=== PATIENT | female | born 1930 | race Caucasian/White ===

== ENCOUNTER 2018-07-10 14:53 | Inpatient (IN) | payer OTHER, MEDICARE ==
[2018-07-10] MEDS ORDERED: ONDANSETRON 4 MG/2 ML VIAL ONE ×2 (15:21→22:52)
[2018-07-10] MEDS ORDERED: FENTANYL CITR 100 MCG/2 ML ONE (15:21)
[2018-07-10] MEDS ORDERED: HYDROMORPHONE HCL 0.5 MG/0.5 ML INJ ONE ×2 (15:58→19:33)
[2018-07-10 16:15] LABS: Urine Blood TRACE (NEG); Urine Glucose NEGATIVE (NEG); Urine Protein NEGATIVE (NEG); Urine Specific Gravity 1.015 (1.005-1.030)
--- NOTE | 2018-07-10 16:36 | RAD REPORT ---
EXAM DESCRIPTION: CT - Head C Spine Mpr Wo Con - 07/10/2018 4:21 pm CLINICAL HISTORY: Head and neck injury status post fall. Head and neck pain COMPARISON: None. TECHNIQUE: Computed axial tomography of the head and cervical spine was obtained. Sagittal and coronal reconstruction was performed. All CT scans are performed using dose optimization technique as appropriate and may include automated exposure control or mA/KV adjustment according to patient size. FINDINGS: An intracranial bleed is not seen. The ventricles are normal in caliber. An extra-axial fl uid collection is not noted. A 9 millimeter soft tissue nodule abuts the left lateral ventricle. An equivocal 5 millimeter nodule abuts the right lateral ventricle. Fluid is present within the maxillary and sphenoid sinuses. A cervical fracture is not visualized. No dislocation is noted. Mild anterior subluxation of C4 on C5 is present. Soft tissue swelling is not seen. Spondylosis invol ves mid and distal cervical spine A 29 millimeter left thyroid nodule is present. A smaller right thyroid nodule is seen IMPRESSION: Small soft tissue nodules which abuts the lateral ventricles. These may represent masses or volume averaging of normal brain parenchyma. I suspect these are benign. However, it is recommend ed that the patient have a nonemergent MRI brain with contrast for further evaluation. No acute intracranial abnormality is seen A cervical fracture is not visualized. Mild anterior subluxation of C4 on C5 probably is chronic. If the patient has clinical symptoms to suggest spinal cord/ligamentous pathology then MRI would be nolan mmended Thyroid nodules. Nonemergent thyroid ultrasound is recommended
--- NOTE | 2018-07-10 16:44 | RAD REPORT ---
EXAM DESCRIPTION: RAD - Pelvis - 07/10/2018 4:38 pm CLINICAL HISTORY: Pelvic pain status post fall FINDINGS: The bones are osteoporotic No fracture or dislocation is seen. A left hip arthroplasty has been performed If the patient continues have symptoms to suggest an occult fracture MRI would be recommended
[2018-07-10] MEDS ORDERED: PROPOFOL 200 MG/20 ML VIAL IV ONE (17:29)
[2018-07-10] MEDS ORDERED: NA CHLORIDE 0.9% 1,000 ML ONE (17:31)
--- NOTE | 2018-07-10 17:40 | RAD REPORT ---
EXAM DESCRIPTION: RAD - Shoulder Right 2 View - 07/10/2018 4:38 pm CLINICAL HISTORY: Right shoulder pain status post fall FINDINGS: The bones are osteoporotic Anterior dislocation involves the humeral head. 27 millimeter density lies lateral to glenoid likely indicating an acute avulsion fracture perhaps f rom the humeral head. Less likely this represents artifact. Further evaluation with CT may be helpful
--- NOTE | 2018-07-10 17:40 | RAD REPORT ---
EXAM DESCRIPTION: RAD - Knee Right 2 View - 07/10/2018 4:38 pm CLINICAL HISTORY: Right knee pain status post fall FINDINGS: The bones are osteoporotic. Right knee arthroplasty has been performed. The patella appears dislocated laterally. A hemarthrosis is suspected. This could be secondary to the patellar dislocation or an occult fractur e. If clinically indicated further evaluation with MRI or CT could be obtained
--- NOTE | 2018-07-10 18:45 | RAD REPORT ---
EXAM DESCRIPTION: CT - Pelvis Wo Cont - 07/10/2018 6:24 pm CLINICAL HISTORY: Fall, pelvic pain, right-sided hip pain COMPARISON: None. TECHNIQUE: Axial 2 millimeter thick images of the pelvis obtained with sagittal and coronal reformat annalisa images generated and reviewed. FINDINGS: Lower lumbar degenerative changes are present. Lumbar spine is only partially imaged. No fracture of the bony pelvis. No sacral ala acute finding seen. SI joint degenerative changes are p resent. 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 No mass or hematoma seen in the soft tissues. No foreign gin dy or air in the soft tissues. IMPRESSION: No fracture or acute finding identified.
--- NOTE | 2018-07-10 18:54 | RAD REPORT ---
EXAM DESCRIPTION: CT - Knee Right Wo Cont - 07/10/2018 6:29 pm CLINICAL HISTORY: Fall, knee pain, history of arthroplasty, suspected dislocation COMPARISON: Right knee same date TECHNIQUE: Axial 2 millimeter thick images of the leg were obtained from distal femoral shaft to pro ximal tibia shaft. Sagittal and coronal reformatted images were generated and reviewed. FINDINGS: Osteopenic changes are present in the distal femur. No distal femur fracture identifiable. No fracture of the proximal fibula or proximal tibia seen. [place] bone immediately adjacent to the i mplant is limited in ability to assess the bone. No gross deformity seen. Patient overall is osteopen ic. A large joint effusion is present. There is a fat fluid level. This would support a lipoma hemarthros is. Patient could have chronic joint effusion as well. On CT imaging the patella is not dislocated. T his may be self reduced in the positioning for the examination. Multiple small fracture planes of the patella are seen rather than a single patella fracture plane. There is no distraction or separation of large patella fracture fragments. Bones are osteopenic in the patella. No air or foreign body. IMPRESSION: Multiple small fracture planes are seen traversing the patella. No distraction or separa tion of the patella into large fracture fragments. Large lipoma hemarthrosis. The patella is normally positioned. Any dislocation may have been reduced in the process of positioni ng the patient for this examination. Knee prosthesis in place. This limits assessment of the bone medially adjacent to the implant. Femur and tibia fractures are not seen.
--- NOTE | 2018-07-10 19:51 | RAD REPORT ---
EXAM DESCRIPTION: Shoulder Right 2 View - 07/10/2018 6:41 pm CLINICAL HISTORY: Shoulder dislocation, reduction attempts COMPARISON: July 10 TECHNIQUE: Internal rotation and scapular Y-views obtained. FINDINGS: Anterior dislocation of the humeral head remains. A faint crescent-shaped bony density is present along the inferior margin of the glenoid. There is a large bone defect seen along the humeral head where it impacts the anterior margin of the glenoid. Positioning of the humeral head has not ch anged. IMPRESSION: Humeral head remains dislocated anterior to the glenoid. Large fracture fragment from the humeral head is suspected. The donor site of the humeral head is imp acted on the glenoid.
--- NOTE | 2018-07-10 20:27 | RAD REPORT ---
EXAM DESCRIPTION: MRI - C Spine Wo Cont - 07/10/2018 7:56 pm CLINICAL HISTORY: Neck pain, fall COMPARISON: CT cervical spine same date TECHNIQUE: Sagittal T1-weighted, T2-weighted and T2-STIR sequences were obtained as well as T2 medic sequence. FINDINGS: Cervical bodies are normal in height. No fracture or acute cervical body finding. There is a mild anterior subluxation of C4 relative to C5. Minimal C5 retrolisthesis relative to C6. C3-4 dis c space is narrowed. 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 C5-6 and C6-7 disc space na rrowing seen. No paraspinal mass. Cerebellar tonsils and mid-line skull base show no suspicious finding. No significant finding at the C1 and C2 levels. C2-3 level: No significant findings. C3-4 level: No significant findings. C4-5 level: Disc bulge and posterior ligamentous thickening seen. Spinal stenosis is present down to 9 mm. Facet degenerative change present with mild bilateral bony foraminal encroachment. C5-6 level: Prominent endplate spurring and disc bulge changes contacted do not flatten the anterior cord. Midline canal diameter is 9 mm. Bilateral foraminal encroachment present right greater than lef t from uncovertebral joint hypertrophy. C6-7 level: Disc bulge and endplate spurring changes are present. Canal in the midline is 10 mm. C7-T1 level: No significant findings. Cervical cord shows no focal narrowing, expansion or signal abnormality. IMPRESSION: Multilevel cervical spondylosis changes are present as detailed. Mild spinal stenosis pr esent at C4-5 and C5-6. Multilevel foraminal stenosis detailed in the body of the report. No cord flattening or signal abnormality.
[2018-07-10 20:31] LABS: Absolute Lymphocytes (CBC) 0.7 K/uL (0.7-4.9); Absolute Monocytes 0.4 K/uL (0.1-1.3); Absolute Neutrophil 8.5 K/uL (1.8-8.0); Basophils % 0.5 % (0-1.3); Eosinophils % 0.1 % (0-4.4); Hematocrit 33.7 % (36.0-45.0); Lymphocytes % 7.6 % (15.3-44.8); MCH 29.1 pg (27.0-35.0); MCV 87.8 fL (80-100); MPV 9.4 fL (7.6-11.3); Monocytes % 4.3 % (3.3-12.3); RBC Red Blood Cell Count 3.83 M/uL (3.86-4.86)
[2018-07-10 20:42] LABS: Protime INR 1.03
[2018-07-10] MEDS ORDERED: MIDAZOLAM HCL 2 MG/2 ML INJ ONE ×2 (20:45→20:48)
[2018-07-10] MEDS ORDERED: ETOMIDATE 20 MG/10 ML VIAL IV ONE (20:46)
[2018-07-10 20:51] LABS: ALT/SGPT 20 U/L (12-78); AST/SGOT 17 U/L (15-37); Albumin 3.4 g/dL (3.4-5.0); Alkaline Phosphatase 108 U/L (45-117); BUN Blood Urea Nitrogen 27 mg/dL (7-18); Bicarbonate 29 mmol/L (21-32); Bilirubin Direct 0.2 mg/dL (0-0.2); Bilirubin Total 0.6 mg/dL (0.2-1.0); CKMB Creatine Kinase MB < 1.0 ng/mL (0.3-3.6); Creatine Phosphokinase 86 U/L (26-192); Glucose Level 152 mg/dL (74-106); Magnesium 1.5 mg/dL (1.8-2.4); NT PRO-BNP 541 pg/mL (<450); Potassium 3.8 mmol/L (3.5-5.1); Protein, Total 6.5 g/dL (6.4-8.2); Sodium Level 142 mmol/L (136-145)
--- NOTE | 2018-07-10 21:12 | RAD REPORT ---
EXAM DESCRIPTION: RAD - Chest Single View - 07/10/2018 8:39 pm CLINICAL HISTORY: Fall, chest pain, shoulder pain COMPARISON: July 2008 TECHNIQUE: AP portable chest image was obtained 2026 hours . FINDINGS: No pulmonary contusion, pneumothorax or acute lung parenchymal process. No failure or volu me overload. Heart size is prominent. Failure or volume overload are not suspected. No measurable ple ural effusion and no pneumothorax. Anterior dislocation of the right humerus present. Right shoulder findings are detailed on separate reports. No acute aortic findings suspected. IMPRESSION: No acute cardiopulmonary process. Right shoulder findings detailed on separate reports.
--- NOTE | 2018-07-10 21:16 | RAD REPORT ---
EXAM DESCRIPTION: Shoulder Right 2 View - 07/10/2018 9:07 pm CLINICAL HISTORY: Post reduction examination COMPARISON: July 10 TECHNIQUE: Internal and scapular Y-views obtained. FINDINGS: Right humeral head has been reduced back to the glenoid. Large fracture fragment is presen t as previously noted.
[2018-07-10 21:24] LABS: Blood Morphology Comment NOT SEEN (NOT SEEN); Platelet Estimate ADEQ; Urine White Blood Cell Casts OK
[2018-07-10] MEDS ORDERED: CEFTRIAXONE/SWI 1gm 1 GM/10 ML SYR ONE (22:20)
[2018-07-10] MEDS ORDERED: MAGNESIUM SULFATE 1 gm IVPB 1 GM/100 ML BAG IV ONE (22:20)
--- NOTE | 2018-07-10 22:24 | EDPHYS ---
Physician Documentation [facility] Name: Loretta Davidson Age: 88 yrs Sex: Female : 1930 Arrival Date: 07/10/2018 Time: 14:58 Bed 30 Private MD: ED Physician Gee Witt HPI: 07/10 22:11 This 88 yrs old Female presents to ER via EMS with complaints of Fall Injury. domingo 22:11 Details of fall: The patient fell from an upright position, while walking. Onset: The domingo symptoms/episode began/occurred just prior to arrival. Associated injuries: The patient sustained anterior aspect of right shoulder and posterior aspect of right shoulder, decreased range of motion, deformity, painful injury, right knee, decreased range of motion. Historical: - Allergies: 15:01 Codeine; rv 15:01 Ibuprofen; rv 15:01 PENICILLINS; rv - Home Meds: 15:01 None [Active]; rv - PMHx: 15:01 HIP FRACTURE; Hypertension; COPD; rv - PSHx: 15:01 None; rv - Immunization history:: Adult Immunizations up to date. - Social history:: Smoking status: Patient/guardian denies using tobacco, never smoked. - Immunization history: Last tetanus immunization: - up to date. - Ebola Screening: : Patient negative for fever greater than or equal to 101.5 degrees Fahrenheit, and additional compatible Ebola Virus Disease symptoms Patient denies exposure to infectious person Patient denies travel to an Ebola-affected area in the 21 days before illness onset. - Family history:: not pertinent. ROS: 22:11 Constitutional: Negative for fever, chills, and weight loss, Eyes: Negative for injury, domingo pain, redness, and discharge, ENT: Negative for injury, pain, and discharge, Neck: Negative for injury, pain, and swelling, Cardiovascular: Negative for chest pain, palpitations, and edema, Respiratory: Negative for shortness of breath, cough, wheezing, and pleuritic chest pain, Abdomen/GI: Negative for abdominal pain, nausea, vomiting, diarrhea, and constipation, Back: Negative for injury and pain, : Negative for injury, bleeding, discharge, and swelling, Skin: Negative for injury, rash, and discoloration, Neuro: Negative for headache, weakness, numbness, tingling, and seizure, Psych: Negative for depression, anxiety, suicide ideation, homicidal ideation, and hallucinations, Allergy/Immunology: Negative for hives, rash, and allergies, Endocrine: Negative for neck swelling, polydipsia, polyuria, polyphagia, and marked weight changes, Hematologic/Lymphatic: Negative for swollen nodes, abnormal bleeding, and unusual bruising. 22:11 MS/extremity: Positive for injury or acute deformity, decreased range of motion, pain, of the right arm and right leg. Exam: 22:11 Constitutional: This is a well developed, well nourished patient who is awake, alert, domingo and in no acute distress. Head/Face: Normocephalic, atraumatic. Eyes: Pupils equal round and reactive to light, extra-ocular motions intact. Lids and lashes normal. Conjunctiva and sclera are non-icteric and not injected. Cornea within normal limits. Periorbital areas with no swelling, redness, or edema. ENT: Nares patent. No nasal discharge, no septal abnormalities noted. Tympanic membranes are normal and external auditory canals are clear. Oropharynx with no redness, swelling, or masses, exudates, or evidence of obstruction, uvula midline. Mucous membranes moist. Neck: Trachea midline, no thyromegaly or masses palpated, and no cervical lymphadenopathy. Supple, full range of motion without nuchal rigidity, or vertebral point tenderness. No Meningismus. Chest/axilla: Normal chest wall appearance and motion. Nontender with no deformity. No lesions are appreciated. Cardiovascular: Regular rate and rhythm with a normal S1 and S2. No gallops, murmurs, or rubs. Normal PMI, no JVD. No pulse deficits. Respiratory: Lungs have equal breath sounds bilaterally, clear to auscultation and percussion. No rales, rhonchi or wheezes noted. No increased work of breathing, no retractions or nasal flaring. Abdomen/GI: Soft, non-tender, with normal bowel sounds. No distension or tympany. No guarding or rebound. No evidence of tenderness throughout. Back: No spinal tenderness. No costovertebral tenderness. Full range of motion. Female : Normal external genitalia. Skin: Warm, dry with normal turgor. Normal color with no rashes, no lesions, and no evidence of cellulitis. Neuro: Awake and alert, GCS 15, oriented to person, place, time, and situation. Cranial nerves II-XII grossly intact. Motor strength 5/5 in all extremities. Sensory grossly intact. Cerebellar exam normal. Normal gait. Psych: Awake, alert, with orientation to person, place and time. Behavior, mood, and affect are within normal limits. 22:11 Musculoskeletal/extremity: Extremities: noted in the anterior aspect of right shoulder and posterior aspect of right shoulder: decreased ROM, pain, swelling, tenderness, ROM: limited active range of motion due to pain, limited passive range of motion due to pain, Circulation is intact in all extremities. Sensation intact. Compartment Syndrome exam of affected extremity: is normal. DVT Exam: negative Homans' sign noted on exam, no appreciated bluish discoloration, no erythema, no increased warmth, pain, swelling, tenderness. Vital Signs: 15:02 BP 136 / 61; Pulse 64; Temp 98.9(O); Pulse Ox 96% ; rv 16:06 BP 103 / 62; Pulse 64; Pulse Ox 99% on 2 lpm NC; rv 16:46 BP 139 / 75; Pulse 60; Resp 18; Pulse Ox 99% on NC; tm3 17:22 Weight 86.18 kg (R); Height 5 ft. 6 in. (167.64 cm) (R); rv 17:46 BP 123 / 57; Pulse 63; Resp 27; Pulse Ox 98% on 2 lpm NC; rv 18:47 BP 98 / 68; Pulse 60; Resp 22; Pulse Ox 100% on 2 lpm NC; rv 19:11 BP 132 / 72; Pulse 63; Pulse Ox 98% on 2 lpm NC; rv 21:29 BP 158 / 74; Pulse 57; Resp 18; Pulse Ox 100% on 2 lpm NC; rv 17:22 Body Mass Index 30.67 (86.18 kg, 167.64 cm) rv Floyd Coma Score: 23:31 Eye Response: spontaneous(4). Verbal Response: oriented(5). Motor Response: obeys rv commands(6). Total: 15. Trauma Score (Adult): 23:31 Eye Response: spontaneous(1); Verbal Response: oriented(1); Motor Response: obeys rv commands(2); Systolic BP: > 89 mm Hg(4); Respiratory Rate: 10 to 29 per min(4); [place] Score: 15; Trauma Score: 12 Procedures: 07/11 07:55 Reduction: of the right shoulder, using traction, Immobilized with sling, Patient gs tolerated well. Post reduction film - still dislocated have called dr rodriguez to help reduce. Moderate sedation: Pre-procedure assessment: the patient has been NPO 4 hour(s) prior to arrival, ASA physical classification: III - organic disease with definite functional impairment, Airway assessment: able to hyperextend neck, able to maintain airway, can open mouth without difficulty, Mallampati classification of tongue size: II - faucial pillars and soft palate can be visualized, but uvula is masked by the base of the tongue, Monitoring during procedure: cardiac technician, continuous pulse oximetry, nurse at bedside at all times, Medications employed: propofol, Post-procedure assessment: the patient is mildly sedated, Mitchell sedation score: 2 - patient cooperative, oriented, and tranquil, Respiratory status: even and unlabored. MDM: 07/10 15:23 Patient medically screened. gs 07/11 07:55 Differential diagnosis: closed head injury, fracture, laceration, dislocation. Data gs reviewed: vital signs, nurses notes. Physician consultation: Jose Rodriguez MD and will see patient in ED. 07/10 15:57 Order name: Urine Dipstick--Ancillary (enter results); Complete Time: 16:59 ag 07/10 20:02 Order name: Basic Metabolic Panel; Complete Time: 22:10 [facility] 07/10 20:02 Order name: CBC with Diff; Complete Time: 22:10 [facility] 07/10 20:02 Order name: Creatinine for Radiology; Complete Time: 22:10 [facility] 07/10 20:02 Order name: Type And Screen; Complete Time: 22:10 [facility] 07/10 20:02 Order name: Ckmb; Complete Time: 22:10 [facility] 07/10 20:02 Order name: CPK; Complete Time: 22:10 [facility] 07/10 20:02 Order name: LFT's; Complete Time: 22:10 [facility] 07/10 20:02 Order name: Magnesium; Complete Time: 22:10 [facility] 07/10 20:02 Order name: NT PRO-BNP; Complete Time: 22:10 [facility] 07/10 20:02 Order name: PT-INR; Complete Time: 22:10 [facility] 07/10 20:02 Order name: Ptt, Activated; Complete Time: 22:10 [facility] 07/10 20:02 Order name: Troponin (emerg Dept Use Only); Complete Time: 22:10 [facility] 07/10 21:23 Order name: CBC Smear Scan; Complete Time: 22:10 [facility] 07/10 15:28 Order name: CT Head C Spine; Complete Time: 16:59 07/10 15:28 Order name: Shoulder Right (2 View) XRAY; Complete Time: 17:47 07/10 15:28 Order name: Pelvis XRAY; Complete Time: 16:59 07/10 16:37 Order name: Knee Right 2 View; Complete Time: 17:47 [facility] 07/10 18:07 Order name: Shoulder Right (2 View) XRAY; Complete Time: 19:59 07/10 18:07 Order name: CT Pelvis wo Cont; Complete Time: 18:52 07/10 18:19 Order name: Knee Right Wo Cont; Complete Time: 19:59 [facility] 07/10 22:11 Order name: Urine Culture [facility] 07/10 22:32 Order name: Basic Metabolic Panel [facility] 07/10 22:32 Order name: Basic Metabolic Panel [facility] 07/10 22:32 Order name: CBC with Automated Diff [facility] 07/10 22:32 Order name: CBC with Automated Diff [facility] 07/10 22:32 Order name: Troponin I [facility] 07/10 22:32 Order name: Troponin I [facility] 07/10 22:32 Order name: Troponin I [facility] 07/10 18:19 Order name: C Spine Wo Cont; Complete Time: 22:10 [facility] 07/10 20:02 Order name: Labs collected and sent [facility] 07/10 20:02 Order name: Urine Dipstick-Ancillary (obtain specimen) [facility] 07/10 20:02 Order name: XRAY Chest (1 view); Complete Time: 22:10 [facility] 07/10 20:02 Order name: EKG; Complete Time: 20:03 [facility] 07/10 20:02 Order name: Cardiac monitoring; Complete Time: 20:28 [facility] 07/10 20:02 Order name: EKG - Nurse/Tech; Complete Time: 21:35 [facility] 07/10 20:02 Order name: IV Saline Lock; Complete Time: 20:28 [facility] 07/10 20:02 Order name: O2 Per Protocol; Complete Time: 20:28 [facility] 07/10 20:02 Order name: O2 Sat Monitoring; Complete Time: 20:28 [facility] 07/10 20:53 Order name: Shoulder Right (2 View) XRAY; Complete Time: 22:10 rg2 07/10 21:07 Order name: Knee Immobilizer; Complete Time: 21:35 [facility] 07/10 22:32 Order name: CONS Physician Consult [facility] 07/10 22:32 Order name: Regular [facility] 07/10 22:32 Order name: EKG Electrocardiogram [facility] 07/10 22:32 Order name: EKG Electrocardiogram [facility] 07/10 22:32 Order name: EKG Electrocardiogram [facility] 07/10 22:32 Order name: EKG Electrocardiogram [facility] 07/10 22:32 Order name: Chest Single View [facility] 07/10 22:32 Order name: Chest Single View EDMS Administered Medications: 07/10 15:25 Drug: fentaNYL (PF) 100 mcg Route: IVP; Site: left antecubital; rv 16:02 Follow up: Response: No adverse reaction rv 15:25 Drug: Zofran 4 mg Route: IVP; Site: left antecubital; rv 15:39 Follow up: Response: No adverse reaction rv 20:27 Drug: NS 0.9% 1000 ml Route: IV; Rate: 125 ml/hr; Site: left antecubital; rv 22:15 Drug: Rocephin - (cefTRIAXone) 1 grams Route: IVPB; Infused Over: 30 mins; Site: left rv wrist; 22:36 Follow up: IV Status: Completed infusion rv 22:26 Drug: Magnesium Sulfate 1 grams Route: IVPB; Infused Over: 1 hrs; Site: left wrist; rv Disposition: 07/10/18 22:24 Hospitalization ordered by Sha Sanders for Inpatient Admission. Preliminary diagnosis are Fall due to bumping against object, Other dislocation of right shoulder joint - reduced, 2-part displaced fracture of surgical neck of right humerus, Fracture of patella, Cystitis, Hypomagnesemia. - Bed requested for Telemetry/MedSurg (Inpatient). - Status is Inpatient Admission. rv - Condition is Stable. - Problem is new. - Symptoms have improved. UTI on Admission? Yes Signatures: Dispatcher [employer] EDMS Tonia Pratt RN RN mw Anderson, Corey, MD MD cha Starr, Gregory, MD MD gs Vicente, Ronaldo, RN RN rv Corrections: (The following items were deleted from the chart) 16:37 15:29 Knee Right 3 View+RAD.RAD.BRZ ordered. EDMS EDMS 22:32 22:24 Hospitalization Ordered by Sha Sanders MD for Inpatient Admission. Preliminary mw diagnosis is Fall due to bumping against object; Other dislocation of right shoulder joint - reduced; 2-part displaced fracture of surgical neck of right humerus; Fracture of patella; Cystitis; Hypomagnesemia. Bed requested for Telemetry/MedSurg (Inpatient). Status is Inpatient Admission. Condition is Stable. Problem is new. Symptoms have improved. UTI on Admission? Yes. [facility] 23:34 22:32 07/10/2018 22:24 Hospitalization Ordered by Sha Sanders MD for Inpatient rv Admission. Preliminary diagnosis is Fall due to bumping against object; Other dislocation of right shoulder joint - reduced; 2-part displaced fracture of surgical neck of right humerus; Fracture of patella; Cystitis; Hypomagnesemia. Bed requested for Telemetry/MedSurg (Inpatient). Status is Inpatient Admission. Condition is Stable. Problem is new. Symptoms have improved. UTI on Admission? Yes. mw
--- NOTE | 2018-07-10 22:24 | ER ---
Nurse's Notes [facility] Name: Loretta Davidson Age: 88 yrs Sex: Female : 1930 Arrival Date: 07/10/2018 Time: 14:58 Bed 30 Private MD: Diagnosis: Fall due to bumping against object;Other dislocation of right shoulder joint-reduced;2-part displaced fracture of surgical neck of right humerus;Fracture of patella;Cystitis;Hypomagnesemia Presentation: 07/10 14:58 Presenting complaint: EMS states: "FELL WHILE WALKING HER DOG.". Transition of care: rv patient was not received from another setting of care. Onset of symptoms was July 10, 2018 at 14:00. Risk Assessment: Do you want to hurt yourself or someone else? Patient reports no desire to harm self or others. Initial Sepsis Screen: Does the patient meet any 2 criteria? No. Patient's initial sepsis screen is negative. Does the patient have a suspected source of infection? No. Patient's initial sepsis screen is negative. Care prior to arrival: None. 14:58 Method Of Arrival: EMS: [facility] 14:58 Acuity: [place] 3 rv 23:33 Mechanism of Injury: No Mechanism of Injury. Trauma event details: Injury occurred in [facility] [place] occurred: at home. Injury occurred: July 10, 2018 Injury occurred at: 17:00. Trauma Activation: Physician: ED Physician; Name: DR TURNER; Notified At: ; Arrived At: Physician: General Surgeon; Name: ; Notified At: ; Arrived At: Physician: Radiology; Name: ; Notified At: ; Arrived At: Physician: Respiratory; Name: ; Notified At: ; Arrived At: Physician: Lab; Name: ; Notified At: ; Arrived At: Historical: - Allergies: 15:01 Codeine; rv 15:01 Ibuprofen; rv 15:01 PENICILLINS; rv - Home Meds: 15:01 None [Active]; rv - PMHx: 15:01 HIP FRACTURE; Hypertension; COPD; rv - PSHx: 15:01 None; rv - Immunization history:: Adult Immunizations up to date. - Social history:: Smoking status: Patient/guardian denies using tobacco, never smoked. - Immunization history: Last tetanus immunization: - up to date. - Ebola Screening: : Patient negative for fever greater than or equal to 101.5 degrees Fahrenheit, and additional compatible Ebola Virus Disease symptoms Patient denies exposure to infectious person Patient denies travel to an Ebola-affected area in the 21 days before illness onset. - Family history:: not pertinent. Screenin:05 Abuse screen: Denies threats or abuse. Denies injuries from another. Nutritional rv screening: No deficits noted. Tuberculosis screening: No symptoms or risk factors identified. Fall Risk None identified. Primary Survey: 15:27 A: Airway: patent. Breathing/Chest: Respiratory pattern: regular. Circulation: Cardiac rv rhythm: sinus rhythm. Disability Alert. 23:32 Reassessment Breathing/Chest Respiratory pattern Regular. rv Assessment: 15:02 General: Appears in no apparent distress. uncomfortable, Behavior is calm, cooperative. rv Pain: Complains of pain in RIGHT SHOULDER, RIGHT HIP, RIGHT KNEE. Neuro: Level of Consciousness is awake, alert, obeys commands, Oriented to person, place, time, situation. Cardiovascular: Capillary refill < 3 seconds. Respiratory: Airway is patent. GI: No signs and/or symptoms were reported involving the gastrointestinal system. : No signs and/or symptoms were reported regarding the genitourinary system. EENT: No signs and/or symptoms were reported regarding the EENT system. Derm: Wound noted ABOVE THE OUTER CANTUS OF THE RIGHT EYE, RIGHT SHOULDER, RIGHT WRIST Wound is ABRASION. Musculoskeletal: Reports pain in RIGHT KNEE, RIGHT SHOULDER, AND RIGHT HIP. Vital Signs: 15:02 BP 136 / 61; Pulse 64; Temp 98.9(O); Pulse Ox 96% ; rv 16:06 BP 103 / 62; Pulse 64; Pulse Ox 99% on 2 lpm NC; rv 16:46 BP 139 / 75; Pulse 60; Resp 18; Pulse Ox 99% on NC; tm3 17:22 Weight 86.18 kg (R); Height 5 ft. 6 in. (167.64 cm) (R); rv 17:46 BP 123 / 57; Pulse 63; Resp 27; Pulse Ox 98% on 2 lpm NC; rv 18:47 BP 98 / 68; Pulse 60; Resp 22; Pulse Ox 100% on 2 lpm NC; rv 19:11 BP 132 / 72; Pulse 63; Pulse Ox 98% on 2 lpm NC; rv 21:29 BP 158 / 74; Pulse 57; Resp 18; Pulse Ox 100% on 2 lpm NC; rv 17:22 Body Mass Index 30.67 (86.18 kg, 167.64 cm) rv Floyd Coma Score: 23:31 Eye Response: spontaneous(4). Verbal Response: oriented(5). Motor Response: obeys rv commands(6). Total: 15. Trauma Score (Adult): 23:31 Eye Response: spontaneous(1); Verbal Response: oriented(1); Motor Response: obeys rv commands(2); Systolic BP: > 89 mm Hg(4); Respiratory Rate: 10 to 29 per min(4); Floyd Score: 15; Trauma Score: 12 ED Course: 14:58 Patient arrived in ED. rv 14:59 Triage completed. rv 15:05 Arm band placed on left wrist. rv 15:05 Patient has correct armband on for positive identification. Bed in low position. Call rv light in reach. Side rails up X2. Adult w/ patient. Pulse ox on. NIBP on. 15:11 Edvin Turner MD is Attending Physician. gs 15:29 Oxygen administration via nasal cannula \\T\\ 2L/min. rv 15:35 Calderon cath inserted, using sterile technique, 16 Fr., by mo, balloon inflated. tm3 16:21 CT Head C Spine In Process Unspecified. EDMS 16:38 Shoulder Right (2 View) XRAY In Process Unspecified. EDMS 16:38 Pelvis XRAY In Process Unspecified. EDMS 16:38 Knee Right 2 View In Process Unspecified. EDMS 18:00 Assist provider with reduction of right shoulder using manipulation, Set up for rv procedure. Performed by Edvin Turner MD Patient tolerated poorly. 18:[address] vr 18:24 CT Pelvis wo Cont In Process Unspecified. EDMS 18:29 Knee Right Wo Cont In Process Unspecified. EDMS 18:41 Shoulder Right (2 View) XRAY In Process Unspecified. EDMS 19:30 Patient moved to MRI via stretcher. ka 19:42 Attending Physician role handed off by Edvin Turner MD domingo 19:42 Gee Witt MD is Attending Physician. domingo 19:46 C Spine Wo Cont In Process Unspecified. EDMS 20:17 Radiology exam delayed due to IV insertion attempt and/or patient not having ml appropriate IV at this time. 20:18 Radiology exam delayed due to DOCTOR IN ROOM. ml 20:37 XRAY Chest (1 view) In Process Unspecified. EDMS 21:00 Assist provider with reduction of right shoulder using manipulation, Set up for rv procedure. Performed by Jose Mora MD Immobilized with shoulder immobilizer Patient tolerated well. 21:07 Shoulder Right (2 View) XRAY In Process Unspecified. EDMS 22:16 Sha Sanders MD is Hospitalizing Provider. domingo 23:34 Patient admitted, IV remains in place. intact. rv 23:34 Thermoregulation: warm blanket given to patient. rv Administered Medications: 15:25 Drug: fentaNYL (PF) 100 mcg Route: IVP; Site: left antecubital; rv 16:02 Follow up: Response: No adverse reaction rv 15:25 Drug: Zofran 4 mg Route: IVP; Site: left antecubital; rv 15:39 Follow up: Response: No adverse reaction rv 20:27 Drug: NS 0.9% 1000 ml Route: IV; Rate: 125 ml/hr; Site: left antecubital; rv 22:15 Drug: Rocephin - (cefTRIAXone) 1 grams Route: IVPB; Infused Over: 30 mins; Site: left rv wrist; 22:36 Follow up: IV Status: Completed infusion rv 22:26 Drug: Magnesium Sulfate 1 grams Route: IVPB; Infused Over: 1 hrs; Site: left wrist; rv Output: 15:59 Urine: 1555ml; Drainage: 250ml; Total: 1805ml. tm3 Outcome: 22:24 Decision to Hospitalize by Provider. domingo 23:32 Admitted to Med/surg accompanied by nurse, via stretcher, room 207, with chart, Report rv called to maday 23:32 Condition: good 23:32 Patient's length of stay was not longer than 2 hours. 23:34 Patient left the ED. rv Signatures: Dispatcher [employer] EDMS Pranay Campo tm3 Gee Witt MD MD cha Lopez, Yeni Powell Katelyn ka Starr, Gregory, MD MD gs Vicente, Ronaldo, ISRRAEL RN rv Corrections: (The following items were deleted from the chart) 15:59 15:57 Calderon cath inserted, using sterile technique, 16 Fr., by me, balloon inflated, [id number]
[2018-07-10] MEDS ORDERED: ACETAMINOPHEN 500 MG TAB PO PRN (22:28)
[2018-07-10] MEDS ORDERED: ONDANSETRON 4 MG/2 ML VIAL IV PRN (22:28)
[2018-07-10] MEDS ORDERED: MORPHINE 4 MG/ML SYR ONE (22:52)
[2018-07-10] MEDS: NA CHLORIDE 0.9% 1,000 ML IV SCH (23:51)
[2018-07-10] MEDS: MORPHINE 4 MG/ML SYR IV PRN (23:55)
[2018-07-11 00:39] VITALS: BMI 30.9
[2018-07-11] MEDS: LEVALBUTEROL 1.25 MG/3 ML NEB NEB SCH ×4 (01:47→19:59)
[2018-07-11] MEDS: IPRATROPIUM BROM 0.5MG/2.5ML NEB SCH ×4 (01:47→19:59)
--- NOTE | 2018-07-11 03:23 | CON ---
Date of Consultation: 07/10/2018 Reason For Consultation: Right shoulder, right knee pain. History Of Present Illness: Loretta is an 88-year-old female, who was brought to the ER today after s ustaining a fall onto her right side. The patient reports after the fall, she had pain in her right shoulder and right knee. X-rays in the emergency room demonstrated the right interior glenohumeral d islocation with fracture of the proximal humerus. Attempted closed reduction was performed in the ER by the ER physician and reduction was failed. I was consulted for further evaluation and treatment. The patient also reports pain with her right knee. She was ambulatory prior to the fall. After th e fall, she was not able to mobilize secondary to pain. She has history of a right total knee arthro plasty in [address] Chavez. Review of Systems: As above, otherwise negative. Past Medical History: Includes hypertension, COPD. Past Surgical History: Includes a right total knee arthroplasty and a left hip hemiarthroplasty. Home Medications: Per med rec. Allergies: CODEINE, IBUPROFEN, AND PENICILLIN. Social History: Denies tobacco or alcohol use. Physical Examination: General: No apparent distress. HEENT: Normocephalic, atraumatic. Neck: Supple. Cardiovascular: Brisk cap refill to all digits. Chest: Nonlabored breathing. Abdomen: Nondistended. Psychiatric: Responds to exam. Musculoskeletal: Right upper extremity, positive firing EPL, FPL, intrinsics. Sensation grossly int act in the radial, median, ulnar, and axillary nerve distributions. She does have some swelling over the right proximal humerus. 2+ radial pulse. Right upper extremity, pain with range of motion of t he right shoulder. No pain with range of motion of the elbow or wrist. Right lower extremity, there is a moderate hemarthrosis. Tenderness to palpation over the medial and lateral femoral condyles as well as anterior aspect of the knee. No significant instability with varus and valgus stress. Sens ation grossly intact to the dorsal and plantar surface of the right foot. Positive firing of EHL, FH L, gastrocsoleus complex, tibialis anterior. No pain with range of motion of the right hip. Left lo wer extremity, no pain with range of motion of the left hip, knee, or ankle. Neurovascularly intact distally. Left upper extremity, functional range of motion without pain. No gross deformities. No obvious dislocations. Diagnostic Studies: Studies x-rays of right shoulder demonstrates an anterior glenohumeral dislocati on with Hill-Sachs deformity and area of calcification consistent with likely avulsion fracture of th e proximal humerus. Postreduction x-rays demonstrate reduction of the glenohumeral joint with Hill-S achs deformity. X-rays of the right knee demonstrate a fracture along the lateral epicondyle of the distal femur. No signs of hardware loosening of her total knee arthroplasty. CAT scan does show angelic e fracture lines with the patella, but there is no significant displaced fracture of the patella. Assessment And Plan: Loretta is an 88-year-old female with a right glenohumeral fracture dislocation, status post closed reduction in the right knee at the lateral epicondyle, distal femoral fracture, a nd nondisplaced patella fracture. At this point, the patient underwent closed reduction without comp lication. We will begin with a trial of nonoperative treatment. She will remain in a shoulder immob ilizer at this time and be nonweightbearing of her right upper extremity. She was placed in a knee i mmobilizer in the ER. She will be admitted to the floor under the service of Dr. Sanders. Physical The rapy will be consulted. She may be weightbearing as tolerated on the right lower extremity with the use of a knee immobilizer. CV/MODL Voice ID: [id number] Report ID: [id number]
[2018-07-11] MEDS: NA CHLORIDE 0.9% 1,000 ML IV SCH ×3 (03:34→23:33)
[2018-07-11] MEDS: MORPHINE 4 MG/ML SYR IV PRN ×2 (03:36→08:10)
[2018-07-11 05:23] LABS: Urine Appearance CLOUDY; Urine Bilirubin NEGATIVE (NEG); Urine Blood 2+ (NEG); Urine Color YELLOW; Urine Glucose NEGATIVE (NEG); Urine Protein NEGATIVE (NEG); Urine Urobilinogen 0.2 mg/dL (0.2-1.0); Urine pH 5.5 (5.0-7.0)
[2018-07-11 05:24] LABS: Urine Microscopic Reflex ORDER UMIC
[2018-07-11 05:35] LABS: Urine Bacteria <20 /HPF (<20); Urine Culture Reflex Order REFLEXED; Urine Mucus LIGHT /HPF (NONE SEEN); Urine RBC <5 /HPF (NONE SEEN)
[2018-07-11 05:37] LABS: Absolute Lymphocytes (CBC) 0.9 K/uL (0.7-4.9); Absolute Monocytes 0.6 K/uL (0.1-1.3); Absolute Neutrophil 6.3 K/uL (1.8-8.0); Basophils % 0.4 % (0-1.3); Eosinophils % 0.1 % (0-4.4); Hematocrit 31.2 % (36.0-45.0); Lymphocytes % 11.9 % (15.3-44.8); MCH 29.4 pg (27.0-35.0); MCV 87.6 fL (80-100); MPV 9.1 fL (7.6-11.3); Monocytes % 7.8 % (3.3-12.3); RBC Red Blood Cell Count 3.56 M/uL (3.86-4.86)
[2018-07-11 05:56] LABS: Potassium 4.1 mmol/L (3.5-5.1)
[2018-07-11] MEDS: MAGNESIUM OXIDE 400 MG TAB PO SCH ×2 (08:11→20:41)
[2018-07-11] MEDS: ASPIRIN EC 81 MG TAB PO SCH (08:11)
--- NOTE | 2018-07-11 08:41 | RAD REPORT ---
EXAM DESCRIPTION: Mendoza Single View07/11/2018 6:25 am CLINICAL HISTORY: Chest pain COMPARISON: July 10, 2018 FINDINGS: The lungs appear clear of acute infiltrate. The heart is normal size Right proximal humeral fracture is again noted.
[2018-07-11] MEDS ORDERED: MORPHINE 4 MG/ML SYR IM PRN (08:58)
[2018-07-11] MEDS ORDERED: CEFTRIAXONE 1 GM/NS 50 ML 1 GM/50 ML BAG IV SCH (09:00)
[2018-07-11] MEDS ORDERED: HYDROCODONE/APAP 7.5/325 MG TAB PO PRN (09:00)
[2018-07-11] MEDS: CEFTRIAXONE/SWI 1gm 1 GM/10 ML SYR IVP SCH (09:20)
[2018-07-11] MEDS ORDERED: MEPERIDINE HCL 25 MG/0.5 ML IV PRN (09:24)
--- NOTE | 2018-07-11 09:26 | P.PN ---
Subjective Date of Service: 07/11/18 Chief Complaint: s/p right shoulder closed reduction and patella/lat femoral epicondyle fx increased pain this AM Physical Examination - Vital Signs Temperature: 97.5 F Blood Pressure: 130/59 Pulse: 69 Respirations: 18 Pulse Ox (%): 99 - Physical Exam General: Alert, In no apparent distress Musculoskeletal: Other (RUE: +EPL/FPL/intrinsics; sensation grossly intact distally; shoulder immobilizer in place; RLE: + swelling/hemarthrosis of knee; compartments soft; NVI distally) - Studies Laboratory Data (last 24 hrs) 07/10/18 20:15: PT 12.2, INR 1.03, APTT 21.4 L 07/10/18 20:15: Creatinine 1.30 07/10/18 20:15: WBC 9.8, Hgb 11.1 L, Hct 33.7 L, Plt Count 182 07/10/18 20:15: Sodium 142, Potassium 3.8, BUN 27 H, Creatinine 1.30, Glucose 152 H, Magnesium 1.5 L, Total Bilirubin 0.6, AST 17, ALT 20, Alkaline Phosphatase 108 Assessment And Plan - Plan Loretta is an 88 yo female s/p closed reduction of her right proximal humerus fracture/dislocation and right nondisplaced patella fracture with lateral femoral epicondyle fracture -no surgical intervention planned at this time -PT to mobilize; NWB RUE and remain in shoulder immobilizer; WBAT on RLE in knee immobilizer; may be out of immobilizer while in bed -depending on safety with mobilizing with PT, may need placement -pain control; added [place] and may take Zofran prior to dosage with h/o nausea; will add IV Demerol
[2018-07-11] MEDS ORDERED: ENOXAPARIN 40 MG/0.4 ML SQ ONE (12:20)
[2018-07-11] MEDS ORDERED: ONDANSETRON 4 MG/2 ML VIAL IV PRN (12:23)
[2018-07-11] MEDS ORDERED: [UNRECOGNIZED DRUG - REMARK] PO PRN (12:23)
[2018-07-11] MEDS: HYDROCODONE/APAP 7.5/325 MG TAB PO SCH ×2 (14:12→20:41)
[2018-07-11] MEDS: PANTOPRAZOLE 40MG TABLET PO SCH (15:50)
[2018-07-11] MEDS: MEPERIDINE HCL 50 MG/ML AMP IV PRN (16:44)
[2018-07-11] MEDS: DIPHENHYDRAMINE 25 MG TAB/CAP PO PRN (19:00)
[2018-07-11] MEDS: DOCUSATE NA/SENNA CONC 1 TAB PO SCH (20:41)
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
[2018-07-12] MEDS: LEVALBUTEROL 1.25 MG/3 ML NEB NEB SCH ×4 (02:11→19:44)
[2018-07-12] MEDS: IPRATROPIUM BROM 0.5MG/2.5ML NEB SCH ×4 (02:11→19:44)
[2018-07-12 08:14] LABS: Absolute Lymphocytes (CBC) 1.3 K/uL (0.7-4.9); Absolute Monocytes 0.4 K/uL (0.1-1.3); Absolute Neutrophil 4.5 K/uL (1.8-8.0); Basophils % 0.2 % (0-1.3); Eosinophils % 1.1 % (0-4.4); Hematocrit 27.1 % (36.0-45.0); Lymphocytes % 20.9 % (15.3-44.8); MCH 29.3 pg (27.0-35.0); MCV 88.3 fL (80-100); MPV 8.8 fL (7.6-11.3); RBC Red Blood Cell Count 3.07 M/uL (3.86-4.86)
[2018-07-12] MEDS: MAGNESIUM OXIDE 400 MG TAB PO SCH ×2 (08:20→20:22)
[2018-07-12] MEDS: FUROSEMIDE 20 MG TABLET PO SCH (08:20)
[2018-07-12] MEDS: METOPROLOL XL 50 MG TAB PO SCH (08:21)
[2018-07-12] MEDS: LOSARTAN POTASSIUM 50 MG TABLET PO SCH (08:22)
[2018-07-12] MEDS: HYDROCODONE/APAP 7.5/325 MG TAB PO SCH ×3 (08:22→20:16)
[2018-07-12] MEDS: CEFTRIAXONE/SWI 1gm 1 GM/10 ML SYR IVP SCH (08:23)
[2018-07-12] MEDS: ENOXAPARIN 40 MG/0.4 ML SQ SCH (08:23)
[2018-07-12] MEDS: ASPIRIN EC 81 MG TAB PO SCH (08:23)
[2018-07-12] MEDS: PANTOPRAZOLE 40MG TABLET PO SCH (08:23)
[2018-07-12 08:27] LABS: Potassium 3.6 mmol/L (3.5-5.1)
[2018-07-12 08:55] LABS: Thyroid Stimulating Hormone 1.2 uIU/mL (0.36-3.74)
[2018-07-12] MEDS ORDERED: HOME MED 1 EA UNK (Umeclidinium Brm/Vilanterol Tr [Anoro Ellipta 62.5-25 Mcg Inh] 1 PUFF) IH SCH (09:00)
[2018-07-12] MEDS ORDERED: HOME MED 1 EA UNK (Losartan Potassium [Losartan Potassium] 25 MG) PO SCH (09:00)
[2018-07-12] MEDS ORDERED: OMEPRAZOLE MAGNESIUM 20 MG PO SCH (09:00)
--- NOTE | 2018-07-12 11:08 | P.PN ---
Subjective Date of Service: 07/12/18 Chief Complaint: s/p right shoulder closed reduction and patella/lat femoral epicondyle fx Subjective: Improving, Working w/ PT pain controlled this AM Physical Examination - Vital Signs Temperature: 99.2 F Blood Pressure: 136/61 Pulse: 99 Respirations: 16 Pulse Ox (%): 97 - Physical Exam General: Alert, In no apparent distress Musculoskeletal: Other (RUE: in shoulder immobilizer; NVI distally RLE: in knee immobilizer; +EHL/FHL/GSC/TA; NVI distally) - Studies Microbiology Data (last 24 hrs): 07/10/18 22:20 Clean Catch Urine [place] Count - Final >100,000 CFU/ML. 07/10/18 22:20 Clean Catch Urine - Final Escherichia Coli Assessment And Plan - Plan Loretta is an 88 yo female s/p closed reduction of her right proximal humerus fracture/dislocation and right nondisplaced patella fracture with lateral femoral epicondyle fracture -no surgical intervention planned at this time -PT to mobilize; NWB RUE and remain in shoulder immobilizer; WBAT on RLE in knee immobilizer; may be out of immobilizer while in bed -depending on safety with mobilizing with PT, may need placement -lovenox for DVT prophylaxis -pain control; [place] and may take Zofran prior to dosage with h/o nausea; IV Demerol
--- NOTE | 2018-07-12 14:39 | PN ---
Date of Progress Note: 07/12/2018 Subjective: The patient was seen this morning for followup. No new complaints or problems reported by her, except some itching. She did receive Benadryl last night and we will consider using during d ay time on a p.r.n. basis for this itching, which is likely due to some pain medication. She reports that the current schedule of pain medication is helping to control her pain well. No abdominal pain , nausea, vomiting. No bowel movement yet. Objective: Vital Signs: Reviewed. HEENT: Examination unremarkable. Lungs: Clear to auscultation. Heart: Sounds normal. Abdomen: Soft. Bowel sounds normal. No guarding, rigidity, tenderness, distention. Extremities: Trace leg edema. Bruising from right upper extremity and right knee remains unchanged. Laboratory Data: CBC and chemistry results from this morning are pending. Impression: 1.Fracture, right patella. 2.Fracture, right shoulder. 3.Dislocation, right shoulder, status post reduction. 4.Anemia. 5.Hypertension. 6.Urinary tract infection. Plan: Urine culture result reviewed. The patient is on ceftriaxone. We will continue that. The keiry randall was advised to drink about 50 to 60 ounce of water a day and we will discontinue her IV fluid. Continue current pain medications, stool softener, and laxative as needed. Continue current home me dications. We will follow up on blood work results today and Physical Therapy to work with the patient. GIA/MODL Voice ID: [id number] Report ID: [id number]
[2018-07-12] MEDS: MEPERIDINE HCL 50 MG/ML AMP IV PRN ×2 (17:31→22:48)
[2018-07-12] MEDS: NA CHLORIDE 0.9% 1,000 ML IV SCH ×2 (17:31→20:16)
[2018-07-12] MEDS: MAGNESIUM HYDROXIDE 8% 30 ML PO PRN (20:16)
[2018-07-12] MEDS: DOCUSATE NA/SENNA CONC 1 TAB PO SCH (20:16)
[2018-07-12] MEDS: DIPHENHYDRAMINE 25 MG TAB/CAP PO PRN (21:56)
[2018-07-13] MEDS ORDERED: MEPERIDINE HCL 25 MG/0.5 ML IV ONE (00:14)
[2018-07-13] MEDS: IPRATROPIUM BROM 0.5MG/2.5ML NEB SCH ×4 (01:39→20:11)
[2018-07-13] MEDS: LEVALBUTEROL 1.25 MG/3 ML NEB NEB SCH ×4 (01:39→20:11)
[2018-07-13] MEDS ORDERED: DIPHENHYDRAMINE 25 MG TAB/CAP PO PRN (07:58)
[2018-07-13] MEDS: CEFTRIAXONE/SWI 1gm 1 GM/10 ML SYR IVP SCH (08:38)
[2018-07-13] MEDS: ENOXAPARIN 40 MG/0.4 ML SQ SCH (08:38)
[2018-07-13] MEDS: PANTOPRAZOLE 40MG TABLET PO SCH (08:39)
[2018-07-13] MEDS: LOSARTAN POTASSIUM 50 MG TABLET PO SCH (08:39)
[2018-07-13] MEDS: FE SULF/FA/VIT B COMP & C TAB PO SCH (08:39)
[2018-07-13] MEDS: METOPROLOL XL 50 MG TAB PO SCH (08:39)
[2018-07-13] MEDS: MAGNESIUM OXIDE 400 MG TAB PO SCH ×2 (08:40→21:00)
[2018-07-13] MEDS: FUROSEMIDE 20 MG TABLET PO SCH (08:40)
[2018-07-13] MEDS: ASPIRIN EC 81 MG TAB PO SCH (08:41)
[2018-07-13] MEDS: HYDROCODONE/APAP 7.5/325 MG TAB PO SCH ×5 (08:41→21:19)
[2018-07-13] MEDS: MAGNESIUM HYDROXIDE 8% 30 ML PO PRN (08:42)
--- NOTE | 2018-07-13 10:32 | RAD REPORT ---
EXAM DESCRIPTION: RAD - Foot Left 3 View - 07/13/2018 9:06 am CLINICAL HISTORY: Left Foot pain FINDINGS: The bones are osteoporotic. Cortical regularity involves the base of the first proximal phalanx which may indicate a fracture. No dislocation is noted An old fracture of second proximal phalanx is suspected.
[2018-07-13] MEDS: MEPERIDINE HCL 50 MG/ML AMP IV PRN (11:56)
--- NOTE | 2018-07-13 13:16 | P.PN ---
Subjective Date of Service: 07/13/18 Chief Complaint: s/p right shoulder closed reduction and patella/lat femoral epicondyle fx pain controlled this AM; also reports some left foot pain; xrays demonstrated left 1st proximal phalanx fracture Physical Examination - Vital Signs Temperature: 98.7 F Blood Pressure: 103/50 Pulse: 80 Respirations: 18 Pulse Ox (%): 94 - Physical Exam General: Alert, In no apparent distress Musculoskeletal: Other (LLE: ecchymoses; ttp over the proximal phalanx of great toe; NVI distally; RUE: in shoulder immobilizer; EPL/FPL/intrinisics; NVI distally; RLE: + swelling right knee with ttp over the anterior/medial/lateral knee; NVI distally) Assessment And Plan - Plan Loretta is an 88 yo female s/p closed reduction of her right proximal humerus fracture/dislocation and right nondisplaced patella fracture with lateral femoral epicondyle fracture and left toe proximal phalanx fracture -no surgical intervention planned at this time -PT to mobilize; NWB RUE and remain in shoulder immobilizer; WBAT on RLE in knee immobilizer; may be out of immobilizer while in bed -WBAT LLE in hard sole shoe -depending on safety with mobilizing with PT, may need placement -lovenox for DVT prophylaxis -pain control; [place] and may take Zofran prior to dosage with h/o nausea; IV Demerol
--- NOTE | 2018-07-13 15:48 | RAD REPORT ---
EXAM DESCRIPTION: US - Thyroid Para Parotid Gland - 07/13/2018 3:14 pm CLINICAL HISTORY: thyroid nodule COMPARISON: Head C Spine Mpr Wo Con dated 07/10/2018; C Spine Wo Cont dated 07/10/2018 FINDINGS: The isthmus of the thyroid measures 10 mm and is heterogenous. The right lobe of the thyroid measures 4.6 x 2.2 x 1.5 cm. The left lobe of the thyroid measures 5.1 x 2.9 x 2.2 cm. Nodules: Isthmus: None Right Lobe: Predominately dominant cystic nodule measuring 2.2 x 2.3 cm. Left Lobe: Dominant heterogenous solid nodule with calcifications measuring 3.0 x 3.5 cm. IMPRESSION: Bilateral thyroid nodules as detailed. The dominant left-sided nodule may benefit from u ltrasound-guided FNA assessment.
--- NOTE | 2018-07-13 16:15 | ECHO ---
HEIGHT: 5 ft 6 in WEIGHT: 192 lb 0 oz DATE OF STUDY: 07/13/[address]: Sha Sanders MD 2-DIMENSIONAL: YES M.MODE: YES DOPPLER: YES COLOR FLOW: YES TDS: PORTABLE: DEFINITY: BUBBLE STUDY: DIAGNOSIS: VENTRICULAR TACHYCARDIA CARDIAC HISTORY: CATHERIZATION: NO SURGERY: NO PROSTHETIC VALVE: NO PACEMAKER: NO MEASUREMENTS (cm) DIASTOLIC (NORMALS) SYSTOLIC (NORMALS) IVSd 1.0 (0.6-1.2) LA Diam 3.9 (1.9-4.0) LVEF 82% LVIDd 4.3 (3.5-5.7) LVIDs 2.1 (2.0-3.5) %FS 51% LVPWd 1.0 (0.6-1.2) Ao Diam 2.8 (2.0-3.7) 2 DIMENSIONAL ASSESSMENT: RIGHT ATRIUM: NORMAL LEFT ATRIUM: NORMAL RIGHT VENTRICLE: NORMAL LEFT VENTRICLE: NORMAL TRICUSPID VALVE: NORMAL MITRAL VALVE: NORMAL PULMONIC VALVE: NORMAL AORTIC VALVE: NORMAL PERICARDIAL EFFUSION: NONE AORTIC ROOT: NORMAL LEFT VENTRICULAR WALL MOTION: NORMAL DOPPLER/COLOR FLOW: NORMAL COMMENTS: NORMAL TWO DIMENSIONAL ECHOCARDIOGRAM WITH DOPPLER. TECHNOLOGIST: QUIANA ECHEVERRIA
--- NOTE | 2018-07-13 18:21 | RAD REPORT ---
EXAM DESCRIPTION: MRI - Brain W/Wo Cont - 07/13/2018 4:57 pm CLINICAL HISTORY: abnormal CT head Headache COMPARISON: Head C Spine Mpr Wo Con dated 07/10/2018 TECHNIQUE: Multi-sequence, multiplanar MR imaging of the brain was performed with contrast. FINDINGS: No intracranial hemorrhage, hydrocephalus, extra-axial fluid collection or acute infarctio n. No edema or shift of midline structures. Subtle areas of subependymal nodularity seen particularly in the region of the left lateral ventricle body, which do not enhance.Mild T2 and FLAIR hyperintens ity is seen in the periventricular and deep white matter likely related to chronic microvascular isch emic changes. Moderate brain atrophy. DWI is negative for acute CVA. The midline structures are normally formed. Chronic mucosal thickening of both maxillary antra spheno id sinus noted. Post-contrast images show no abnormal enhancement to suggest tumor or infection. IMPRESSION: Negative for acute CVA or other acute intracranial process. 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 Moderate chronic sinusitis.
--- NOTE | 2018-07-13 20:19 | CON ---
Reason For Consultation: Ventricular tachycardia. History Of Present Illness: Ms. Davidson is an 88-year-old. She has had nonsustained ventricular ta chycardia episodes since the 1980s. She has been on beta-blockers various doses and she feels it has never caused her to have syncope. She has never had coronary heart disease, cardiomyopathy, or any sustained VT. Usually 3-5 beats. Today after being in the hospital since the and today is the , she had one 3-beat run of VT. It was polymorphic varying cycle lengths and then quit all signs that benign arrhythmias are present. She has never had myocardial infarction or stroke. She takes diphenhydramine, acetaminophen, albuterol, Anoro Ellipta, omeprazole, aspirin, furosemide, metoprolol , and losartan. She uses no tobacco. Rare alcohol. No illegal drugs. She is in the hospital where she tripped on an uneven patch of grass, fell and her right humerus is fractured and her left great toe has fractured. Physical Examination: General: Alert, oriented, pleasant. Lungs: Clear. Carotids: No bruit. Heart: Normal. Extremities: Normal distal pulses. No cyanosis, clubbing, or edema. Impression: We do not need to add any antiarrhythmic drugs because of this, this is a long-standing problem that causes few symptoms and if we simply continue the metoprolol, keep her electrolytes good . She is likely to do very well with it. An echocardiogram is pending. SHELBY Voice ID: [id number] Report ID: [id number]
[2018-07-13] MEDS: DOCUSATE NA/SENNA CONC 1 TAB PO SCH (21:19)
[2018-07-13] MEDS: DIPHENHYDRAMINE 25 MG TAB/CAP PO PRN (21:20)
--- NOTE | 2018-07-13 23:58 | PN ---
Date of Progress Note: 07/13/2018 Subjective: The patient was seen this morning for followup. She has some itching off and on and las t night, she did give extra dose of IV Demerol because of her pain was not controlled with the schedu le doses of medication. This morning, she was feeling fine. No new complaints or problems reported. She still has not had a bowel movement since her admission. Objective: Vital Signs: Reviewed. HEENT: Unremarkable. Lungs: Clear to auscultation. Heart: Sounds normal. Abdomen: Soft. Bowel sounds normal. No guarding, rigidity, tenderness, or distention. Extremities: No leg edema. Laboratory Data: Reviewed. Impression: 1.Fracture, right patella. 2.Right shoulder fracture. 3.Hypertension. 4.Chronic obstructive pulmonary disease. 5.Paroxysmal ventricular tachycardia. 6.Thyroid nodule. 7.Constipation. 8.Abnormal CAT scan of head. Plan: MRI of the brain was ordered per radiologist's recommendation for further evaluation of abnorm ality detected on the CAT scan of the brain. Thyroid ultrasound was ordered. We will continue curre nt DVT prophylaxis. The patient has significant area of bruising on the left foot from the fall and injury prior to this admission and foot x-ray was not done in the ER, and we will try to get that don e today. Follow up with physical therapy and the patient was made aware that depending on her evalua tion and recommendation by Physical Therapy and decision from Rehab Floor, we will see if she can go to inpatient rehab or not. For ventricular tachycardia, I have ordered echocardiogram and consult Ca rdiology. The patient says that before she moved here from [facility], she was seeing shingle cutter for a ventricular tachycardia and no further intervention was suggested in the past because it was mo stly at nighttime and echocardiogram was normal as she says when done in the past. Last night, she h ad 6-beat run of ventricular tachycardia and we will see what our shingle cutter has to say, but if the echocardiogram comes back okay with normal ejection fraction, then we may not need to pursue any fur ther intervention. Details were discussed with the patient. GIA/MODL Voice ID: [id number] Report ID: [id number]
[2018-07-14] MEDS: NA CHLORIDE 0.9% 1,000 ML IV SCH ×2 (00:12→05:57)
[2018-07-14] MEDS: IPRATROPIUM BROM 0.5MG/2.5ML NEB SCH ×3 (02:23→13:37)
[2018-07-14] MEDS: LEVALBUTEROL 1.25 MG/3 ML NEB NEB SCH ×3 (02:23→13:37)
[2018-07-14 05:09] LABS: Absolute Lymphocytes (CBC) 1.2 K/uL (0.7-4.9); Absolute Monocytes 0.4 K/uL (0.1-1.3); Absolute Neutrophil 3.3 K/uL (1.8-8.0); Basophils % 0.8 % (0-1.3); Eosinophils % 3.2 % (0-4.4); Hematocrit 24.9 % (36.0-45.0); Lymphocytes % 24.1 % (15.3-44.8); MCH 30.2 pg (27.0-35.0); MCV 87.9 fL (80-100); MPV 9.2 fL (7.6-11.3); Monocytes % 7.6 % (3.3-12.3); RBC Red Blood Cell Count 2.83 M/uL (3.86-4.86)
[2018-07-14 05:46] LABS: Magnesium 1.8 mg/dL (1.8-2.4); Potassium 3.6 mmol/L (3.5-5.1)
[2018-07-14] MEDS: HYDROCODONE/APAP 7.5/325 MG TAB PO SCH ×3 (05:57→11:41)
[2018-07-14] MEDS: PANTOPRAZOLE 40MG TABLET PO SCH (05:57)
[2018-07-14] MEDS ORDERED: BISACODYL 10 MG RECTAL SUPP PR ONE (08:08)
[2018-07-14] MEDS ORDERED: VITAMIN D 1000 UNIT TAB PO SCH (09:00)
[2018-07-14] MEDS: ENOXAPARIN 40 MG/0.4 ML SQ SCH (10:28)
[2018-07-14] MEDS: FUROSEMIDE 20 MG TABLET PO SCH (10:29)
[2018-07-14] MEDS: LOSARTAN POTASSIUM 50 MG TABLET PO SCH (10:29)
[2018-07-14] MEDS: CEFTRIAXONE/SWI 1gm 1 GM/10 ML SYR IVP SCH (10:30)
[2018-07-14] MEDS: FE SULF/FA/VIT B COMP & C TAB PO SCH (10:30)
[2018-07-14] MEDS: MAGNESIUM OXIDE 400 MG TAB PO SCH (10:30)
[2018-07-14] MEDS: ASPIRIN EC 81 MG TAB PO SCH (10:30)
[2018-07-14] MEDS: METOPROLOL XL 50 MG TAB PO SCH (10:31)
[2018-07-14 17:57] VITALS: O2SAT 95
[2018-07-14 18:45] VITALS: BP 110/52; TEMP 97.8
--- NOTE | 2018-07-15 18:37 | DS ---
Date of Discharge: 07/14/2018 Subjective: The patient was seen this morning for followup, lying in bed not in distress. Physical Examination: Vital Signs: Reviewed. HEENT: Examination unremarkable. Lungs: Clear to auscultation. Heart: Sounds normal. Abdomen: Soft. Bowel sounds normal. No guarding, rigidity, tenderness, distention. Extremities: Bilateral trace leg edema. Bruising of the right knee area unchanged and bruising of l eft foot unchanged. Bruising of right upper extremity unchanged and right upper extremity is in slin g. Hospital Course: This is an 88-year-old female patient who fell down and was brought into the emerge ncy room after this. After she was evaluated in the ER, she was admitted to the hospital. Please se e dictated H and P for more information. Further evaluation done in the emergency room included rout ine labs and multiple x-rays, CAT scan, MRI and her CAT scan of the brain had shown some abnormality in the periventricular region and as a result of that MRI of the brain was done which was negative fo r any acute findings. CAT scan of the cervical spine was negative for any acute fracture or any acut e surgical finding. Her knee x-ray and CAT scan of the knee had shown evidence of right knee patella r fracture and the presence of right knee hemarthrosis. Left foot x-ray was done yesterday which was positive for old fracture of the proximal phalanx of left foot second toe, but no acute fracture not ed. Thyroid ultrasound had shown evidence of large thyroid nodule on both side. The patient says th at she was told to have a thyroid nodule in [place] and she did not want to have thyroid biopsy and we will see how this nodule is compared to before. We will try to get a copy of her prior thyroid ultr asound and then we will decide whether biopsy should be done on an elective outpatient basis or we sh ould just follow up on it. She did have episode of ventricular tachycardia 6 beats and echocardiogra m done showed normal ejection fraction. Urine culture has grown E. coli. After she was admitted to the hospital, she received IV antibiotic which is ceftriaxone, IV fluid was given and Calderon catheter is in place. The patient has lot of pain in her right knee and we will dec marc to remove Calderon catheter in next few days, but at the present time she is not able to move around freely in order for us to take the Calderon catheter out. Physical therapy was consulted yesterday and today she did participate with physical therapy. Dr. Mora was consulted from Orthopedic surgery. N o surgical intervention was suggested and Dr. Herrera from Cardiology was consulted. No further inter vention was suggested for ventricular tachycardia problem. The patient has a history of ventricular tachycardia even while she was in [place] and she had seen manager flight. Overall, her other medical p roblems remained stable. She has some anemia. We will continue to monitor that. Iron supplement wa s started. She has constipation problem. So far she has not responded to Senokot-S and Milk of magn esia today Dulcolax rectal suppository was ordered. Rehab was consulted and today she was accepted f rom rehab and I will continue to follow up on rehab floor. The patient was transferred to rehab with all current medications. Final Diagnoses: 1.Right patella fracture. 2.Hemarthrosis, right knee. 3.Right shoulder fracture. 4.Constipation. 5.Urinary tract infection. 6.Anemia. 7.Ventricular tachycardia, paroxysmal. 8.Hypertension. 9.Chronic obstructive pulmonary disease. 10.Fracture, left foot second toe. 11.Thyroid nodule. GIA/MODL Voice ID: [id number] Report ID: [id number]
--- NOTE | 2018-07-16 00:12 | PN ---
Date of Progress Note: 07/14/2018 The patient was seen by Dr. Herrera on 07/13/2017. She had come in with a humerus fracture and a left toe fracture. Had one episode of nonsustained ventricular tachycardia. Dr. Herrera ordered a 2D ech ocardiogram which was done later. Her echocardiogram is normal. No further nonsustained ventricular tachycardia for now. She is cleared for surgery when and if needed. We will be available for [employer]. Otherwise, we will sign off. PAUL/KAREEM Voice ID: [id number] Report ID: [id number]
== END 2018-07-14 17:49 | DRG 563 ==
LOC: ER 14:53 → ERHOLD 22:25 → 2ND 22:44
PROVIDERS: ADMIT Internal Medicine; ATTEND Internal Medicine
PROC: 0PSCXZZ Reposition Right Humeral Head, External Approach (ICD-10-PCS; principal; 2018-07-10)
PROC: 2W3LXYZ Immobilization of Right Lower Extremity using Other Device (ICD-10-PCS; 2018-07-10)
DX: S42.221A 2-part displaced fracture of surgical neck of right humerus, initial encounter for closed fracture (principal); S72.424A Nondisplaced fracture of lateral condyle of right femur, initial encounter for closed fracture; S82.001A Unspecified fracture of right patella, initial encounter for closed fracture; I47.2 Ventricular tachycardia; Z96.651 Presence of right artificial knee joint; I10 Essential (primary) hypertension; N30.90 Cystitis, unspecified without hematuria; J44.9 Chronic obstructive pulmonary disease, unspecified; E83.42 Hypomagnesemia; W01.0XXA Fall on same level from slipping, tripping and stumbling without subsequent striking against object, initial encounter; Y93.K1 Activity, walking an animal; Z96.642 Presence of left artificial hip joint; Z88.6 Allergy status to analgesic agent; Z88.5 Allergy status to narcotic agent; Z88.0 Allergy status to penicillin; K59.00 Constipation, unspecified; E04.1 Nontoxic single thyroid nodule; Y92.096 Garden or yard of other non-institutional residence as the place of occurrence of the external cause; K21.9 Gastro-esophageal reflux disease without esophagitis; Z87.891 Personal history of nicotine dependence; N18.3 Chronic kidney disease, stage 3 (moderate); I12.9 Hypertensive chronic kidney disease with stage 1 through stage 4 chronic kidney disease, or unspecified chronic kidney disease; M47.812 Spondylosis without myelopathy or radiculopathy, cervical region; M48.02 Spinal stenosis, cervical region; D64.9 Anemia, unspecified
CPT/HCPCS: 36415; 51702; 70450; 70553; 71045; 72125; 72141; 72170; 72192; 73700; 76536; 80048; 80076; 81003; 81015; 82306; 82550; 82553; 82607; 82746; 83036; 83735; 83880; 84443; 84484; 85025; 85610; 85730; 86850; 86900; 86901; 87077; 87086; 87088; 87186; 93306; 94640; 97163; 99285; J0696; J1170; J1650; J2175; J2250; J2405; J3010; J3475; J7030

== ENCOUNTER 2018-07-14 12:26 | Inpatient (IN) | payer OTHER, MEDICARE ==
--- NOTE | 2018-07-14 16:17 | R.PREADM ---
SCREENING DATE AND TIME 07/14/2018 13:17 (CDT) ANTICIPATED REHAB ADMISSION DATE 07/16/2018 REFERRING FACILITY [facility] REFERRAL DATE AND TIME 07/14/2018 13:17 (CDT) REFERRAL ROOM# [id number] ACUTE ADMIT DATE 07/10/2018 Previous Rehabilitation(s): No. REFERRING PHYSICIAN Sha Sanders REHAB FACILITY [facility] CLINICAL LIAISON Anju Rubalcava PHYSICIAN REVIEWER Dr. Anthony Ybarra M.D. MR# [id number] NAME MARS DAVIDSON ADDRESS [address] [place], [place] [id number] [address] [facility] PHONE [facility] [id number] DATE OF 1930 AGE 88 N# [id number] GENDER female MARITAL STATUS RACE white ADMIT FROM 02 - [facility] PRE-HOSPITAL LIVING SETTING 01 - Home (private home/apt. board/care, assisted living, alf, transitional living) HOME TYPE AND DETAILS Type of home: apartment # of levels in the residence: 1 # of steps within the residence: 0 # of steps to enter the residence: 0 PRE-HOSPITAL LIVING WITH Alone FAMILY SUPPORT Yes PRIMARY FAMILY CONTACT NAME Tootie Davidson PRIMARY FAMILY CONTACT PHONE PRIMARY FAMILY CONTACT RELATIONSHIP Daughter PHONE PRIMARY FAMILY CONTACT ON ADM.? no IS PRIMARY FAMILY CONTACT AUTH. REP.? no 1ST EMERGENCY CONTACT Tootie Davidson 1ST CONTACT PHONE 1ST CONTACT RELATIONSHIP Daughter PHONE 1ST CONTACT ON ADM. no IS 1ST CONTACT AUTH. REP.? no PHONE 2ND CONTACT ON ADM.? no PATIENT EMPLOYMENT STATUS Retired (for age) PATIENT EMPLOYER No Employer PAYOR INFORMATION: 1ST PAYOR NAME MEDICARE 1ST PAYOR PHONE [phone] 1ST PAYOR INJURY/ILLNESS DUE TO ACCIDENT? No ANOTHER GREEN PARTY RESPONSIBLE? No PRIMARY REHAB/ACUTE DIAGNOSIS: Right Patella Fracture Right Shoulder Avulsion Fracture Left !st Proximal Phalanx Fracture ONSET DATE 07/10/2018 REHAB IMPAIRMENT CATEGORY (CYNTHIA): 09 Orthopaedic (Ortho) does NOT meet 60% rule AFFECTED EXTREMITIES: RLE, and RUE PRIMARY DIAGNOSIS-RELATED SURGERIES: Right Shoulder Closed Reduction and Patella/Lat Femoral Epicondyle Fracture COMORBID REHAB/ACUTE DIAGNOSES: - N/A Chronic Kidney Disease Stage 3 COPD Hypertension GERD Cervical Spondylosis Cervical Spinal Stenosis Thyroid Nodule INTERVENTIONS: - COPD 02 sats Medications Nebulizers Oxygen Resp. therapy X-rays - Hypertension Fluid management Medications VS - GERD Altered diet Elevation of head of bed Medications Nausea/vomiting Nighttime food/fluid restrictions Nutrition RISK FOR COMPLICATIONS: - COPD Acute Resp failure Pneumonia Resp. Arrest - Hypertension CVA Hypotension MD TIA - GERD Alteration in sleep Aspiration Dehydration Malnutrition Pain SUMMARY OF ACUTE HOSPITALIZATION: Pt. is a 88 yo Right-handed white female. On 07/10/2018 she was admitted to [facility] with diagnosis Right Patella Fract ure. Her impairment category is Orthopaedic Disorders 08 - Other Orthopaedic (08.9). Pre-morbidly, Pt. was independent/mod-I in Social Cognition, Communication, Sphincter Control, Locomo tion, Self-Care, and Transfers Control; and she had good Sphincter Control. Currently, she has deficits of Locomotion, Self-Care, Transfers Control, Safety Awareness, Balance, a nd Endurance. Pt. is now referred to [facility] for acute in-patient rehabilitation in order to maximize patient's functional independence in activities of daily living, strength, ROM, and mobi lity. Patient has realistic goal of being discharged at assistance level 6-Betsy to reside at Home with Fam sukumar/Relatives. PAST MEDICAL HISTORY COPD Cervical Spinal Stenosis Cervical Spondylosis Chronic Kidney Disease Stage 3 GERD Hypertension Thyroid Nodule PAST SURGICAL HISTORY: Left Hip surgery Right knee replacement Hysterectomy MEDICATION ALLERGIES: Ibuprofen Codeine Penicillin ENVIRONMENTAL ALLERGIES: None Known - Substance Allergies None Known - Other Allergies None Known CODE STATUS: Full code WEIGHT/HEIGHT/BMI: WEIGHT 192 lbs HEIGHT 5' 6" BMI 31 DIET: - Diet Type Regular - Diet - Solid Texture Regular - Diet - Liquid Texture Regular - Tube Feed N/A REVIEW OF SYSTEMS: - Gen Alert and awake Lying in bed No apparent distress Oriented to: person, time, and place - Vital Signs Temperature: 98.3 F SBP/DBP: 112/58 Pulse: 81 Resp: 17 Vital signs stable, afebrile - CVS RRR VITAL SIGNS Temperature: 98.3 F SBP/DBP: 112/58 Pulse: 81 Resp: 17 Vital signs stable, afebrile CURRENT SPHINCTER CONTROL: Pre-hospital bladder status: continent # of bladder accidents in the last 7 days prior to screenin Pre-hospital bowel status: continent # of bowel accidents in the last 7 days prior to screenin Last Bowel Movement Date: DETAILED CURRENT FUNCTIONAL STATUS: - Bladder accident frequency: Ind - No accidents in the past 7 days - Bowel accident frequency: Ind - No accidents in the past 7 days - Walking score based on distance walked: 0(N/A) - Wheelchair score based on distance traveled: 0(N/A) FUNCTIONAL STATUS: - Self-Care A. Eating Ind Mary B. Grooming Ind Mary C. Bathing Ind Dep D. Dressing - Upper Ind Dep E. Dressing - Lower Ind Dep F. Toileting Ind modA - Sphincter Control G: Bladder control Ind Dep H: Bowel control Ind Ind - Transfers Control I. Bed/Chair/Wheelchair Ind modA J. Toilet Ind modA K. Tub/Shower Ind ADNO - Locomotion L. Walk/Wheelchair (B) Ind modA M. Stairs Ind ADNO - Communication N. Comprehension (B) Ind Ind O. Expression (B) Ind Ind - Social Cognition P. Social Interaction Ind Ind Q. Problem Solving Ind Ind R. Memory Ind Ind - Endurance Fair - Balance Fair - Safety Awareness Fair CURRENT FUNC. DEFICITS: Locomotion, Self-Care, Transfers Control, Safety Awareness, Balance, and Endurance THERAPY NOTES FROM ACUTE CARE: Attached. SPECIAL NEEDS: - Safety Concerns Skin breakdown precautions needed due to skin breakdown risk PRECAUTIONS: - Weight Bearing Precaution NWB right UE WBAT right LE PATIENT NEEDS ACTIVE AND ONGOING THERAPEUTIC INTERVENTION OF MULTIPLE THERAPY DISCIPLINES, INCLUDING: - Occupational Therapy Evaluate and Treat. - Physical Therapy Evaluate and Treat. PATIENT NEEDS CLOSE MEDICAL SUPERVISION BY A REHABILITATION PHYSICIAN FOR: Bowel and Bladder Management Coordination of Treatment Team Medical and Co-Morbidity Management Pain Management DVT Management PATIENT REQUIRES 24X7 REHAB NURSING FOR MEDICAL AND FUNCTIONAL MGT. OF THE FOLLOWING DEFICITS: ADL's Ambulation Bowel and Bladder Management Communication Disease Management Medication Management Patient/Family Education Providing Safe Environment Transfers Pain Management PATIENT REQUIRES INTENSIVE, COORDINATED INTERDISCIPLINARY APPROACH TO REHAB: Arranging Home Equipment/Services Discharge Planning Family Intervention/Training Hostel Manager/Case Management PATIENT REHAB POTENTIAL: Expected level of measurable improvement will be of a practical value to patient's functional capacit y or adaptations to impairments Has a viable Discharge Plan Medically appropriate; condition is sufficiently stable to participate in intensive rehab program Patient is able and expected to receive 3 hours of individualized therapy daily on at least 5 of ever y 7 days Patient's prognosis for significant practical improvement within a reasonable period of time appears Good DISCHARGE PLAN: - Estimated Length of Stay (days) 12. - Consensus on plan Discharge plan has been discussed with primary caregiver. Patient/Family is in agreement with the benjamin n. Primary caregiver is in agreement with the plan. - Patient/Family Goals Return home with assistance. - Planned Living Setting Upon Discharge Home, to live with Family/Relatives. RECOMMENDED CARE LEVEL: IRF RECOMMENDATION DETAILS: Recommended Admission to Comprehensive Rehabilitation Program to Increase Functional [place] SCREENER'S COMPLETENESS CONFIRMATION: - Screening Confirmation The patient data collection on this preadmission screening form is finished PHYSICIANS REVIEW AND ADMISSION DETERMINATION Admit - Based on my review of the Pre-Admission Screening results, in my medical judgment and experie nce, I concur with the findings and recommend admission to [facility], as this patient requires an IRF level of care. SIGNATURE PANEL: Clinical Liaison - [electronically] signed by Anju Rubalcava on 07/14/2018 at 13:54 (CDT) Physician Reviewer - [electronically] signed by Dr. Anthony Ybarra M.D. on 07/14/2018 at 16:15 (CDT )
[2018-07-14] MEDS ORDERED: ACETAMINOPHEN 500 MG TAB PO PRN (18:19)
[2018-07-14] MEDS: HYDROCODONE/APAP 7.5/325 MG TAB PO SCH (18:35)
[2018-07-14] MEDS: PANTOPRAZOLE 40MG TABLET PO SCH (19:00)
[2018-07-14] MEDS: ALBUTEROL SULFATE IH SCH (20:00)
[2018-07-14] MEDS: DOCUSATE NA/SENNA CONC 1 TAB PO SCH (21:23)
[2018-07-14] MEDS: DIPHENHYDRAMINE 25 MG TAB/CAP PO PRN (21:24)
[2018-07-14 22:04] LABS: Urine Appearance CLEAR; Urine Bilirubin NEGATIVE (NEG); Urine Blood NEGATIVE (NEG); Urine Color YELLOW; Urine Glucose NEGATIVE (NEG); Urine Protein NEGATIVE (NEG); Urine Urobilinogen 0.2 mg/dL (0.2-1.0)
[2018-07-14 23:39] LABS: Urine Bacteria <20 /HPF (<20); Urine Culture Reflex Order NOT NEEDED; Urine RBC <5 /HPF (NONE SEEN)
[2018-07-15] MEDS: HYDROCODONE/APAP 7.5/325 MG TAB PO SCH ×4 (00:39→19:09)
--- NOTE | 2018-07-15 03:21 | FAST ---
SHIFT START DATE/TIME: 07/14/2018 19:00 (CDT) SHIFT END DATE/TIME: 07/15/2018 07:00 (CDT) NAME MARS AUGUSTIN DATE OF : 1930 DATE OF ADMISSION: 07/14/2018 17:52 (CDT) PHONE: AGE: 88 [facility]# [id number] GENDER: Female ENCOUNTER PHYSICIAN: Dr. Anthony Ybarra M.D. ADMISSION DIAGNOSIS: - Orthopaedic Disorders 08 - Other Orthopaedic (08.9) Right Patella Fracture. Right Shoulder Avulsion Fracture. Left !st Proximal Phalanx Fracture. EATING: EATING - STEP 1: Does the patient require assistance when eating? Yes. EATING - STEP 2: Does the patient require the assistance of a helper? Yes. EATING - STEP 3: Does the patient perform half or more of the eating tasks? Yes. EATING - STEP 4: Does the patient need only supervision, cuing, coaxing OR help to apply an orthosis OR help to cut fo od, open containers, pour liquids, or butter bread? Yes. EATING - SCORE: 5-SUP GROOMING: Activity did not occur on this shift GROOMING - SCORE: 0-UNK BATHING: Activity did not occur on this shift BATHING - SCORE: 0-UNK DRESSING - UPPER BODY: Patient is not dressing in public clothing ARTICLES SCORE Total number of steps: 0 DRESSING - UPPER BODY - SCORE: 0-UNK DRESSING - LOWER BODY: Patient is not dressing in public clothing ARTICLES SCORE Total number of steps: 0 DRESSING - LOWER BODY - SCORE: 0-UNK TOILETING: TOILETING - STEP 1: Does the patient require assistance with toileting? Yes. TOILETING - STEP 2: Does the patient require the assistance of a helper? Yes. TOILETING - STEP 3: How much assistance does the patient require from the helper? Hands-on assistance from the helper TOILETING - STEP 4: Of the 3 tasks: 1) Adjusting clothing prior to use, 2) Cleansing of perineal area, 3) Adjusting clot neda after use; How many tasks does the patient perform WITHOUT assistance of the helper? No tasks; h elper performs all three tasks TOILETING - SCORE: 1-DEP BLADDER MANAGEMENT: [place] cares for modi catheter including emptying drainage bag. BLADDER MANAGEMENT - SCORE: 1-DEP BOWEL MANAGEMENT: Patient depends entirely on [place] when using bedpan [helper rolls patient onto side / side-lying pos ition; positions bedpan; assists patient to roll onto bedpan; holds bedpan in place; assists patient off bedpan]. BOWEL MANAGEMENT - SCORE: 1-DEP BOWEL MANAGEMENT - FREQUENCY OF ACCIDENTS: BOWEL MANAGEMENT(FA) - STEP 1: How many accidents has the patient had during the current shift? 0 TRANSFERS: BED, CHAIR, WHEELCHAIR: Activity did not occur on this shift TRANSFERS: BED, CHAIR, WHEELCHAIR - SCORE: 0-UNK TRANSFERS: TOILET: Activity did not occur on this shift TRANSFERS: TOILET - SCORE: 0-UNK TRANSFERS: SHOWER: Activity did not occur on this shift TRANSFERS: SHOWER - SCORE: 0-UNK TRANSFERS: TUB: Activity did not occur on this shift TRANSFERS: TUB - SCORE: 0-UNK LOCOMOTION: WALK: Activity did not occur on this shift LOCOMOTION: WALK - SCORE: 0-UNK LOCOMOTION: WHEELCHAIR: Activity did not occur on this shift LOCOMOTION: WHEELCHAIR - SCORE: 0-UNK COMPREHENSION: COMPREHENSION: TYPE: Both COMPREHENSION - STEP 1: Does the patient require help to understand complex and abstract ideas (such as current events, finan ny, discharge planning, medical issues, relationships, etc)? No. COMPREHENSION - STEP 2: Does the patient need extra time, require an assistive device (such as glasses, hearing aids, or an a ugmentative communication system), OR does s/he have mild difficulty expressing complex and abstract ideas (including mild dysarthria or mild word-finding problems)? Yes. COMPREHENSION - SCORE: 6-LETI EXPRESSION EXPRESSION: TYPE: Both EXPRESSION - STEP 1: Does the patient require help expressing complex and abstract ideas (such as current events, finances , discharge planning, medical issues, relationships, etc)? No. EXPRESSION - STEP 2: Does the patient need extra time, require an assistive device (such as augmentive communication syste m or a communication board), OR does s/he have mild difficulty expressing complex and abstract ideas (including mild dysarthria or mild word-find problems)? No. EXPRESSION - SCORE: 7-IND SOCIAL INTERACTION: SOCIAL INTERACTION - STEP 1: Does the patient require a helper to interact with others in social and therapeutic situations? No. SOCIAL INTERACTION - STEP 2: Does the patient need extra time in social situations, OR does s/he interact with staff, other patien ts, and family members ONLY in structured environments, OR does s/he require medication for social in teraction? No. SOCIAL INTERACTION - SCORE: 7-IND PROBLEM SOLVING: PROBLEM SOLVING - STEP 1: Does the patient need help to solve complex problems such as managing a checking account or confronti ng interpersonal problems? No. PROBLEM SOLVING - STEP 2: Does the patient require extra time to make decisions or solve problems, OR does s/he have slight dif ficulty reading, initiating, or self-correcting in unfamiliar situations? No. PROBLEM SOLVING - SCORE: 7-IND MEMORY: MEMORY - STEP 1: Does the patient need help to remember frequently encountered people, daily routines, and executing r equests? No. MEMORY - STEP 2: Does the patient have slight difficulty recognizing frequently encountered people, daily routines, or executing requests without the need for repetition or using self-initiated or environmental cues to remember? No. MEMORY - SCORE: 7-IND SIGNATURE PANEL: The following modified sections: Eating - Score, Grooming - Score, Bathing - Score, Dressing - Upper Body - Score, Dressing - Lower Body - Score, Toileting - Score, Bladder Management - Score, Bowel Man agement - Score, Transfers: Bed, Chair, Wheelchair - Score, Transfers: Toilet - Score, Transfers: Nette wer - Score, Transfers: Tub - Score, Locomotion: Walk - Score, Locomotion: Wheelchair - Score, Compre hension - Score, Expression - Score, Social Interaction - Score, Problem Solving - Score, Memory - Sc ore were [electronically] signed by Nissa Srivastava [email or web address] on FriJul 15 2018 03:04:20 T-0500 ( Central Daylight Time)
[2018-07-15 06:50] LABS: Albumin 2.3 g/dL (3.4-5.0); Potassium 3.7 mmol/L (3.5-5.1); Prealbumin 11.2 mg/dL (20-40)
[2018-07-15 06:59] LABS: Absolute Lymphocytes (CBC) 1.1 K/uL (0.7-4.9); Absolute Monocytes 0.3 K/uL (0.1-1.3); Absolute Neutrophil 2.8 K/uL (1.8-8.0); Basophils % 0.7 % (0-1.3); Eosinophils % 4.6 % (0-4.4); Hematocrit 24.4 % (36.0-45.0); Lymphocytes % 23.6 % (15.3-44.8); MCH 29.4 pg (27.0-35.0); MCV 87.9 fL (80-100); MPV 8.8 fL (7.6-11.3); Monocytes % 7.8 % (3.3-12.3); RBC Red Blood Cell Count 2.77 M/uL (3.86-4.86)
[2018-07-15] MEDS: GABAPENTIN 300 MG CAP PO SCH ×2 (07:54→20:05)
[2018-07-15] MEDS: ASPIRIN EC 81 MG TAB PO SCH (07:54)
[2018-07-15] MEDS: FUROSEMIDE 20 MG TABLET PO SCH (07:55)
[2018-07-15] MEDS: PANTOPRAZOLE 40MG TABLET PO SCH (07:55)
[2018-07-15] MEDS: ALBUTEROL SULFATE IH SCH ×2 (07:55→20:00)
[2018-07-15] MEDS: LOSARTAN POTASSIUM 50 MG TABLET PO SCH (07:56)
[2018-07-15] MEDS: METOPROLOL XL 50 MG TAB PO SCH (07:56)
[2018-07-15] MEDS: ENOXAPARIN 40 MG/0.4 ML SQ SCH (07:57)
[2018-07-15] MEDS: Anoro Ellipta 1 PUFF IH SCH (08:00)
[2018-07-15] MEDS: TRAMADOL HCL 50 MG TAB PO PRN (09:06)
[2018-07-15] MEDS ORDERED: HYDROCORTISONE 1 % CREAM 30GM TOP PRN (09:12)
--- NOTE | 2018-07-15 09:48 | P.PN ---
Subjective Date of Service: 07/15/18 Chief Complaint: s/p closed reduction R glenohumeral joint, R distal femur fx Subjective: Improving, Working w/ PT pain controlled Physical Examination - Vital Signs Temperature: 96.8 F Blood Pressure: 116/56 Pulse: 75 Respirations: 20 Pulse Ox (%): 92 - Physical Exam General: Alert, In no apparent distress Musculoskeletal: Other (RUE: no pain with IR/ER of the right shoulder; NVI distally; RLE: mild swelling of knee with ecchymoses; NVI distally) - Studies Laboratory Data (last 24 hrs) 07/15/18 06:13: Sodium 140, Potassium 3.7, BUN 16, Creatinine 1.10, Glucose 101 , Magnesium 2.0 07/15/18 06:13: WBC 4.5, Hgb 8.1 L, Hct 24.4 L, Plt Count 174 D Assessment And Plan - Plan Loretta is an 88 yo female s/p right shoulder glenohumeral dislocation with reduction with a right lateral femoral condyle fracture and left great toe fracture -continue PT; NWB RUE in shoulder sling, WBAT RLE in knee immobilizer, WBAT LLE in hard sole shoe -lovenox for DVT prophylaxis
--- NOTE | 2018-07-15 16:02 | FAST ---
ENCOUNTER DATE AND TIME: 07/15/2018 08:00 (CDT) NAME MARS AUGUSTIN DATE OF : 1930 DATE OF ADMISSION: 07/14/2018 17:52 (CDT) PHONE: AGE: 88 N# [id number] GENDER: Female ENCOUNTER PHYSICIAN: Dr. Anthony Ybarra M.D. ADMISSION DIAGNOSIS: - Orthopaedic Disorders 08 - Other Orthopaedic (08.9) Right Patella Fracture. Right Shoulder Avulsion Fracture. Left !st Proximal Phalanx Fracture. EATING: Activity did not occur on this shift EATING - SCORE: 0-UNK GROOMING: Activity did not occur on this shift GROOMING - SCORE: 0-UNK BATHING: Activity did not occur on this shift BATHING - SCORE: 0-UNK DRESSING - UPPER BODY: Activity did not occur on this shift Patient is not dressing in public clothing ARTICLES SCORE Total number of steps: 0 DRESSING - UPPER BODY - SCORE: 0-UNK DRESSING - LOWER BODY: Activity did not occur on this shift Patient is not dressing in public clothing ARTICLES SCORE Total number of steps: 0 DRESSING - LOWER BODY - SCORE: 0-UNK TOILETING: Activity did not occur on this shift TOILETING - SCORE: 0-UNK BLADDER MANAGEMENT: Activity did not occur on this shift BLADDER MANAGEMENT - SCORE: 7-IND BOWEL MANAGEMENT: Activity did not occur on this shift BOWEL MANAGEMENT - SCORE: 7-IND TRANSFERS: BED, CHAIR, WHEELCHAIR: TRANSFERS: BED, CHAIR, WHEELCHAIR - STEP 1: Does the patient require assistance with bed, chair, or wheelchair transfers? Yes. TRANSFERS: BED, CHAIR, WHEELCHAIR - STEP 2: Does the patient require the assistance of a helper? Yes. TRANSFERS: BED, CHAIR, WHEELCHAIR - STEP 3: How much assistance does the patient require from the helper? Lifting of the patient TRANSFERS: BED, CHAIR, WHEELCHAIR - STEP 4: Does the helper lift the patient ONLY up? ONLY down? Up AND Down? Up AND Down. TRANSFERS: BED, CHAIR, WHEELCHAIR - SCORE: 2-MAX TRANSFERS: TOILET: Activity did not occur on this shift TRANSFERS: TOILET - SCORE: 0-UNK TRANSFERS: SHOWER: Activity did not occur on this shift TRANSFERS: SHOWER - SCORE: 0-UNK TRANSFERS: TUB: Activity did not occur on this shift TRANSFERS: TUB - SCORE: 0-UNK LOCOMOTION: WALK: Patient walks less than 50 feet LOCOMOTION: WALK - SCORE: 1-DEP LOCOMOTION: WHEELCHAIR: LOCOMOTION: WHEELCHAIR - STEP 1: Does the patient need help to go 150 feet in a wheelchair? Yes. LOCOMOTION: WHEELCHAIR - STEP 2: How much assistance does the patient need from the helper? Patient goes less than 150 feet - but more than 50 feet - with the assistance of only one helper LOCOMOTION: WHEELCHAIR - SCORE: 2-MAX LOCOMOTION: STAIRS: Activity did not occur on this shift LOCOMOTION: STAIRS - SCORE: 0-UNK COMPREHENSION: COMPREHENSION: TYPE: Both COMPREHENSION - STEP 1: Does the patient require help to understand complex and abstract ideas (such as current events, finan ny, discharge planning, medical issues, relationships, etc)? No. COMPREHENSION - STEP 2: Does the patient need extra time, require an assistive device (such as glasses, hearing aids, or an a ugmentative communication system), OR does s/he have mild difficulty expressing complex and abstract ideas (including mild dysarthria or mild word-finding problems)? Yes. COMPREHENSION - SCORE: 6-LETI EXPRESSION EXPRESSION: TYPE: Both EXPRESSION - STEP 1: Does the patient require help expressing complex and abstract ideas (such as current events, finances , discharge planning, medical issues, relationships, etc)? No. EXPRESSION - STEP 2: Does the patient need extra time, require an assistive device (such as augmentive communication syste m or a communication board), OR does s/he have mild difficulty expressing complex and abstract ideas (including mild dysarthria or mild word-find problems)? No. EXPRESSION - SCORE: 7-IND SOCIAL INTERACTION: SOCIAL INTERACTION - SCORE: 0-UNK PROBLEM SOLVING: PROBLEM SOLVING - SCORE: 0-UNK MEMORY: MEMORY - SCORE: 0-UNK SIGNATURE PANEL: The following modified sections: Transfers: Bed, Chair, Wheelchair - Score, Transfers: Toilet - Score , Locomotion: Walk - Score, Locomotion: Wheelchair - Score, Locomotion: Stairs - Score, Comprehension - Score, Expression - Score were [electronically] signed by Scott Moore PT on FriJul 15 2018 16:01:42 GMT-0500 (Central Daylight Time)
--- NOTE | 2018-07-15 16:07 | R.HP ---
FACILITY: [facility] ENCOUNTER DATE AND TIME: 07/15/2018 16:01 (CDT) MR#: [id number] NAME MARS AUGUSTIN AD[address]ESS: [address] CITY: [place] STATE: [place] [address]IP [id number] PHONE: DATE OF : 1930 AGE: 88 SSN# [id number] GENDER: Female DEXTERITY Right-handed MARITAL STATUS RACE White PRE-HOSPITAL LIVING SETTING 01 - Home (private home/apt. board/care, assisted living, detention, transitional living) PRE-HOSPITAL LIVING WITH Alone ENCOUNTER PHYSICIAN: Dr. Anthony Ybarra M.D. REFERRING DOCTOR: teresa Sanders DATE OF ADMISSION: 07/14/2018 17:52 (CDT) REFERRING FACILITY [facility] HOME TYPE AND DETAILS: Type of home: apartment # of levels in the residence: 1 # of steps within the residence: 0 # of steps to enter the residence: 0 ADMISSION DIAGNOSIS: Right Patella Fracture Right Shoulder Avulsion Fracture Left 1st Proximal Phalanx Fracture ONSET DATE: 07/10/2018 PRIMARY DIAGNOSIS-RELATED SURGERIES: Right Shoulder Closed Reduction and Patella/Lat Femoral Epicondyle Fracture SECONDARY/COMORBID DIAGNOSES (TIERED): - N/A Chronic Kidney Disease Stage 3 COPD Hypertension GERD Cervical Spondylosis Cervical Spinal Stenosis Thyroid Nodule HISTORY OF PRESENT ILLNESS (HPI): Pt. is a 88 yo Right-handed white female. On 07/10/2018 she was admitted to [facility] with diagnosis Right Patella Fract ure. Her impairment category is Orthopaedic Disorders 08 - Other Orthopaedic (08.9). Pre-morbidly, Pt. was independent/mod-I in Social Cognition, Communication, Sphincter Control, Locomo tion, Self-Care, and Transfers Control; and she had good Sphincter Control. Currently, she has deficits of Locomotion, Self-Care, Transfers Control, Safety Awareness, Balance, a nd Endurance. Pt. is now referred to [facility] for acute in-patient rehabilitation in order to maximize patient's functional independence in activities of daily living, strength, ROM, and mobi lity. Patient has realistic goal of being discharged at assistance level 6-Betsy to reside at Home with Fam sukumar/Relatives. MEDICATION ALLERGIES: Ibuprofen Codeine Penicillin ENVIRONMENTAL ALLERGIES: None Known - Substance Allergies None Known - Other Allergies None Known PAST MEDICAL HISTORY: COPD Cervical Spinal Stenosis Cervical Spondylosis Chronic Kidney Disease Stage 3 GERD Hypertension Thyroid Nodule PAST SURGICAL HISTORY: Left Hip surgery Right knee replacement Hysterectomy FAMILY HISTORY: Family history is not contributory. SOCIAL HISTORY: - Home Living Alone REVIEW OF SYSTEMS: - Gen No Chills No Fatigue No Fever - Eyes No Double Vision No itchiness - ENMT No Difficulty Swallowing - CVS No Chest Discomfort No Chest Pain No Fatigue No Weight Gain - Resp No Cough No Shortness of Breath - GI Continent No Abdominal Pain No Constipation No Diarrhea - Continent No Kidney Pain No Painful Urination No Urinary Urgency - MSK Joint Pain Muscle Cramps No Stiffness - Skin No Itching No Rash No Suspicious Lesions - Neuro Coordination Difficulty No Difficulty with Concentration No Memory Loss No Seizures Weakness - Psych No Anxiety No Depression No HIV Exposure No Persistent Infections No Seasonal Allergies - Endo No Cold/Heat Intolerance No Excessive Hunger No Excessive Thirst No Excessive Urination PHYSICAL EXAM - Gen Alert and awake Lying in bed No apparent distress Oriented to: person, time, and place - Skin No skin breakdown. Normacephalic - Eyes No abnormalities - ENMT No abnormalities - Neck No abnormalities - CVS RRR - Chest Clear - Abd Soft - GI nondistended Deferred - No abnormalities - Ext No significant edema - MSK 4+/5 weakness in right lower extremity - Neuro 4/5 strength right upper and lower extremities. - Psych No abnormalities VITAL SIGNS Temperature: 98.3 F SBP/DBP: 112/58 Pulse: 81 Resp: 17 NURSING: - Shower allowing shower - Skin care per protocol PRECAUTIONS: - Weight Bearing Precaution NWB right UE WBAT right LE ACTIVITIES OOB only with supervision FUNCTIONAL STATUS: - Self-Care A. Eating Ind Mary B. Grooming Ind Mary C. Bathing Ind Dep D. Dressing - Upper Ind Dep E. Dressing - Lower Ind Dep F. Toileting Ind modA - Sphincter Control G: Bladder control Ind Dep H: Bowel control Ind Ind - Transfers Control I. Bed/Chair/Wheelchair Ind modA J. Toilet Ind modA K. Tub/Shower Ind ADNO - Locomotion L. Walk/Wheelchair (B) Ind modA M. Stairs Ind ADNO - Communication N. Comprehension (B) Ind Ind O. Expression (B) Ind Ind - Social Cognition P. Social Interaction Ind Ind Q. Problem Solving Ind Ind R. Memory Ind Ind - Endurance Fair - Balance Fair - Safety Awareness Fair CURRENT FUNC. DEFICITS: Locomotion, Self-Care, Transfers Control, Safety Awareness, Balance, and Endurance ASSESSMENT: Pt. is a 88 yo Right-handed white female.On 07/10/2018 she was admitted to [facility] with diagnosis Right Patella Fracture.Her impairment category is Orthopaedic Disorders 08 - O ther Orthopaedic (08.9).Pre-morbidly, Pt. was independent/mod-I in Social Cognition, Communication, S phincter Control, Locomotion, Self-Care, and Transfers Control; and she had good Sphincter Control.Cu rrently, she has deficits of Locomotion, Self-Care, Transfers Control, Safety Awareness, Balance, and Endurance.Pt. is now referred to [facility] for acute in-patient rehabilitati on in order to maximize patient's functional independence in activities of daily living, strength, RO M, and mobility.- Rehab Goal Patient has realistic goal of being discharged at assistance level 6-Betsy to reside at Home with Fam sukumar/Relatives. REHAB PLAN: - Physical Therapy Weakness - to improve, our physical therapists will perform initial evaluation of pt's status upon a dmission and devise an individualized program for Aquatic Therapy, Neuromuscular Reeducation, and Str engthening Poor balance - to improve, our physical therapists will perform initial evaluation of pt's status up on admission and devise an individualized program for Balance Training Inability to transfer - to improve, our physical therapists will perform initial evaluation of pt's status upon admission and devise an individualized program for Bed mobility Decreased range of motion - to improve, our physical therapists will perform initial evaluation of p t's status upon admission and devise an individualized program for increasing patient's Range of Kuldeep on. Need in caregiver upon discharge - to improve, our physical therapists will perform initial evaluati on of pt's status upon admission and devise an individualized program for Caregiver Training Poor endurance - to improve, our physical therapists will perform initial evaluation of pt's status upon admission and devise an individualized program for Endurance Training Gait dysfunction - to improve, our physical therapists will perform initial evaluation of pt's statu s upon admission and devise an individualized program for Gait Training, and Wheel Chair mobility Need for home safety evaluation - to improve, our physical therapists will perform initial evaluatio n of pt's status upon admission and devise an individualized program for Home Evaluation New precaution - to improve, our physical therapists will perform initial evaluation of pt's status upon admission and devise an individualized program for Patient precaution education Edema - to improve, our physical therapists will perform initial evaluation of pt's status upon admi ssion and devise an individualized program for Elevation Training, and Lymphedema Therapy - Occupational Therapy Weakness - to improve, our occupation therapists will perform initial evaluation of pt's status upon admission and devise an individualized program for Aquatic Therapy, Balance, Endurance, UE ROM, and UE strengthening ADL deficits - to improve, our occupation therapists will perform initial evaluation of pt's status upon admission and devise an individualized program for Bathing, Bed mobility, Community Reintegratio n, Cooking, Dressing, Eating, Fine Motor Skills, Grooming, Homemaking, Kitchen Mobility, Laundry, Pat ient Education, Safety Awareness, Splinting - Positioning, Transfers(Toilet, Tub, Shower), and Wheel Chair Management Need for senior care provider - to improve, our occupation therapists will perform initial evaluation of pt's status upon admission and devise an individualized program for Caregiver Training - Balance for Weakness - Bed mobility for ADL deficits MEDICAL PLAN: - Diet Type Start Regular - Diet - Liquid Texture Start Regular - Tube Feed Start N/A - Weight Bearing Precaution NWB right UE WBAT right LE - Skin care per protocol - Diet - Solid Texture Regular - Shower shower DISCHARGE PLAN: - Estimated Length of Stay (days) 12. - Consensus on plan Discharge plan has been discussed with primary caregiver. Patient/Family is in agreement with the benjamin n. Primary caregiver is in agreement with the plan. - Patient/Family Goals Return home with assistance. - Planned Living Setting Upon Discharge Home, to live with Family/Relatives. SIGNATURE PANEL: (CDT)
--- NOTE | 2018-07-15 16:07 | PAPE ---
PATIENT: [facility] MR# [id number] REFERRING DOCTOR teresa Sanders EVALUATION DATE AND TIME 07/15/2018 16:06 (CDT) NAME MARS AUGUSTIN DATE OF 1930 AGE 88 PHONE N# [id number] GENDER female EVALUATING PHYSICIAN Dr. Anthony Ybarra M.D. ADMISSION DIAGNOSIS: Right Patella Fracture Right Shoulder Avulsion Fracture Left 1st Proximal Phalanx Fracture ONSET DATE 07/10/2018 SECONDARY/COMORBID DIAGNOSES TIERED: - N/A Chronic Kidney Disease Stage 3 COPD Hypertension GERD Cervical Spondylosis Cervical Spinal Stenosis Thyroid Nodule POST-ADMISSION FUNCTIONAL/MEDICAL STATUS: - Bladder Same accident frequency: Ind - No accidents in the past 7 days - Bowel Same accident frequency: Ind - No accidents in the past 7 days - Walking Same score based on distance walked: 0(N/A) - Wheelchair Same score based on distance traveled: 0(N/A) STATUS CHANGE EVALUATION: No change in Functional or Medical Status is identified compared with Pre-Admission screening. PATIENT NEEDS CLOSE MEDICAL SUPERVISION BY A REHABILITATION PHYSICIAN FOR: Bowel and Bladder Management Coordination of Treatment Team Medical and Co-Morbidity Management Pain Management DVT Management PATIENT REQUIRES 24X7 REHAB NURSING FOR MEDICAL AND FUNCTIONAL MGT. OF THE FOLLOWING DEFICITS: ADL's Ambulation Bowel and Bladder Management Communication Disease Management Medication Management Patient/Family Education Providing Safe Environment Transfers Pain Management PATIENT REQUIRES INTENSIVE, COORDINATED INTERDISCIPLINARY APPROACH TO REHAB: Arranging Home Equipment/Services Discharge Planning Family Intervention/Training Recycle Worker/Case Management LIST OF IDENTIFIED AND POTENTIAL PROBLEMS: Alteration in leisure activities Bladder, Incontinence Blood Pressure, Hypertension/hypotension Issues Bowel, Incontinence Infection, Actual or Potential Mobility Impaired Pain, Alteration in Comfort Self Care Deficit Skin Integrity, Actual or Potential Urinary Tract Infection (UTI), Actual or Potential RISK FOR COMPLICATIONS - COPD Acute Resp failure. Pneumonia. Resp. Arrest. - Hypertension CVA. Hypotension. RI. TIA. - GERD Alteration in sleep. Aspiration. Dehydration. Malnutrition. Pain. INTERVENTIONS - COPD 02 sats. Medications. Nebulizers. Oxygen. Resp. therapy. X-rays. - Hypertension - GERD Altered diet. Elevation of head of bed. Medications. Nausea/vomiting. Nighttime food/fluid restrictio ns. Nutrition. PATIENT COULD BE AT RISK FOR COMPLICATIONS FROM ADVERSE MEDICAL CONDITIONS DUE TO HIS/HER COMORBIDITI ES AND THE RIGORS OF THE INTENSIVE REHABILLITATION PROGRAM. METHODS OR INTERVENTIONS TO AVOID COMPLIC ATIONS INCLUDE: - Deep Vein Thrombosis (DVT) Prophylaxis therapy for prevention . Sequential Compression Device (SCD). TE D Hose. - Infection Clinical staff to assess and manage the signs and symptoms of infection including fever, redness, war mth, etc. - Urinary Tract Infection - Falls Patient will be evaluated for Fall Precautions and will be placed on Fall Precautions as indicated pe r protocol. - Skin Breakdown Nursing will assess skin daily using assessment tool and will place on Skin Breakdown Precautions as indicated per protocol. - Pain Clinical staff may employ non-medication methods such as massage, distraction, decrease stimulus, etc . as needed. Clinical staff will assess patient's pain level every shift per protocol to assess and e nsure pain management effectiveness. Medications will be given and the pain level re-assessed. PRELIMINARY PLAN OF CARE: - Physical Therapy Patient needs Physical Therapy for a daily minimum of 1.5 hours at least 5 out of 7 days, to improve: Mobility, Strengthening, Transfers, Stretching, ROM, Endurance, Ability to manage stairs, Gait, and Balance. - Rehabilitation Nursing Patient requires 24x7 Rehabilitation Nursing for: Pain Issues, Identifying and preventing risk factor s, Monitoring and reporting current medical conditions, Assisting with ambulation and transfer, Liz ting with all ADL-s, Teaching patients about disease process and medications, Family teaching, Provid ing safe environment, Bowel and Bladder Issues, Skin Integrity, and Medication Management. Patient needs Recycle Worker and/or Case Management for: Discharge Planning, Arranging Home Equipmen t or Services, and Family Interventions. - Dietary and Nutrition Services Patient needs Dietary and Nutrition Services for: Adequate Nutrition, Nutritional Supplements, and Nu tritional Education. - Occupational Therapy Patient needs Occupational Therapy for a daily minimum of 1.5 hours at least 5 out of 7 days, to impr ove Activities of Daily Living, including: Eating, Grooming, Bathing, Dressing, Toileting, Toilet Tra nsfers, Community Reintegration, Higher functional activities, Adaptive Equipment, Splinting, Househo ld Tasks, and Other activities as determined. POTENTIAL FUNCTIONAL GOALS FOR PATIENT TO ACHIEVE BY DISCHARGE: - Safety Precaution Patient will remain free from falls or injury at time of discharge. - Bed Mobility Patient will perform bed mobility at 4-Mary level of assistance. - Transfers Patient will complete transfers from bed to chair at 4-Mary level of assistance. - Mobility Patient will ambulate 150 ft with 4-Mary level of assistance with RW. PATIENT REHAB POTENTIAL Expected level of measurable improvement will be of a practical value to patient's functional capacit y or adaptations to impairments Has a viable Discharge Plan Medically appropriate; condition is sufficiently stable to participate in intensive rehab program Patient is able and expected to receive 3 hours of individualized therapy daily on at least 5 of ever y 7 days Patient's prognosis for significant practical improvement within a reasonable period of time appears Good DISCHARGE PLAN: - Estimated Length of Stay (days) 12. - Consensus on plan Discharge plan has been discussed with primary caregiver. Patient/Family is in agreement with the benjamin n. Primary caregiver is in agreement with the plan. - Patient/Family Goals Return home with assistance. - Planned Living Setting Upon Discharge Home, to live with Family/Relatives. CONCLUSION ON REHABILITATION NECESSITY: I have evaluated patient's pre-admission functional status and, comparing it to the patient's post-ad mission functional status now, I conclude that the pre-admission assessment was accurate. Patient's c ondition on admission supports the medical necessity of admission to [facility]. It is safe to proceed with patient's therapy program. SIGNATURE PANEL: (CDT)
--- NOTE | 2018-07-15 16:27 | FAST ---
ENCOUNTER DATE AND TIME: 07/15/2018 08:00 (CDT) NAME MARS AUGUSTIN DATE OF : 1930 DATE OF ADMISSION: 07/14/2018 17:52 (CDT) PHONE: AGE: 88 N# [id number] GENDER: Female ENCOUNTER PHYSICIAN: Dr. Anthony Ybarra M.D. ADMISSION DIAGNOSIS: - Orthopaedic Disorders 08 - Other Orthopaedic (08.9) Right Patella Fracture. Right Shoulder Avulsion Fracture. Left 1st Proximal Phalanx Fracture. EATING: Activity did not occur on this shift EATING - SCORE: 0-UNK GROOMING: Comb/brush hair Wash, rinse, and dry face GROOMING - STEP 1: Does the patient require assistance when grooming? Yes. GROOMING - STEP 2: Does the patient require the assistance of a helper? Yes. GROOMING - STEP 3: How much assistance does the patient require from the helper? Only prior equipment preparation/set up from the helper GROOMING - SCORE: 5-SUP BATHING: Abdomen Buttocks Chest Left arm Left lower leg and foot Left upper leg Perineal area BATHING - STEP 1: Does the patient require assistance when bathing? Yes. BATHING - STEP 2: Does the patient require the assistance of a helper? Yes. BATHING - STEP 3: How much assistance does the patient require from the helper? More than just incidental help BATHING - STEP 4: What percent of the body parts did the patient bathe WITHOUT the helper? None. All work was performed by the helper BATHING - SCORE: 1-DEP BATHING - COMMENTS: Required 2 helpers DRESSING - UPPER BODY: T-shirt/pullover shirt (four steps) ARTICLES SCORE Total number of steps: 4 DRESSING - UPPER BODY - STEP 1: Does the patient require help when dressing above the waist? Yes. DRESSING - UPPER BODY - STEP 2: Does the patient require the assistance of a helper? Yes. DRESSING - UPPER BODY - STEP 3: Does the helper touch the patient while dressing? Yes. DRESSING - UPPER BODY - STEP 4: How many of the total steps does the patient complete on his/her own? 1 DRESSING - UPPER BODY - STEP 5: Does Patient require total assistance for dressing above the waist such as the helper holding clothin g and performing basically all the activities? No. DRESSING - UPPER BODY - SCORE: 2-MAX DRESSING - LOWER BODY: Elastic waist pants (three steps) Sock - Left foot (one step) Tied or buckled shoe - Left foot (two steps) Underwear (three steps) ARTICLES SCORE Total number of steps: 9 DRESSING - LOWER BODY - STEP 1: Does the patient require help when dressing below the waist? Yes. DRESSING - LOWER BODY - STEP 2: Does the patient require the assistance of a helper? Yes. DRESSING - LOWER BODY - STEP 3: Does the helper touch the patient while dressing? Yes. DRESSING - LOWER BODY - STEP 4: How many of the total steps does the patient complete on his/her own? 2 DRESSING - LOWER BODY - STEP 5: Does patient require total assistance for dressing below the waist such as the helper holding clothin g and performing basically all the activities? Yes. DRESSING - LOWER BODY - SCORE: 1-DEP DRESSING - LOWER BODY - COMMENTS: Requires 2 person assist TOILETING: Activity did not occur on this shift TOILETING - SCORE: 0-UNK BLADDER MANAGEMENT: Activity did not occur on this shift BLADDER MANAGEMENT - SCORE: 7-IND BOWEL MANAGEMENT: Activity did not occur on this shift BOWEL MANAGEMENT - SCORE: 7-IND TRANSFERS: BED, CHAIR, WHEELCHAIR: Activity did not occur on this shift TRANSFERS: BED, CHAIR, WHEELCHAIR - SCORE: 0-UNK TRANSFERS: TOILET: Activity did not occur on this shift TRANSFERS: TOILET - SCORE: 0-UNK TRANSFERS: SHOWER: More than one helper is required for shower transfer TRANSFERS: SHOWER - SCORE: 1-DEP TRANSFERS: TUB: Activity did not occur on this shift TRANSFERS: TUB - SCORE: 0-UNK LOCOMOTION: WALK: Activity did not occur on this shift LOCOMOTION: WALK - SCORE: 0-UNK LOCOMOTION: WHEELCHAIR: Activity did not occur on this shift LOCOMOTION: WHEELCHAIR - SCORE: 0-UNK LOCOMOTION: STAIRS: Activity did not occur on this shift LOCOMOTION: STAIRS - SCORE: 0-UNK COMPREHENSION: COMPREHENSION: TYPE: Both COMPREHENSION - STEP 1: Does the patient require help to understand complex and abstract ideas (such as current events, finan ny, discharge planning, medical issues, relationships, etc)? No. COMPREHENSION - STEP 2: Does the patient need extra time, require an assistive device (such as glasses, hearing aids, or an a ugmentative communication system), OR does s/he have mild difficulty expressing complex and abstract ideas (including mild dysarthria or mild word-finding problems)? Yes. COMPREHENSION - SCORE: 6-LETI EXPRESSION EXPRESSION: TYPE: Both EXPRESSION - STEP 1: Does the patient require help expressing complex and abstract ideas (such as current events, finances , discharge planning, medical issues, relationships, etc)? No. EXPRESSION - STEP 2: Does the patient need extra time, require an assistive device (such as augmentive communication syste m or a communication board), OR does s/he have mild difficulty expressing complex and abstract ideas (including mild dysarthria or mild word-find problems)? Yes. EXPRESSION - SCORE: 6-LETI SOCIAL INTERACTION: SOCIAL INTERACTION - STEP 1: Does the patient require a helper to interact with others in social and therapeutic situations? No. SOCIAL INTERACTION - STEP 2: Does the patient need extra time in social situations, OR does s/he interact with staff, other patien ts, and family members ONLY in structured environments, OR does s/he require medication for social in teraction? No. SOCIAL INTERACTION - SCORE: 7-IND PROBLEM SOLVING: PROBLEM SOLVING - STEP 1: Does the patient need help to solve complex problems such as managing a checking account or confronti ng interpersonal problems? Yes. PROBLEM SOLVING - STEP 2: Does the patient solve basic routine problems half or more of the time? Yes. PROBLEM SOLVING - STEP 3: How often does the patient need help to solve basic routine problems? 10%-24% of the time PROBLEM SOLVING - SCORE: 4-MIN MEMORY: MEMORY - STEP 1: Does the patient need help to remember frequently encountered people, daily routines, and executing r equests? Yes. MEMORY - STEP 2: How often does the patient need help to remember frequently encountered people, daily routines, and e xecuting requests? Less than 10% of the time MEMORY - SCORE: 5-SUP SIGNATURE PANEL: The following modified sections: Eating - Score, Grooming - Score, Bathing - Score, Bathing - Comment s:, Dressing - Upper Body - Score, Dressing - Lower Body - Score, Dressing - Lower Body - Comments:, Toileting - Score, Transfers: Bed, Chair, Wheelchair - Score, Transfers: Toilet - Score, Transfers: S hower - Score, Transfers: Tub - Score, Comprehension - Score, Expression - Score, Social Interaction - Score, Problem Solving - Score, Memory - Score were [electronically] signed by Karey Ceja-Caden bernal OT on FriJul 15 2018 16:27:05 GMT-0500 (Central Daylight Time)
[2018-07-15] MEDS: DOCUSATE NA/SENNA CONC 1 TAB PO SCH (20:05)
[2018-07-15] MEDS: DIPHENHYDRAMINE 25 MG TAB/CAP PO PRN (20:26)
[2018-07-15] MEDS: ALBUTEROL 2.5 MG/3 ML NEB SOL NEB SCH (21:00)
--- NOTE | 2018-07-15 22:29 | PN ---
Date of Progress Note: 07/15/2018 Subjective: The patient was seen this morning. She was on the rehab floor. Denies any complaints. Her pain is well controlled with current pain medication. She did have bowel movement this morning. No abdominal pain, nausea, or vomiting. She is feeling much better overall this morning. Objective: Vital signs: Reviewed. HEENT: Examination unremarkable. Lungs: Clear to auscultation. Heart: Sounds normal. Abdomen: Soft. Bowel sounds normal. No guarding, rigidity, tenderness, or distention. Extremities: Trace leg edema. Impression: 1.Right shoulder fracture. 2.Right patella fracture. 3.Hypertension. 4.Chronic obstructive pulmonary disease. 5.Anemia. Laboratory Data: Labs today white count 4.5, hemoglobin 8.1, platelets 174. Sodium 140, potassium 3 .7, chloride 103, bicarb 34, BUN 16, creatinine 1.10, glucose 101. Plan: We will go ahead and continue Hemocyte. Monitor patient's blood work, especially hemoglobin, and we will continue current DVT prophylaxis using Lovenox. Continue current antihypertensive medication and current pain medications. I will see her tomorrow for followup. GIA/MODL Voice ID: [id number] Report ID: [id number]
[2018-07-16] MEDS: HYDROCODONE/APAP 7.5/325 MG TAB PO SCH ×3 (01:00→12:05)
--- NOTE | 2018-07-16 01:28 | FAST ---
SHIFT START DATE/TIME: 07/15/2018 19:00 (CDT) SHIFT END DATE/TIME: 07/16/2018 07:00 (CDT) NAME MARS AUGUSTIN DATE OF : 1930 DATE OF ADMISSION: 07/14/2018 17:52 (CDT) PHONE: AGE: 88 [facility]# [id number] GENDER: Female ENCOUNTER PHYSICIAN: Dr. Anthony Ybarra M.D. ADMISSION DIAGNOSIS: - Orthopaedic Disorders 08 - Other Orthopaedic (08.9) Right Patella Fracture. Right Shoulder Avulsion Fracture. Left 1st Proximal Phalanx Fracture. EATING: Activity did not occur on this shift EATING - SCORE: 0-UNK GROOMING: Activity did not occur on this shift GROOMING - SCORE: 0-UNK BATHING: Activity did not occur on this shift BATHING - SCORE: 0-UNK DRESSING - UPPER BODY: Patient is not dressing in public clothing ARTICLES SCORE Total number of steps: 0 DRESSING - UPPER BODY - SCORE: 0-UNK DRESSING - LOWER BODY: Patient is not dressing in public clothing ARTICLES SCORE Total number of steps: 0 DRESSING - LOWER BODY - SCORE: 0-UNK TOILETING: Activity did not occur on this shift TOILETING - SCORE: 0-UNK BLADDER MANAGEMENT: [place] cares for modi catheter including emptying drainage bag. BLADDER MANAGEMENT - SCORE: 1-DEP BOWEL MANAGEMENT: Activity did not occur on this shift BOWEL MANAGEMENT - SCORE: 7-IND TRANSFERS: BED, CHAIR, WHEELCHAIR: Activity did not occur on this shift TRANSFERS: BED, CHAIR, WHEELCHAIR - SCORE: 0-UNK TRANSFERS: TOILET: Activity did not occur on this shift TRANSFERS: TOILET - SCORE: 0-UNK TRANSFERS: SHOWER: Activity did not occur on this shift TRANSFERS: SHOWER - SCORE: 0-UNK TRANSFERS: TUB: Activity did not occur on this shift TRANSFERS: TUB - SCORE: 0-UNK LOCOMOTION: WALK: Activity did not occur on this shift LOCOMOTION: WALK - SCORE: 0-UNK LOCOMOTION: WHEELCHAIR: Activity did not occur on this shift LOCOMOTION: WHEELCHAIR - SCORE: 0-UNK COMPREHENSION: COMPREHENSION: TYPE: Both COMPREHENSION - STEP 1: Does the patient require help to understand complex and abstract ideas (such as current events, finan ny, discharge planning, medical issues, relationships, etc)? No. COMPREHENSION - STEP 2: Does the patient need extra time, require an assistive device (such as glasses, hearing aids, or an a ugmentative communication system), OR does s/he have mild difficulty expressing complex and abstract ideas (including mild dysarthria or mild word-finding problems)? Yes. COMPREHENSION - SCORE: 6-LETI EXPRESSION EXPRESSION: TYPE: Both EXPRESSION - STEP 1: Does the patient require help expressing complex and abstract ideas (such as current events, finances , discharge planning, medical issues, relationships, etc)? No. EXPRESSION - STEP 2: Does the patient need extra time, require an assistive device (such as augmentive communication syste m or a communication board), OR does s/he have mild difficulty expressing complex and abstract ideas (including mild dysarthria or mild word-find problems)? No. EXPRESSION - SCORE: 7-IND SOCIAL INTERACTION: SOCIAL INTERACTION - STEP 1: Does the patient require a helper to interact with others in social and therapeutic situations? No. SOCIAL INTERACTION - STEP 2: Does the patient need extra time in social situations, OR does s/he interact with staff, other patien ts, and family members ONLY in structured environments, OR does s/he require medication for social in teraction? Yes, patient needs extra time SOCIAL INTERACTION - SCORE: 6-LETI PROBLEM SOLVING: PROBLEM SOLVING - STEP 1: Does the patient need help to solve complex problems such as managing a checking account or confronti ng interpersonal problems? No. PROBLEM SOLVING - STEP 2: Does the patient require extra time to make decisions or solve problems, OR does s/he have slight dif ficulty reading, initiating, or self-correcting in unfamiliar situations? Yes, patient needs extra ti me. PROBLEM SOLVING - SCORE: 6-LETI MEMORY: MEMORY - STEP 1: Does the patient need help to remember frequently encountered people, daily routines, and executing r equests? No. MEMORY - STEP 2: Does the patient have slight difficulty recognizing frequently encountered people, daily routines, or executing requests without the need for repetition or using self-initiated or environmental cues to remember? No. MEMORY - SCORE: 7-IND SIGNATURE PANEL: The following modified sections: Eating - Score, Grooming - Score, Dressing - Upper Body - Score, Tray ssing - Lower Body - Score, Toileting - Score, Bladder Management - Score, Bowel Management - Score, Transfers: Bed, Chair, Wheelchair - Score, Transfers: Toilet - Score, Transfers: Shower - Score, García sfers: Tub - Score, Locomotion: Walk - Score, Locomotion: Wheelchair - Score, Comprehension - Score, Expression - Score, Social Interaction - Score, Problem Solving - Score, Memory - Score were [electro nically] signed by Julita Jacobs CNA on FriJul 16 2018 01:27:46 GMT-0500 (Central Daylight Time)
[2018-07-16] MEDS: ALBUTEROL 2.5 MG/3 ML NEB SOL NEB SCH ×2 (07:12→19:10)
[2018-07-16] MEDS: ENOXAPARIN 40 MG/0.4 ML SQ SCH (07:13)
[2018-07-16] MEDS: [UNRECOGNIZED DRUG - REMARK] NAS SCH (08:00)
[2018-07-16] MEDS: Anoro Ellipta 1 PUFF IH SCH (08:02)
[2018-07-16] MEDS: GABAPENTIN 300 MG CAP PO SCH ×2 (08:03→19:53)
[2018-07-16] MEDS: ASPIRIN EC 81 MG TAB PO SCH (08:04)
[2018-07-16] MEDS: FE SULF/FA/VIT B COMP & C TAB PO SCH (08:04)
[2018-07-16] MEDS: FUROSEMIDE 20 MG TABLET PO SCH (08:05)
[2018-07-16] MEDS: PANTOPRAZOLE 40MG TABLET PO SCH (08:05)
[2018-07-16] MEDS: LOSARTAN POTASSIUM 50 MG TABLET PO SCH (08:06)
[2018-07-16] MEDS: PROMOD 30 ML DOSE PO SCH ×2 (08:09→19:53)
[2018-07-16] MEDS: METOPROLOL XL 50 MG TAB PO SCH (12:05)
--- NOTE | 2018-07-16 14:53 | FAST ---
SHIFT START DATE/TIME: 07/15/2018 07:00 (CDT) SHIFT END DATE/TIME: 07/15/2018 19:00 (CDT) NAME MARS AUGUSTIN DATE OF : 1930 DATE OF ADMISSION: 07/14/2018 17:52 (CDT) PHONE: AGE: 88 [facility]# [id number] GENDER: Female ENCOUNTER PHYSICIAN: Dr. Anthony Ybarra M.D. ADMISSION DIAGNOSIS: - Orthopaedic Disorders 08 - Other Orthopaedic (08.9) Right Patella Fracture. Right Shoulder Avulsion Fracture. Left !st Proximal Phalanx Fracture. EATING: EATING - STEP 1: Does the patient require assistance when eating? Yes. EATING - STEP 2: Does the patient require the assistance of a helper? Yes. EATING - STEP 3: Does the patient perform half or more of the eating tasks? Yes. EATING - STEP 4: Does the patient need only supervision, cuing, coaxing OR help to apply an orthosis OR help to cut fo od, open containers, pour liquids, or butter bread? Yes. EATING - SCORE: 5-SUP GROOMING: Comb/brush hair Oral care Wash, rinse, and dry face Wash, rinse, and dry hands GROOMING - STEP 1: Does the patient require assistance when grooming? Yes. GROOMING - STEP 2: Does the patient require the assistance of a helper? No. The patient only requires an assistive devic e, OR takes more than reasonable time to groom, OR there is a concern for safety as the patient groom s GROOMING - SCORE: 6-LETI BATHING: Activity did not occur on this shift BATHING - SCORE: 0-UNK DRESSING - UPPER BODY: Activity did not occur on this shift ARTICLES SCORE Total number of steps: 0 DRESSING - UPPER BODY - SCORE: 0-UNK DRESSING - UPPER BODY - COMMENTS: With therapist DRESSING - LOWER BODY: Activity did not occur on this shift ARTICLES SCORE Total number of steps: 0 DRESSING - LOWER BODY - SCORE: 0-UNK DRESSING - LOWER BODY - COMMENTS: With therapist TOILETING: TOILETING - STEP 1: Does the patient require assistance with toileting? Yes. TOILETING - STEP 2: Does the patient require the assistance of a helper? Yes. TOILETING - STEP 3: How much assistance does the patient require from the helper? Hands-on assistance from the helper TOILETING - STEP 4: Of the 3 tasks: 1) Adjusting clothing prior to use, 2) Cleansing of perineal area, 3) Adjusting clot neda after use; How many tasks does the patient perform WITHOUT assistance of the helper? One task TOILETING - SCORE: 2-MAX BLADDER MANAGEMENT: BLADDER MANAGEMENT - STEP 1: Does the patient control the bladder completely and intentionally without equipment or devices or med ications, and is always continent? No. BLADDER MANAGEMENT - STEP 2: Does the patient require the assistance of a helper? Yes. BLADDER MANAGEMENT - STEP 3: How much assistance does the patient require from the helper? Only supervision, stand-by, cuing, or c oaxing BLADDER MANAGEMENT - SCORE: 5-SUP BLADDER MANAGEMENT - FREQUENCY OF ACCIDENTS: BLADDER MANAGEMENT(FA) - STEP 1: How many accidents has the patient had during the current shift? 0 BOWEL MANAGEMENT: BOWEL MANAGEMENT - STEP 1: Does the patient control bowels completely and intentionally without equipment devices or medications AND is always continent? No. BOWEL MANAGEMENT - STEP 2: Does the patient require the assistance of a helper? Yes. BOWEL MANAGEMENT - STEP 3: How much assistance does the patient require from the helper? Patient requires supervision, stand by, cueing, coaxing, or setup of equipment - placing within reach of patient and emptying device / bedpa nd or BSC bucket - to maintain either satisfactory bowel pattern or managing an external device such as an absorbent pad, colostomy bag / ileostomy bag BOWEL MANAGEMENT - SCORE: 5-SUP BOWEL MANAGEMENT - FREQUENCY OF ACCIDENTS: BOWEL MANAGEMENT(FA) - STEP 1: How many accidents has the patient had during the current shift? 0 TRANSFERS: BED, CHAIR, WHEELCHAIR: TRANSFERS: BED, CHAIR, WHEELCHAIR - STEP 1: Does the patient require assistance with bed, chair, or wheelchair transfers? Yes. TRANSFERS: BED, CHAIR, WHEELCHAIR - STEP 2: Does the patient require the assistance of a helper? Yes. TRANSFERS: BED, CHAIR, WHEELCHAIR - STEP 3: How much assistance does the patient require from the helper? Lifting of the patient TRANSFERS: BED, CHAIR, WHEELCHAIR - STEP 4: Does the helper lift the patient ONLY up? ONLY down? Up AND Down? Up AND Down. TRANSFERS: BED, CHAIR, WHEELCHAIR - SCORE: 2-MAX TRANSFERS: TOILET: TRANSFERS: TOILET - STEP 1: Does the patient require assistance with toilet transfers? Yes. TRANSFERS: TOILET - STEP 2: Does the patient require the assistance of a helper? Yes. TRANSFERS: TOILET - STEP 3: How much assistance does the patient require from the helper? Patient performs half or more of the tr ansferring tasks TRANSFERS: TOILET - STEP 4: Does the patient need only incidental help such as contact guard or steadying during toilet transfer? No. Patient needs more than incidental help TRANSFERS: TOILET - SCORE: 3-MOD TRANSFERS: SHOWER: Activity did not occur on this shift TRANSFERS: SHOWER - SCORE: 0-UNK TRANSFERS: TUB: Activity did not occur on this shift TRANSFERS: TUB - SCORE: 0-UNK LOCOMOTION: WALK: Activity did not occur on this shift LOCOMOTION: WALK - SCORE: 0-UNK LOCOMOTION: WHEELCHAIR: LOCOMOTION: WHEELCHAIR - STEP 1: Does the patient need help to go 150 feet in a wheelchair? Yes. LOCOMOTION: WHEELCHAIR - STEP 2: How much assistance does the patient need from the helper? Only incidental help such as around corner s or over thresholds LOCOMOTION: WHEELCHAIR - SCORE: 4-MIN COMPREHENSION: COMPREHENSION: TYPE: Both COMPREHENSION - STEP 1: Does the patient require help to understand complex and abstract ideas (such as current events, finan ny, discharge planning, medical issues, relationships, etc)? No. COMPREHENSION - STEP 2: Does the patient need extra time, require an assistive device (such as glasses, hearing aids, or an a ugmentative communication system), OR does s/he have mild difficulty expressing complex and abstract ideas (including mild dysarthria or mild word-finding problems)? Yes. COMPREHENSION - SCORE: 6-LETI EXPRESSION EXPRESSION: TYPE: Both EXPRESSION - STEP 1: Does the patient require help expressing complex and abstract ideas (such as current events, finances , discharge planning, medical issues, relationships, etc)? No. EXPRESSION - STEP 2: Does the patient need extra time, require an assistive device (such as augmentive communication syste m or a communication board), OR does s/he have mild difficulty expressing complex and abstract ideas (including mild dysarthria or mild word-find problems)? Yes. EXPRESSION - SCORE: 6-LETI SOCIAL INTERACTION: SOCIAL INTERACTION - STEP 1: Does the patient require a helper to interact with others in social and therapeutic situations? No. SOCIAL INTERACTION - STEP 2: Does the patient need extra time in social situations, OR does s/he interact with staff, other patien ts, and family members ONLY in structured environments, OR does s/he require medication for social in teraction? Yes, patient needs extra time SOCIAL INTERACTION - SCORE: 6-LETI PROBLEM SOLVING: PROBLEM SOLVING - STEP 1: Does the patient need help to solve complex problems such as managing a checking account or confronti ng interpersonal problems? No. PROBLEM SOLVING - STEP 2: Does the patient require extra time to make decisions or solve problems, OR does s/he have slight dif ficulty reading, initiating, or self-correcting in unfamiliar situations? No. PROBLEM SOLVING - SCORE: 7-IND MEMORY: MEMORY - STEP 1: Does the patient need help to remember frequently encountered people, daily routines, and executing r equests? No. MEMORY - STEP 2: Does the patient have slight difficulty recognizing frequently encountered people, daily routines, or executing requests without the need for repetition or using self-initiated or environmental cues to remember? No. MEMORY - SCORE: 7-IND SIGNATURE PANEL: The following modified sections: Eating - Score, Grooming - Score, Bathing - Score, Dressing - Upper Body - Score, Dressing - Upper Body - Comments:, Dressing - Lower Body - Comments:, Toileting - Score , Bladder Management - Score, Bowel Management - Score, Transfers: Bed, Chair, Wheelchair - Score, Tr ansfers: Toilet - Score, Transfers: Shower - Score, Transfers: Tub - Score, Locomotion: Walk - Score, Locomotion: Wheelchair - Score, Comprehension - Score, Expression - Score, Social Interaction - Scor e, Problem Solving - Score, Memory - Score, Dressing - Lower Body - Score were [electronically] steffen d by Jv CagleNCarlos on FriJul 16 2018 14:53:05 GMT-0500 (Central Daylight Time)
--- NOTE | 2018-07-16 14:54 | FAST ---
SHIFT START DATE/TIME: 07/16/2018 07:00 (CDT) SHIFT END DATE/TIME: 07/16/2018 19:00 (CDT) NAME MARS AUGUSTIN DATE OF : 1930 DATE OF ADMISSION: 07/14/2018 17:52 (CDT) PHONE: AGE: 88 [facility]# [id number] GENDER: Female ENCOUNTER PHYSICIAN: Dr. Anthony Ybarra M.D. ADMISSION DIAGNOSIS: - Orthopaedic Disorders 08 - Other Orthopaedic (08.9) Right Patella Fracture. Right Shoulder Avulsion Fracture. Left 1st Proximal Phalanx Fracture. EATING: EATING - STEP 1: Does the patient require assistance when eating? Yes. EATING - STEP 2: Does the patient require the assistance of a helper? No, patient only requires an assistive device, O R s/he takes more than reasonable time to eat, OR there is a safety concern, OR s/he requires modifie d food consistency EATING - SCORE: 6-LETI GROOMING: Comb/brush hair Wash, rinse, and dry face Wash, rinse, and dry hands GROOMING - STEP 1: Does the patient require assistance when grooming? Yes. GROOMING - STEP 2: Does the patient require the assistance of a helper? No. The patient only requires an assistive devic e, OR takes more than reasonable time to groom, OR there is a concern for safety as the patient groom s GROOMING - SCORE: 6-LETI BATHING: Activity did not occur on this shift BATHING - SCORE: 0-UNK DRESSING - UPPER BODY: T-shirt/pullover shirt (four steps) ARTICLES SCORE Total number of steps: 4 DRESSING - UPPER BODY - STEP 1: Does the patient require help when dressing above the waist? Yes. DRESSING - UPPER BODY - STEP 2: Does the patient require the assistance of a helper? Yes. DRESSING - UPPER BODY - STEP 3: Does the helper touch the patient while dressing? Yes. DRESSING - UPPER BODY - STEP 4: How many of the total steps does the patient complete on his/her own? 1 DRESSING - UPPER BODY - STEP 5: Does Patient require total assistance for dressing above the waist such as the helper holding clothin g and performing basically all the activities? Yes. DRESSING - UPPER BODY - SCORE: 1-DEP DRESSING - UPPER BODY - COMMENTS: NWB to RUE - right arm in sling DRESSING - LOWER BODY: Tied or buckled shoe - Left foot (two steps) Underwear (three steps) ARTICLES SCORE Total number of steps: 5 DRESSING - LOWER BODY - STEP 1: Does the patient require help when dressing below the waist? Yes. DRESSING - LOWER BODY - STEP 2: Does the patient require the assistance of a helper? Yes. DRESSING - LOWER BODY - STEP 3: Does the helper touch the patient while dressing? Yes. DRESSING - LOWER BODY - STEP 4: How many of the total steps does the patient complete on his/her own? 0 DRESSING - LOWER BODY - STEP 5: Does patient require total assistance for dressing below the waist such as the helper holding clothin g and performing basically all the activities? Yes. DRESSING - LOWER BODY - SCORE: 1-DEP DRESSING - LOWER BODY - COMMENTS: Boot on left foot - right leg immobilizer on TOILETING: Activity did not occur on this shift TOILETING - SCORE: 0-UNK TOILETING - COMMENTS: Modi BLADDER MANAGEMENT: Divide cares for modi catheter including emptying drainage bag. BLADDER MANAGEMENT - SCORE: 1-DEP BLADDER MANAGEMENT - FREQUENCY OF ACCIDENTS: BLADDER MANAGEMENT(FA) - STEP 1: How many accidents has the patient had during the current shift? 0 BOWEL MANAGEMENT: Activity did not occur on this shift BOWEL MANAGEMENT - SCORE: 7-IND BOWEL MANAGEMENT - FREQUENCY OF ACCIDENTS: BOWEL MANAGEMENT(FA) - STEP 1: How many accidents has the patient had during the current shift? 0 TRANSFERS: BED, CHAIR, WHEELCHAIR: TRANSFERS: BED, CHAIR, WHEELCHAIR - STEP 1: Does the patient require assistance with bed, chair, or wheelchair transfers? Yes. TRANSFERS: BED, CHAIR, WHEELCHAIR - STEP 2: Does the patient require the assistance of a helper? Yes. TRANSFERS: BED, CHAIR, WHEELCHAIR - STEP 3: How much assistance does the patient require from the helper? Lifting of the patient TRANSFERS: BED, CHAIR, WHEELCHAIR - STEP 4: Does the helper lift the patient ONLY up? ONLY down? Up AND Down? Up AND Down. TRANSFERS: BED, CHAIR, WHEELCHAIR - SCORE: 2-MAX TRANSFERS: TOILET: Activity did not occur on this shift TRANSFERS: TOILET - SCORE: 0-UNK TRANSFERS: SHOWER: Activity did not occur on this shift TRANSFERS: SHOWER - SCORE: 0-UNK TRANSFERS: TUB: Activity did not occur on this shift TRANSFERS: TUB - SCORE: 0-UNK LOCOMOTION: WALK: Activity did not occur on this shift LOCOMOTION: WALK - SCORE: 0-UNK LOCOMOTION: WHEELCHAIR: Activity did not occur on this shift LOCOMOTION: WHEELCHAIR - SCORE: 0-UNK COMPREHENSION: COMPREHENSION: TYPE: Both COMPREHENSION - STEP 1: Does the patient require help to understand complex and abstract ideas (such as current events, finan ny, discharge planning, medical issues, relationships, etc)? No. COMPREHENSION - STEP 2: Does the patient need extra time, require an assistive device (such as glasses, hearing aids, or an a ugmentative communication system), OR does s/he have mild difficulty expressing complex and abstract ideas (including mild dysarthria or mild word-finding problems)? Yes. COMPREHENSION - SCORE: 6-LETI EXPRESSION EXPRESSION: TYPE: Both EXPRESSION - STEP 1: Does the patient require help expressing complex and abstract ideas (such as current events, finances , discharge planning, medical issues, relationships, etc)? No. EXPRESSION - STEP 2: Does the patient need extra time, require an assistive device (such as augmentive communication syste m or a communication board), OR does s/he have mild difficulty expressing complex and abstract ideas (including mild dysarthria or mild word-find problems)? Yes. EXPRESSION - SCORE: 6-LETI SOCIAL INTERACTION: SOCIAL INTERACTION - STEP 1: Does the patient require a helper to interact with others in social and therapeutic situations? No. SOCIAL INTERACTION - STEP 2: Does the patient need extra time in social situations, OR does s/he interact with staff, other patien ts, and family members ONLY in structured environments, OR does s/he require medication for social in teraction? Yes, patient needs extra time SOCIAL INTERACTION - SCORE: 6-LETI PROBLEM SOLVING: PROBLEM SOLVING - STEP 1: Does the patient need help to solve complex problems such as managing a checking account or confronti ng interpersonal problems? No. PROBLEM SOLVING - STEP 2: Does the patient require extra time to make decisions or solve problems, OR does s/he have slight dif ficulty reading, initiating, or self-correcting in unfamiliar situations? No. PROBLEM SOLVING - SCORE: 7-IND MEMORY: MEMORY - STEP 1: Does the patient need help to remember frequently encountered people, daily routines, and executing r equests? No. MEMORY - STEP 2: Does the patient have slight difficulty recognizing frequently encountered people, daily routines, or executing requests without the need for repetition or using self-initiated or environmental cues to remember? No. MEMORY - SCORE: 7-IND SIGNATURE PANEL: The following modified sections: Grooming - Score, Bathing - Score, Dressing - Upper Body - Score, Dr perez - Upper Body - Comments:, Dressing - Lower Body - Score, Dressing - Lower Body - Comments:, To ileting - Score, Toileting - Comments:, Bladder Management - Score, Bowel Management - Score, Transfe rs: Bed, Chair, Wheelchair - Score, Transfers: Toilet - Score, Transfers: Shower - Score, Transfers: Tub - Score, Locomotion: Walk - Score, Locomotion: Wheelchair - Score, Comprehension - Score, Express ion - Score, Social Interaction - Score, Problem Solving - Score, Memory - Score, Eating - Score were [electronically] signed by Naomi Gaston C.N.A. on FriJul 16 2018 14:53:44 [facility]-0500 ([facility])
[2018-07-16 15:47] VITALS: BMI 32.1
[2018-07-16] MEDS: FERROUS SULFATE 325 MG TAB PO SCH (17:07)
--- NOTE | 2018-07-16 17:20 | R.PN ---
ENCOUNTER DATE AND TIME: 07/16/2018 17:16 (CDT) NAME MARS AUGUSTIN DATE OF : 1930 DATE OF ADMISSION: 07/14/2018 17:52 (CDT) Right Patella FractureRight Shoulder Avulsion FractureLeft 1st Proximal Phalanx FractureCHIEF COMPLAI NT: Right patella fracture, right shoulder avulsion fracture SUBJECTIVE: Pt denied any Shortness of Breath. Pt denied any depression. Ambulated 54' with minimum assistance using a left hemiwalker. VITAL SIGNS Temperature: 98.3 F SBP/DBP: 120/68 Pulse: 94 Resp: 17 MEDICATION ALLERGIES: Ibuprofen Codeine Penicillin ENVIRONMENTAL ALLERGIES: None Known - Substance Allergies None Known - Other Allergies None Known NURSING: - Shower allowing shower - Skin care per protocol PRECAUTIONS: - Weight Bearing Precaution NWB right UE WBAT right LE ACTIVITIES OOB only with supervision THERAPIES: - Occupational Therapy Evaluate and Treat. - Physical Therapy Evaluate and Treat. PHYSICAL EXAM - Gen Alert and awake Lying in bed No apparent distress Oriented to: person, time, and place - Skin No skin breakdown. Normacephalic - Eyes No abnormalities - ENMT No abnormalities - Neck No abnormalities - CVS RRR - Chest Clear - Abd Soft - GI nondistended Deferred - No abnormalities - Ext No significant edema - MSK 4+/5 weakness in right lower extremity - Neuro 4/5 strength right upper and lower extremities. - Psych No abnormalities ASSESSMENT: Pt. is a 88 yo Right-handed white female.On 07/10/2018 she was admitted to [facility] with diagnosis Right Patella Fracture.Her impairment category is Orthopaedic Disorders 08 - O ther Orthopaedic (08.9).Pre-morbidly, Pt. was independent/mod-I in Social Cognition, Communication, S phincter Control, Locomotion, Self-Care, and Transfers Control; and she had good Sphincter Control.Cu rrently, she has deficits of Locomotion, Self-Care, Transfers Control, Safety Awareness, Balance, and Endurance.Pt. is now referred to [facility] for acute in-patient rehabilitati on in order to maximize patient's functional independence in activities of daily living, strength, RO M, and mobility.- Rehab Goal Patient has realistic goal of being discharged at assistance level 6-Betsy to reside at Home with Fam sukumar/Relatives. MDM/PLAN: - Physical Therapy Weakness - to improve, our physical therapists will perform initial evaluation of pt's status upon ad mission and devise an individualized program for Aquatic Therapy, Neuromuscular Reeducation, and Stre ngthening Poor balance - to improve, our physical therapists will perform initial evaluation of pt's status upo n admission and devise an individualized program for Balance Training Inability to transfer - to improve, our physical therapists will perform initial evaluation of pt's s tatus upon admission and devise an individualized program for Bed mobility Decreased range of motion - to improve, our physical therapists will perform initial evaluation of pt 's status upon admission and devise an individualized program for increasing patient's Range of Motio n. Need in caregiver upon discharge - to improve, our physical therapists will perform initial evaluatio n of pt's status upon admission and devise an individualized program for Caregiver Training Poor endurance - to improve, our physical therapists will perform initial evaluation of pt's status u prudence admission and devise an individualized program for Endurance Training Gait dysfunction - to improve, our physical therapists will perform initial evaluation of pt's status upon admission and devise an individualized program for Gait Training, and Wheel Chair mobility Need for home safety evaluation - to improve, our physical therapists will perform initial evaluation of pt's status upon admission and devise an individualized program for Home Evaluation New precaution - to improve, our physical therapists will perform initial evaluation of pt's status u prudence admission and devise an individualized program for Patient precaution education Edema - to improve, our physical therapists will perform initial evaluation of pt's status upon admis elliot and devise an individualized program for Elevation Training, and Lymphedema Therapy - Occupational Therapy Weakness - to improve, our occupation therapists will perform initial evaluation of pt's status upon admission and devise an individualized program for Aquatic Therapy, Balance, Endurance, UE ROM, and U E strengthening ADL deficits - to improve, our occupation therapists will perform initial evaluation of pt's status u prudence admission and devise an individualized program for Bathing, Bed mobility, Community Reintegration , Cooking, Dressing, Eating, Fine Motor Skills, Grooming, Homemaking, Kitchen Mobility, Laundry, Nancie ent Education, Safety Awareness, Splinting - Positioning, Transfers(Toilet, Tub, Shower), and Wheel C hair Management Need for patient care nursing assistant - to improve, our occupation therapists will perform initial evaluation of pt's s tatus upon admission and devise an individualized program for Caregiver Training - Diet Type Continue Regular - Diet - Liquid Texture Continue Regular - Tube Feed Continue N/A - Weight Bearing Precaution NWB right UE WBAT right LE - Skin care per protocol - Diet - Solid Texture Continue Regular - Shower allowing shower - Balance for Weakness - Bed mobility for ADL deficits FUNCTIONAL STATUS: UPDATED AT WEEKLY TEAM CONFERENCE - Bladder Same accident frequency: 7-Ind - No accidents in the past 7 days - Bowel Same accident frequency: 7-Ind - No accidents in the past 7 days - Walking Same score based on distance walked: 0(N/A) - Wheelchair Same score based on distance traveled: 0(N/A) FUNCTIONAL STATUS: - Self-Care A. Eating Mary B. Grooming Mary C. Bathing Dep D. Dressing - Upper Dep E. Dressing - Lower Dep F. Toileting modA - Sphincter Control G: Bladder control Dep H: Bowel control Ind - Transfers Control I. Bed/Chair/Wheelchair modA J. Toilet modA K. Tub/Shower ADNO - Locomotion L. Walk/Wheelchair (B) modA M. Stairs ADNO - Communication N. Comprehension (B) Ind O. Expression (B) Ind - Social Cognition P. Social Interaction Ind Q. Problem Solving Ind R. Memory Ind - Endurance Fair - Balance Fair - Safety Awareness Fair [facility] DEFICITS: Locomotion, Self-Care, Transfers Control, Safety Awareness, Balance, and Endurance SIGNATURE PANEL: (CDT)
[2018-07-16] MEDS: HYDROCODONE/APAP 7.5/325 MG TAB PO PRN (19:52)
[2018-07-16] MEDS: DIPHENHYDRAMINE 25 MG TAB/CAP PO PRN (19:53)
[2018-07-16] MEDS: MAGNESIUM OXIDE 400 MG TAB PO SCH (19:53)
[2018-07-16] MEDS: DOCUSATE NA/SENNA CONC 1 TAB PO SCH (19:53)
--- NOTE | 2018-07-16 23:35 | PN ---
Date of Progress Note: 07/16/2018 Subjective: The patient was seen this morning for followup. No new complaints or problems reported by the patient. Lying in bed, not in distress. Pain is under good control. Objective: Vital Signs: Reviewed. HEENT: Unremarkable. Lungs: Clear to auscultation. Heart: Sounds normal. Abdomen: Soft. Bowel sounds normal. No guarding, rigidity, tenderness, distention. Extremities: Trace leg edema and right knee has contusion present. Right upper extremity contusion unchanged. Impression: 1.Fracture, right patella. 2.Fracture, right shoulder. 3.Hypertension. 4.Chronic obstructive pulmonary disease. 5.Anemia. Plan: We will continue current iron supplement. Continue current antihypertensive medication. Love nox for DVT prophylaxis. Continue current pain medication and physical therapy under guidance of Dr. Ybarra. GIA/MODL Voice ID: [id number] Report ID: [id number]
--- NOTE | 2018-07-17 01:27 | FAST ---
SHIFT START DATE/TIME: 07/16/2018 19:00 (CDT) SHIFT END DATE/TIME: 07/17/2018 07:00 (CDT) NAME MARS AUGUSTIN DATE OF : 1930 DATE OF ADMISSION: 07/14/2018 17:52 (CDT) PHONE: AGE: 88 [facility]# [id number] GENDER: Female ENCOUNTER PHYSICIAN: Dr. Anthony Ybarra M.D. ADMISSION DIAGNOSIS: - Orthopaedic Disorders 08 - Other Orthopaedic (08.9) Right Patella Fracture. Right Shoulder Avulsion Fracture. Left 1st Proximal Phalanx Fracture. EATING: Activity did not occur on this shift EATING - SCORE: 0-UNK GROOMING: Activity did not occur on this shift GROOMING - SCORE: 0-UNK BATHING: Activity did not occur on this shift BATHING - SCORE: 0-UNK DRESSING - UPPER BODY: Patient is not dressing in public clothing ARTICLES SCORE Total number of steps: 0 DRESSING - UPPER BODY - SCORE: 0-UNK DRESSING - LOWER BODY: Patient is not dressing in public clothing ARTICLES SCORE Total number of steps: 0 DRESSING - LOWER BODY - SCORE: 0-UNK TOILETING: TOILETING - STEP 1: Does the patient require assistance with toileting? Yes. TOILETING - STEP 2: Does the patient require the assistance of a helper? Yes. TOILETING - STEP 3: How much assistance does the patient require from the helper? Hands-on assistance from the helper TOILETING - STEP 4: Of the 3 tasks: 1) Adjusting clothing prior to use, 2) Cleansing of perineal area, 3) Adjusting clot neda after use; How many tasks does the patient perform WITHOUT assistance of the helper? One task TOILETING - SCORE: 2-MAX BLADDER MANAGEMENT: BLADDER MANAGEMENT - STEP 1: Does the patient control the bladder completely and intentionally without equipment or devices or med ications, and is always continent? No. BLADDER MANAGEMENT - STEP 2: Does the patient require the assistance of a helper? Yes. BLADDER MANAGEMENT - STEP 3: How much assistance does the patient require from the helper? Only set-up of equipment - such as plac ing it within reach of the patient or emptying a device - to maintain either satisfactory voiding pat tern or managing an external device, such as an absorbent pad, ileal device, or catheter BLADDER MANAGEMENT - SCORE: 5-SUP BOWEL MANAGEMENT: Activity did not occur on this shift BOWEL MANAGEMENT - SCORE: 7-IND TRANSFERS: BED, CHAIR, WHEELCHAIR: TRANSFERS: BED, CHAIR, WHEELCHAIR - STEP 1: Does the patient require assistance with bed, chair, or wheelchair transfers? Yes. TRANSFERS: BED, CHAIR, WHEELCHAIR - STEP 2: Does the patient require the assistance of a helper? Yes. TRANSFERS: BED, CHAIR, WHEELCHAIR - STEP 3: How much assistance does the patient require from the helper? Lifting of the patient TRANSFERS: BED, CHAIR, WHEELCHAIR - STEP 4: Does the helper lift the patient ONLY up? ONLY down? Up AND Down? Up AND Down. TRANSFERS: BED, CHAIR, WHEELCHAIR - SCORE: 2-MAX TRANSFERS: TOILET: TRANSFERS: TOILET - STEP 1: Does the patient require assistance with toilet transfers? Yes. TRANSFERS: TOILET - STEP 2: Does the patient require the assistance of a helper? Yes. TRANSFERS: TOILET - STEP 3: How much assistance does the patient require from the helper? Patient performs half or more of the tr ansferring tasks TRANSFERS: TOILET - STEP 4: Does the patient need only incidental help such as contact guard or steadying during toilet transfer? No. Patient needs more than incidental help TRANSFERS: TOILET - SCORE: 3-MOD TRANSFERS: SHOWER: Activity did not occur on this shift TRANSFERS: SHOWER - SCORE: 0-UNK TRANSFERS: TUB: Activity did not occur on this shift TRANSFERS: TUB - SCORE: 0-UNK LOCOMOTION: WALK: Activity did not occur on this shift LOCOMOTION: WALK - SCORE: 0-UNK LOCOMOTION: WHEELCHAIR: Activity did not occur on this shift LOCOMOTION: WHEELCHAIR - SCORE: 0-UNK COMPREHENSION: COMPREHENSION: TYPE: Both COMPREHENSION - STEP 1: Does the patient require help to understand complex and abstract ideas (such as current events, finan ny, discharge planning, medical issues, relationships, etc)? No. COMPREHENSION - STEP 2: Does the patient need extra time, require an assistive device (such as glasses, hearing aids, or an a ugmentative communication system), OR does s/he have mild difficulty expressing complex and abstract ideas (including mild dysarthria or mild word-finding problems)? Yes. COMPREHENSION - SCORE: 6-LETI EXPRESSION EXPRESSION: TYPE: Both EXPRESSION - STEP 1: Does the patient require help expressing complex and abstract ideas (such as current events, finances , discharge planning, medical issues, relationships, etc)? No. EXPRESSION - STEP 2: Does the patient need extra time, require an assistive device (such as augmentive communication syste m or a communication board), OR does s/he have mild difficulty expressing complex and abstract ideas (including mild dysarthria or mild word-find problems)? No. EXPRESSION - SCORE: 7-IND SOCIAL INTERACTION: SOCIAL INTERACTION - STEP 1: Does the patient require a helper to interact with others in social and therapeutic situations? No. SOCIAL INTERACTION - STEP 2: Does the patient need extra time in social situations, OR does s/he interact with staff, other patien ts, and family members ONLY in structured environments, OR does s/he require medication for social in teraction? No. SOCIAL INTERACTION - SCORE: 7-IND PROBLEM SOLVING: PROBLEM SOLVING - STEP 1: Does the patient need help to solve complex problems such as managing a checking account or confronti ng interpersonal problems? No. PROBLEM SOLVING - STEP 2: Does the patient require extra time to make decisions or solve problems, OR does s/he have slight dif ficulty reading, initiating, or self-correcting in unfamiliar situations? Yes, patient needs extra ti me. PROBLEM SOLVING - SCORE: 6-LETI MEMORY: MEMORY - STEP 1: Does the patient need help to remember frequently encountered people, daily routines, and executing r equests? No. MEMORY - STEP 2: Does the patient have slight difficulty recognizing frequently encountered people, daily routines, or executing requests without the need for repetition or using self-initiated or environmental cues to remember? Yes. MEMORY - SCORE: 6-LETI SIGNATURE PANEL: The following modified sections: Eating - Score, Grooming - Score, Dressing - Upper Body - Score, Tray ssing - Lower Body - Score, Toileting - Score, Bladder Management - Score, Bowel Management - Score, Transfers: Bed, Chair, Wheelchair - Score, Transfers: Toilet - Score, Transfers: Shower - Score, García sfers: Tub - Score, Locomotion: Walk - Score, Locomotion: Wheelchair - Score, Comprehension - Score, Expression - Score, Social Interaction - Score, Problem Solving - Score, Memory - Score were [electro nically] signed by Julita Jacobs CNA on FriJul 17 2018 01:26:57 T-0500 (Central Daylight Time)
[2018-07-17] MEDS: HYDROCODONE/APAP 7.5/325 MG TAB PO PRN ×3 (04:15→14:21)
[2018-07-17 06:26] LABS: Hematocrit 24.4 % (36.0-45.0)
[2018-07-17] MEDS: [UNRECOGNIZED DRUG - REMARK] NAS SCH (06:59)
[2018-07-17] MEDS: ENOXAPARIN 40 MG/0.4 ML SQ SCH (06:59)
[2018-07-17] MEDS: Anoro Ellipta 1 PUFF IH SCH (06:59)
[2018-07-17] MEDS: PANTOPRAZOLE 40MG TABLET PO SCH (07:00)
[2018-07-17] MEDS: ALBUTEROL 2.5 MG/3 ML NEB SOL NEB SCH ×2 (07:43→21:01)
[2018-07-17] MEDS: LOSARTAN POTASSIUM 50 MG TABLET PO SCH (08:00)
[2018-07-17] MEDS: METOPROLOL XL 50 MG TAB PO SCH (08:00)
[2018-07-17] MEDS: LIDOCAINE 5% PATCH TOP SCH (08:10)
[2018-07-17] MEDS: FERROUS SULFATE 325 MG TAB PO SCH (08:11)
[2018-07-17] MEDS: TRAMADOL HCL 50 MG TAB PO PRN ×3 (08:11→21:34)
[2018-07-17] MEDS: FE SULF/FA/VIT B COMP & C TAB PO SCH (08:11)
[2018-07-17] MEDS: FUROSEMIDE 20 MG TABLET PO SCH (08:11)
[2018-07-17] MEDS: PROMOD 30 ML DOSE PO SCH ×2 (08:12→20:37)
[2018-07-17] MEDS: ASPIRIN EC 81 MG TAB PO SCH (08:12)
[2018-07-17] MEDS: MAGNESIUM OXIDE 400 MG TAB PO SCH ×2 (08:12→20:36)
[2018-07-17] MEDS: GABAPENTIN 300 MG CAP PO SCH ×2 (08:12→20:36)
--- NOTE | 2018-07-17 09:42 | P.RH.PN ---
Estimated Length of Stay: 14 Expected Discharge Date: 07/28/18 Discharge Disposition Plan: Home Family Support: Yes [facility] Goal: Mobility, Transfers, Self Care Vital Signs: Last Vital Signs Temp 97.4 F 07/17/18 06:40 Pulse 74 07/17/18 08:11 Resp 18 07/17/18 06:40 BP 117/45 L 07/17/18 08:11 Pulse Ox 90 L 07/17/18 06:40 Laboratory: Laboratory Last Values WBC 4.5 K/uL (4.3-10.9) 07/15/18 06:13 RBC 2.77 M/uL (3.86-4.86) L 07/15/18 06:13 Hgb 8.3 g/dL (12.0-15.0) L 07/17/18 06:04 Hct 24.4 % (36.0-45.0) L 07/17/18 06:04 MCV 87.9 fL (80-100) 07/15/18 06:13 MCH 29.4 pg (27.0-35.0) 07/15/18 06:13 MCHC 33.4 g/dL (32.0-36.0) 07/15/18 06:13 RDW 14.3 % (12.1-15.2) 07/15/18 06:13 Plt Count 174 K/uL (152-406) D 07/15/18 06:13 MPV 8.8 fL (7.6-11.3) 07/15/18 06:13 Neutrophils % 63.3 % (41.7-73.7) 07/15/18 06:13 Lymphocytes % 23.6 % (15.3-44.8) 07/15/18 06:13 Monocytes % 7.8 % (3.3-12.3) 07/15/18 06:13 Eosinophils % 4.6 % (0-4.4) H 07/15/18 06:13 Basophils % 0.7 % (0-1.3) 07/15/18 06:13 Absolute Neutrophils 2.8 K/uL (1.8-8.0) 07/15/18 06:13 Absolute Lymphocytes 1.1 K/uL (0.7-4.9) 07/15/18 06:13 Absolute Monocytes 0.3 K/uL (0.1-1.3) 07/15/18 06:13 Absolute Eosinophils 0.2 K/uL (0-0.5) 07/15/18 06:13 Absolute Basophils 0.0 K/uL (0-0.5) 07/15/18 06:13 Sodium 140 mmol/L (136-145) 07/15/18 06:13 Potassium 3.7 mmol/L (3.5-5.1) 07/15/18 06:13 Chloride 103 mmol/L (98-107) 07/15/18 06:13 Carbon Dioxide 34 mmol/L (21-32) H 07/15/18 06:13 BUN 16 mg/dL (7-18) 07/15/18 06:13 Creatinine 1.10 mg/dL (0.55-1.3) 07/15/18 06:13 Estimated GFR 47 mL/min (=/>90) L 07/15/18 06:13 Glucose 101 mg/dL (74-106) 07/15/18 06:13 Calcium 8.6 mg/dL (8.5-10.1) 07/15/18 06:13 Magnesium 2.0 mg/dL (1.8-2.4) 07/15/18 06:13 Albumin 2.3 g/dL (3.4-5.0) L D 07/15/18 06:13 Prealbumin 11.2 mg/dL (20-40) L 07/15/18 06:13 Urine Color Yellow 07/14/18 21: Urine Appearance Clear 07/14/18 21:27 Urine pH 6.0 (5.0-7.0) 07/14/18 21:27 Ur Specific [place] 1.010 (1.005-1.030) 07/14/18 21:27 Urine Ketones Negative (NEG) 07/14/18 21:27 Urine Blood Negative (NEG) 07/14/18 21: Urine Nitrite Negative (NEG) 07/14/18 21: Urine Bilirubin Negative (NEG) 07/14/18 21: Urine Urobilinogen 0.2 mg/dL (0.2-1.0) 07/14/18 21:27 Ur Leukocyte Esterase Negative (NEG) 07/14/18 21:27 Urine RBC <5 /HPF (NONE SEEN) 07/14/18 21:27 Urine WBC <5 /HPF (<5) 07/14/18 21:27 Ur Squamous Epith Cells <5 /HPF (NONE SEEN) 07/14/18 21:27 Urine Bacteria <20 /HPF (<20) 07/14/18 21:27 Urine Culture Reflexed Not needed 07/14/18 21:27 Urine Glucose Negative (NEG) 07/14/18 21:27 Urine Total Protein Negative (NEG) 07/14/18 21:27 Weight: 199 lb 0.6 oz Wound Present: Yes Closed Surgical Incision Present: No Negative Pressure Wound Therapy Present: No Physician Update: She is doing better with physical and occupational therapy. She requires moderate assistance to get up due to the right leg immobilzer. Her Hgb is low at 8.3. She is on hemocyte plus and ferrous sulfate. Will continue back pain patch. Pain Issues: Remington 7.5/325mg Q6H PRN. Tramadol 50mg Q6H PRN Functional Improvement: Patient presents w/ good attitude and work ethic toward therapy. Patient showed good instruction w/ gait tx. Summary: Patient's care plan and care home goals have been reviewed and revised as necessary. Please see the Rehabilitation Signature page for all necessary signatures.
--- NOTE | 2018-07-17 16:54 | FAST ---
ENCOUNTER DATE AND TIME: 07/17/2018 08:00 (CDT) NAME MARS AUGUSTIN DATE OF : 1930 DATE OF ADMISSION: 07/14/2018 17:52 (CDT) PHONE: AGE: 88 N# [id number] GENDER: Female ENCOUNTER PHYSICIAN: Dr. Anthony Ybarra M.D. ADMISSION DIAGNOSIS: - Orthopaedic Disorders 08 - Other Orthopaedic (08.9) Right Patella Fracture. Right Shoulder Avulsion Fracture. Left 1st Proximal Phalanx Fracture. EATING: EATING - STEP 1: Does the patient require assistance when eating? No. EATING - SCORE: 7-IND GROOMING: Comb/brush hair Wash, rinse, and dry face Wash, rinse, and dry hands GROOMING - STEP 1: Does the patient require assistance when grooming? No. GROOMING - SCORE: 7-IND BATHING: Abdomen Buttocks Chest Left arm Left lower leg and foot Left upper leg Perineal area Right arm Right lower leg and foot Right upper leg BATHING - STEP 1: Does the patient require assistance when bathing? Yes. BATHING - STEP 2: Does the patient require the assistance of a helper? Yes. BATHING - STEP 3: How much assistance does the patient require from the helper? Only incidental help such as placement of a wash cloth in his/her hand a few times as s/he bathes OR help to bathe just one or two areas of the body BATHING - SCORE: 4-MIN DRESSING - UPPER BODY: Button down/zippered sweater (four steps) ARTICLES SCORE Total number of steps: 4 DRESSING - UPPER BODY - STEP 1: Does the patient require help when dressing above the waist? Yes. DRESSING - UPPER BODY - STEP 2: Does the patient require the assistance of a helper? Yes. DRESSING - UPPER BODY - STEP 3: Does the helper touch the patient while dressing? Yes. DRESSING - UPPER BODY - STEP 4: How many of the total steps does the patient complete on his/her own? 2 DRESSING - UPPER BODY - SCORE: 3-MOD DRESSING - LOWER BODY: Sock - Left foot (one step) Sock - Right foot (one step) Underwear (three steps) ARTICLES SCORE Total number of steps: 5 DRESSING - LOWER BODY - STEP 1: Does the patient require help when dressing below the waist? Yes. DRESSING - LOWER BODY - STEP 2: Does the patient require the assistance of a helper? Yes. DRESSING - LOWER BODY - STEP 3: Does the helper touch the patient while dressing? Yes. DRESSING - LOWER BODY - STEP 4: How many of the total steps does the patient complete on his/her own? 0 DRESSING - LOWER BODY - STEP 5: Does patient require total assistance for dressing below the waist such as the helper holding clothin g and performing basically all the activities? Yes. DRESSING - LOWER BODY - SCORE: 1-DEP TOILETING: Activity did not occur on this shift TOILETING - SCORE: 0-UNK BLADDER MANAGEMENT: Activity did not occur on this shift BLADDER MANAGEMENT - SCORE: 7-IND BOWEL MANAGEMENT: Activity did not occur on this shift BOWEL MANAGEMENT - SCORE: 7-IND TRANSFERS: BED, CHAIR, WHEELCHAIR: Activity did not occur on this shift TRANSFERS: BED, CHAIR, WHEELCHAIR - SCORE: 0-UNK TRANSFERS: TOILET: Activity did not occur on this shift TRANSFERS: TOILET - SCORE: 0-UNK TRANSFERS: SHOWER: More than one helper is required for shower transfer TRANSFERS: SHOWER - SCORE: 1-DEP TRANSFERS: TUB: Activity did not occur on this shift TRANSFERS: TUB - SCORE: 0-UNK LOCOMOTION: WALK: Activity did not occur on this shift LOCOMOTION: WALK - SCORE: 0-UNK LOCOMOTION: WHEELCHAIR: Activity did not occur on this shift LOCOMOTION: WHEELCHAIR - SCORE: 0-UNK LOCOMOTION: STAIRS: Activity did not occur on this shift LOCOMOTION: STAIRS - SCORE: 0-UNK COMPREHENSION: COMPREHENSION: TYPE: Both COMPREHENSION - STEP 1: Does the patient require help to understand complex and abstract ideas (such as current events, finan ny, discharge planning, medical issues, relationships, etc)? No. COMPREHENSION - STEP 2: Does the patient need extra time, require an assistive device (such as glasses, hearing aids, or an a ugmentative communication system), OR does s/he have mild difficulty expressing complex and abstract ideas (including mild dysarthria or mild word-finding problems)? No. COMPREHENSION - SCORE: 7-IND EXPRESSION EXPRESSION: TYPE: Both EXPRESSION - STEP 1: Does the patient require help expressing complex and abstract ideas (such as current events, finances , discharge planning, medical issues, relationships, etc)? No. EXPRESSION - STEP 2: Does the patient need extra time, require an assistive device (such as augmentive communication syste m or a communication board), OR does s/he have mild difficulty expressing complex and abstract ideas (including mild dysarthria or mild word-find problems)? No. EXPRESSION - SCORE: 7-IND SOCIAL INTERACTION: SOCIAL INTERACTION - STEP 1: Does the patient require a helper to interact with others in social and therapeutic situations? No. SOCIAL INTERACTION - STEP 2: Does the patient need extra time in social situations, OR does s/he interact with staff, other patien ts, and family members ONLY in structured environments, OR does s/he require medication for social in teraction? No. SOCIAL INTERACTION - SCORE: 7-IND PROBLEM SOLVING: PROBLEM SOLVING - STEP 1: Does the patient need help to solve complex problems such as managing a checking account or confronti ng interpersonal problems? No. PROBLEM SOLVING - STEP 2: Does the patient require extra time to make decisions or solve problems, OR does s/he have slight dif ficulty reading, initiating, or self-correcting in unfamiliar situations? No. PROBLEM SOLVING - SCORE: 7-IND MEMORY: MEMORY - STEP 1: Does the patient need help to remember frequently encountered people, daily routines, and executing r equests? No. MEMORY - STEP 2: Does the patient have slight difficulty recognizing frequently encountered people, daily routines, or executing requests without the need for repetition or using self-initiated or environmental cues to remember? No. MEMORY - SCORE: 7-IND SIGNATURE PANEL: The following modified sections: Eating - Score, Grooming - Score, Bathing - Score, Dressing - Upper Body - Score, Dressing - Lower Body - Score, Toileting - Score, Transfers: Bed, Chair, Wheelchair - S core, Transfers: Toilet - Score, Transfers: Tub - Score, Transfers: Shower - Score, Comprehension - S core, Expression - Score, Social Interaction - Score, Problem Solving - Score, Memory - Score were [e lectronically] signed by Jeannette Benitez OT on FriJul 17 2018 16:53:24 T-0500 (Central Daylight T karli)
[2018-07-17] MEDS: DOCUSATE NA/SENNA CONC 1 TAB PO SCH (20:37)
[2018-07-17] MEDS: DIPHENHYDRAMINE 25 MG TAB/CAP PO PRN (21:34)
--- NOTE | 2018-07-18 00:25 | PN ---
Date of Progress Note: 07/17/2018 Subjective: Patient was seen this morning for followup. The patient was sitting in the wheelchair. No new complaints or problems reported by her. Objective: Vital Signs: Reviewed. HEENT Examination: Unremarkable. Lungs: Clear to auscultation. Heart: Heart sounds normal. Abdomen: Soft. Bowel sounds normal. No guarding, rigidity, tenderness, distention. Extremities: No leg edema. Laboratory Data: Hemoglobin 8.3. Impression: 1.Acute blood loss anemia. 2.Fracture, right patella. 3.Fracture, right shoulder. 4.Hypertension. 5.Chronic obstructive pulmonary disease. Plan: We will continue current medications. Continue Lovenox for DVT prophylaxis. Continue iron copeland pplement and current pain medications. I will see her tomorrow for followup. Physical therapy to be continued per guidance of Dr. Ybarra. GIA/MODL Voice ID: [id number] Report ID: [id number]
--- NOTE | 2018-07-18 02:30 | FAST ---
SHIFT START DATE/TIME: 07/17/2018 19:00 (CDT) SHIFT END DATE/TIME: 07/18/2018 07:00 (CDT) NAME MARS AUGUSTIN DATE OF : 1930 DATE OF ADMISSION: 07/14/2018 17:52 (CDT) PHONE: AGE: 88 [facility]# [id number] GENDER: Female ENCOUNTER PHYSICIAN: Dr. Anthony Ybarra M.D. ADMISSION DIAGNOSIS: - Orthopaedic Disorders 08 - Other Orthopaedic (08.9) Right Patella Fracture. Right Shoulder Avulsion Fracture. Left 1st Proximal Phalanx Fracture. EATING: Activity did not occur on this shift EATING - SCORE: 0-UNK GROOMING: Oral care Wash, rinse, and dry face Wash, rinse, and dry hands GROOMING - STEP 1: Does the patient require assistance when grooming? Yes. GROOMING - STEP 2: Does the patient require the assistance of a helper? Yes. GROOMING - STEP 3: How much assistance does the patient require from the helper? Incidental touching assistance from the helper while grooming GROOMING - SCORE: 4-MIN BATHING: Activity did not occur on this shift BATHING - SCORE: 0-UNK DRESSING - UPPER BODY: Patient is not dressing in public clothing ARTICLES SCORE Total number of steps: 0 DRESSING - UPPER BODY - SCORE: 0-UNK DRESSING - LOWER BODY: Patient is not dressing in public clothing ARTICLES SCORE Total number of steps: 0 DRESSING - LOWER BODY - SCORE: 0-UNK TOILETING: TOILETING - STEP 1: Does the patient require assistance with toileting? Yes. TOILETING - STEP 2: Does the patient require the assistance of a helper? Yes. TOILETING - STEP 3: How much assistance does the patient require from the helper? Hands-on assistance from the helper TOILETING - STEP 4: Of the 3 tasks: 1) Adjusting clothing prior to use, 2) Cleansing of perineal area, 3) Adjusting clot neda after use; How many tasks does the patient perform WITHOUT assistance of the helper? No tasks; h monica performs all three tasks TOILETING - SCORE: 1-DEP BLADDER MANAGEMENT: BLADDER MANAGEMENT - STEP 1: Does the patient control the bladder completely and intentionally without equipment or devices or med ications, and is always continent? No. BLADDER MANAGEMENT - STEP 2: Does the patient require the assistance of a helper? No, patient requires and independently uses an a ssistive device, such as a urinal, bedpan, bedside commode, catheter, absorbent pad, or collecting de vice BLADDER MANAGEMENT - SCORE: 6-LETI BOWEL MANAGEMENT: Activity did not occur on this shift BOWEL MANAGEMENT - SCORE: 7-IND TRANSFERS: BED, CHAIR, WHEELCHAIR: TRANSFERS: BED, CHAIR, WHEELCHAIR - STEP 1: Does the patient require assistance with bed, chair, or wheelchair transfers? Yes. TRANSFERS: BED, CHAIR, WHEELCHAIR - STEP 2: Does the patient require the assistance of a helper? Yes. TRANSFERS: BED, CHAIR, WHEELCHAIR - STEP 3: How much assistance does the patient require from the helper? Lifting of the legs TRANSFERS: BED, CHAIR, WHEELCHAIR - STEP 4: How many legs does the patient require the helper to lift? both legs TRANSFERS: BED, CHAIR, WHEELCHAIR - SCORE: 3-MOD TRANSFERS: TOILET: TRANSFERS: TOILET - STEP 1: Does the patient require assistance with toilet transfers? Yes. TRANSFERS: TOILET - STEP 2: Does the patient require the assistance of a helper? Yes. TRANSFERS: TOILET - STEP 3: How much assistance does the patient require from the helper? Patient performs half or more of the tr ansferring tasks TRANSFERS: TOILET - STEP 4: Does the patient need only incidental help such as contact guard or steadying during toilet transfer? No. Patient needs more than incidental help TRANSFERS: TOILET - SCORE: 3-MOD TRANSFERS: SHOWER: Activity did not occur on this shift TRANSFERS: SHOWER - SCORE: 0-UNK TRANSFERS: TUB: Activity did not occur on this shift TRANSFERS: TUB - SCORE: 0-UNK LOCOMOTION: WALK: Activity did not occur on this shift LOCOMOTION: WALK - SCORE: 0-UNK LOCOMOTION: WHEELCHAIR: Activity did not occur on this shift LOCOMOTION: WHEELCHAIR - SCORE: 0-UNK COMPREHENSION: COMPREHENSION: TYPE: Both COMPREHENSION - STEP 1: Does the patient require help to understand complex and abstract ideas (such as current events, finan ny, discharge planning, medical issues, relationships, etc)? No. COMPREHENSION - STEP 2: Does the patient need extra time, require an assistive device (such as glasses, hearing aids, or an a ugmentative communication system), OR does s/he have mild difficulty expressing complex and abstract ideas (including mild dysarthria or mild word-finding problems)? Yes. COMPREHENSION - SCORE: 6-LETI EXPRESSION EXPRESSION: TYPE: Both EXPRESSION - STEP 1: Does the patient require help expressing complex and abstract ideas (such as current events, finances , discharge planning, medical issues, relationships, etc)? No. EXPRESSION - STEP 2: Does the patient need extra time, require an assistive device (such as augmentive communication syste m or a communication board), OR does s/he have mild difficulty expressing complex and abstract ideas (including mild dysarthria or mild word-find problems)? No. EXPRESSION - SCORE: 7-IND SOCIAL INTERACTION: SOCIAL INTERACTION - STEP 1: Does the patient require a helper to interact with others in social and therapeutic situations? No. SOCIAL INTERACTION - STEP 2: Does the patient need extra time in social situations, OR does s/he interact with staff, other patien ts, and family members ONLY in structured environments, OR does s/he require medication for social in teraction? No. SOCIAL INTERACTION - SCORE: 7-IND PROBLEM SOLVING: PROBLEM SOLVING - STEP 1: Does the patient need help to solve complex problems such as managing a checking account or confronti ng interpersonal problems? No. PROBLEM SOLVING - STEP 2: Does the patient require extra time to make decisions or solve problems, OR does s/he have slight dif ficulty reading, initiating, or self-correcting in unfamiliar situations? No. PROBLEM SOLVING - SCORE: 7-IND MEMORY: MEMORY - STEP 1: Does the patient need help to remember frequently encountered people, daily routines, and executing r equests? No. MEMORY - STEP 2: Does the patient have slight difficulty recognizing frequently encountered people, daily routines, or executing requests without the need for repetition or using self-initiated or environmental cues to remember? No. MEMORY - SCORE: 7-IND
[2018-07-18] MEDS: HYDROCODONE/APAP 7.5/325 MG TAB PO PRN ×2 (06:11→16:22)
[2018-07-18] MEDS: PANTOPRAZOLE 40MG TABLET PO SCH (06:11)
[2018-07-18] MEDS: ENOXAPARIN 40 MG/0.4 ML SQ SCH (06:48)
[2018-07-18] MEDS: [UNRECOGNIZED DRUG - REMARK] NAS SCH (08:00)
[2018-07-18] MEDS: ALBUTEROL 2.5 MG/3 ML NEB SOL NEB SCH ×2 (08:07→20:16)
[2018-07-18] MEDS: Anoro Ellipta 1 PUFF IH SCH (08:31)
[2018-07-18] MEDS: LIDOCAINE 5% PATCH TOP SCH (08:32)
[2018-07-18] MEDS: MAGNESIUM OXIDE 400 MG TAB PO SCH ×2 (08:32→20:08)
[2018-07-18] MEDS: FERROUS SULFATE 325 MG TAB PO SCH (08:32)
[2018-07-18] MEDS: FE SULF/FA/VIT B COMP & C TAB PO SCH (08:32)
[2018-07-18] MEDS: GABAPENTIN 300 MG CAP PO SCH ×2 (08:32→20:08)
[2018-07-18] MEDS: FUROSEMIDE 20 MG TABLET PO SCH (08:33)
[2018-07-18] MEDS: ASPIRIN EC 81 MG TAB PO SCH (08:33)
[2018-07-18] MEDS: METOPROLOL XL 50 MG TAB PO SCH (08:35)
[2018-07-18] MEDS: PROMOD 30 ML DOSE PO SCH ×2 (08:38→20:07)
[2018-07-18] MEDS ORDERED: BISACODYL 10 MG RECTAL SUPP PR ONE (08:46)
[2018-07-18] MEDS: LOSARTAN POTASSIUM 50 MG TABLET PO SCH (10:21)
--- NOTE | 2018-07-18 11:08 | FAST ---
SHIFT START DATE/TIME: 07/18/2018 07:00 (CDT) SHIFT END DATE/TIME: 07/18/2018 19:00 (CDT) NAME MARS AUGUSTIN DATE OF : 1930 DATE OF ADMISSION: 07/14/2018 17:52 (CDT) PHONE: AGE: 88 [employer] [facility] [employer]# [id number] GENDER: Female ENCOUNTER PHYSICIAN: Dr. Anthony Ybarra M.D. ADMISSION DIAGNOSIS: - Orthopaedic Disorders 08 - Other Orthopaedic (08.9) Right Patella Fracture. Right Shoulder Avulsion Fracture. Left 1st Proximal Phalanx Fracture. EATING: EATING - STEP 1: Does the patient require assistance when eating? Yes. EATING - STEP 2: Does the patient require the assistance of a helper? Yes. EATING - STEP 3: Does the patient perform half or more of the eating tasks? Yes. EATING - STEP 4: Does the patient need only supervision, cuing, coaxing OR help to apply an orthosis OR help to cut fo od, open containers, pour liquids, or butter bread? Yes. EATING - SCORE: 5-SUP GROOMING: Comb/brush hair Oral care Wash, rinse, and dry face Wash, rinse, and dry hands GROOMING - STEP 1: Does the patient require assistance when grooming? Yes. GROOMING - STEP 2: Does the patient require the assistance of a helper? No. The patient only requires an assistive devic e, OR takes more than reasonable time to groom, OR there is a concern for safety as the patient groom s GROOMING - SCORE: 6-LETI BATHING: Activity did not occur on this shift BATHING - SCORE: 0-UNK DRESSING - UPPER BODY: Activity did not occur on this shift ARTICLES SCORE Total number of steps: 0 DRESSING - UPPER BODY - SCORE: 0-UNK DRESSING - LOWER BODY: Activity did not occur on this shift ARTICLES SCORE Total number of steps: 0 DRESSING - LOWER BODY - SCORE: 0-UNK TOILETING: TOILETING - STEP 1: Does the patient require assistance with toileting? Yes. TOILETING - STEP 2: Does the patient require the assistance of a helper? Yes. TOILETING - STEP 3: How much assistance does the patient require from the helper? Hands-on assistance from the helper TOILETING - STEP 4: Of the 3 tasks: 1) Adjusting clothing prior to use, 2) Cleansing of perineal area, 3) Adjusting clot neda after use; How many tasks does the patient perform WITHOUT assistance of the helper? Three tasks with steadying assistance from the helper TOILETING - SCORE: 4-MIN BLADDER MANAGEMENT: BLADDER MANAGEMENT - STEP 1: Does the patient control the bladder completely and intentionally without equipment or devices or med ications, and is always continent? No. BLADDER MANAGEMENT - STEP 2: Does the patient require the assistance of a helper? No, patient requires and independently uses an a ssistive device, such as a urinal, bedpan, bedside commode, catheter, absorbent pad, or collecting de vice BLADDER MANAGEMENT - SCORE: 6-LETI BOWEL MANAGEMENT: BOWEL MANAGEMENT - STEP 1: Does the patient control bowels completely and intentionally without equipment devices or medications AND is always continent? No. BOWEL MANAGEMENT - STEP 2: Does the patient require the assistance of a helper? No, patient requires and manages independently a n assistive device such as a bedpan, bedside commode, absorbent pad, incontinent device, or collectin g device BOWEL MANAGEMENT - SCORE: 6-LETI TRANSFERS: BED, CHAIR, WHEELCHAIR: TRANSFERS: BED, CHAIR, WHEELCHAIR - STEP 1: Does the patient require assistance with bed, chair, or wheelchair transfers? Yes. TRANSFERS: BED, CHAIR, WHEELCHAIR - STEP 2: Does the patient require the assistance of a helper? Yes. TRANSFERS: BED, CHAIR, WHEELCHAIR - STEP 3: How much assistance does the patient require from the helper? Steadying/guiding assistance TRANSFERS: BED, CHAIR, WHEELCHAIR - SCORE: 4-MIN TRANSFERS: TOILET: TRANSFERS: TOILET - STEP 1: Does the patient require assistance with toilet transfers? Yes. TRANSFERS: TOILET - STEP 2: Does the patient require the assistance of a helper? Yes. TRANSFERS: TOILET - STEP 3: How much assistance does the patient require from the helper? Patient performs half or more of the tr ansferring tasks TRANSFERS: TOILET - STEP 4: Does the patient need only incidental help such as contact guard or steadying during toilet transfer? Yes. TRANSFERS: TOILET - SCORE: 4-MIN TRANSFERS: SHOWER: Activity did not occur on this shift TRANSFERS: SHOWER - SCORE: 0-UNK TRANSFERS: TUB: Activity did not occur on this shift TRANSFERS: TUB - SCORE: 0-UNK LOCOMOTION: WALK: Activity did not occur on this shift LOCOMOTION: WALK - SCORE: 0-UNK LOCOMOTION: WHEELCHAIR: Activity did not occur on this shift LOCOMOTION: WHEELCHAIR - SCORE: 0-UNK COMPREHENSION: COMPREHENSION: TYPE: Both COMPREHENSION - STEP 1: Does the patient require help to understand complex and abstract ideas (such as current events, finan ny, discharge planning, medical issues, relationships, etc)? No. COMPREHENSION - STEP 2: Does the patient need extra time, require an assistive device (such as glasses, hearing aids, or an a ugmentative communication system), OR does s/he have mild difficulty expressing complex and abstract ideas (including mild dysarthria or mild word-finding problems)? Yes. COMPREHENSION - SCORE: 6-LETI EXPRESSION EXPRESSION: TYPE: Both EXPRESSION - STEP 1: Does the patient require help expressing complex and abstract ideas (such as current events, finances , discharge planning, medical issues, relationships, etc)? No. EXPRESSION - STEP 2: Does the patient need extra time, require an assistive device (such as augmentive communication syste m or a communication board), OR does s/he have mild difficulty expressing complex and abstract ideas (including mild dysarthria or mild word-find problems)? Yes. EXPRESSION - SCORE: 6-LETI SOCIAL INTERACTION: SOCIAL INTERACTION - STEP 1: Does the patient require a helper to interact with others in social and therapeutic situations? No. SOCIAL INTERACTION - STEP 2: Does the patient need extra time in social situations, OR does s/he interact with staff, other patien ts, and family members ONLY in structured environments, OR does s/he require medication for social in teraction? Yes, patient needs extra time SOCIAL INTERACTION - SCORE: 6-LETI PROBLEM SOLVING: PROBLEM SOLVING - STEP 1: Does the patient need help to solve complex problems such as managing a checking account or confronti ng interpersonal problems? No. PROBLEM SOLVING - STEP 2: Does the patient require extra time to make decisions or solve problems, OR does s/he have slight dif ficulty reading, initiating, or self-correcting in unfamiliar situations? Yes, patient needs extra ti me. PROBLEM SOLVING - SCORE: 6-LETI MEMORY: MEMORY - STEP 1: Does the patient need help to remember frequently encountered people, daily routines, and executing r equests? No. MEMORY - STEP 2: Does the patient have slight difficulty recognizing frequently encountered people, daily routines, or executing requests without the need for repetition or using self-initiated or environmental cues to remember? Yes. MEMORY - SCORE: 6-LETI SIGNATURE PANEL: The following modified sections: Eating - Score, Grooming - Score, Bathing - Score, Dressing - Upper Body - Score, Dressing - Lower Body - Score, Toileting - Score, Bladder Management - Score, Bowel Man agement - Score, Transfers: Bed, Chair, Wheelchair - Score, Transfers: Toilet - Score, Transfers: Nette wer - Score, Transfers: Tub - Score, Locomotion: Walk - Score, Locomotion: Wheelchair - Score, Compre hension - Score, Expression - Score, Social Interaction - Score, Problem Solving - Score, Memory - Sc ore were [electronically] signed by Lazarus Erazo on Sat Jul 18 2018 11:07:02 GMT-0500 (Central Daylight Time)
--- NOTE | 2018-07-18 13:24 | PN ---
Date of Progress Note: 07/18/2018 Subjective: The patient was seen this morning for followup. No new complaints or problems reported by her. She was sitting in chair. Denied any specific complaints. Pain is well controlled. No gentry sea. No vomiting. She has not had a bowel movement in last 3 days now. Does not have any abdominal pain. No nausea, no vomiting. Objective: Vital Signs: Reviewed. HEENT: Examination unremarkable. Lungs: Clear to auscultation. Heart: Sounds normal. Abdomen: Soft bowel sounds normal. No guarding, rigidity, tenderness, or distention. Extremities: No leg edema. Impression: 1.Constipation. 2.Right shoulder fracture. 3.Right patella fracture. 4.Chronic obstructive pulmonary disease. 5.Hypertension. Plan: Continue current medication, antihypertensive medication, and nebulizer treatment. We will go ahead and give Dulcolax rectal suppository x1 dose today. Continue stool softener and continue phys ical therapy per guidance of Dr. Ybarra. Her pain is well controlled with current pain medications . GIA/MODL Voice ID: [id number] Report ID: [id number]
[2018-07-18] MEDS: DOCUSATE NA/SENNA CONC 1 TAB PO SCH (20:09)
[2018-07-18] MEDS: DIPHENHYDRAMINE 25 MG TAB/CAP PO PRN (20:10)
[2018-07-18] MEDS: MAGNESIUM HYDROXIDE 8% 30 ML PO PRN (20:13)
--- NOTE | 2018-07-19 02:28 | FAST ---
SHIFT START DATE/TIME: 07/18/2018 19:00 (CDT) SHIFT END DATE/TIME: 07/19/2018 07:00 (CDT) NAME MARS AUGUSTIN DATE OF : 1930 DATE OF ADMISSION: 07/14/2018 17:52 (CDT) PHONE: AGE: 88 [facility]# [id number] GENDER: Female ENCOUNTER PHYSICIAN: Dr. Anthony Ybarra M.D. ADMISSION DIAGNOSIS: - Orthopaedic Disorders 08 - Other Orthopaedic (08.9) Right Patella Fracture. Right Shoulder Avulsion Fracture. Left 1st Proximal Phalanx Fracture. EATING: Activity did not occur on this shift EATING - SCORE: 0-UNK GROOMING: Oral care Wash, rinse, and dry face Wash, rinse, and dry hands GROOMING - STEP 1: Does the patient require assistance when grooming? Yes. GROOMING - STEP 2: Does the patient require the assistance of a helper? Yes. GROOMING - STEP 3: How much assistance does the patient require from the helper? Only prior equipment preparation/set up from the helper GROOMING - SCORE: 5-SUP BATHING: Activity did not occur on this shift BATHING - SCORE: 0-UNK DRESSING - UPPER BODY: Patient is not dressing in public clothing ARTICLES SCORE Total number of steps: 0 DRESSING - UPPER BODY - SCORE: 0-UNK DRESSING - LOWER BODY: Patient is not dressing in public clothing ARTICLES SCORE Total number of steps: 0 DRESSING - LOWER BODY - SCORE: 0-UNK TOILETING: TOILETING - STEP 1: Does the patient require assistance with toileting? Yes. TOILETING - STEP 2: Does the patient require the assistance of a helper? Yes. TOILETING - STEP 3: How much assistance does the patient require from the helper? Hands-on assistance from the helper TOILETING - STEP 4: Of the 3 tasks: 1) Adjusting clothing prior to use, 2) Cleansing of perineal area, 3) Adjusting clot neda after use; How many tasks does the patient perform WITHOUT assistance of the helper? No tasks; h monica performs all three tasks TOILETING - SCORE: 1-DEP BLADDER MANAGEMENT: BLADDER MANAGEMENT - STEP 1: Does the patient control the bladder completely and intentionally without equipment or devices or med ications, and is always continent? Yes. BLADDER MANAGEMENT - SCORE: 7-IND BOWEL MANAGEMENT: BOWEL MANAGEMENT - STEP 1: Does the patient control bowels completely and intentionally without equipment devices or medications AND is always continent? No. BOWEL MANAGEMENT - STEP 2: Does the patient require the assistance of a helper? Yes. BOWEL MANAGEMENT - STEP 3: How much assistance does the patient require from the helper? Patient requires moderate assistance - performs 50% to 74% of bowel management tasks BOWEL MANAGEMENT - SCORE: 3-MOD TRANSFERS: BED, CHAIR, WHEELCHAIR: TRANSFERS: BED, CHAIR, WHEELCHAIR - STEP 1: Does the patient require assistance with bed, chair, or wheelchair transfers? Yes. TRANSFERS: BED, CHAIR, WHEELCHAIR - STEP 2: Does the patient require the assistance of a helper? Yes. TRANSFERS: BED, CHAIR, WHEELCHAIR - STEP 3: How much assistance does the patient require from the helper? Lifting of the legs TRANSFERS: BED, CHAIR, WHEELCHAIR - STEP 4: How many legs does the patient require the helper to lift? both legs TRANSFERS: BED, CHAIR, WHEELCHAIR - SCORE: 3-MOD TRANSFERS: TOILET: TRANSFERS: TOILET - STEP 1: Does the patient require assistance with toilet transfers? Yes. TRANSFERS: TOILET - STEP 2: Does the patient require the assistance of a helper? Yes. TRANSFERS: TOILET - STEP 3: How much assistance does the patient require from the helper? Patient performs half or more of the tr ansferring tasks TRANSFERS: TOILET - STEP 4: Does the patient need only incidental help such as contact guard or steadying during toilet transfer? No. Patient needs more than incidental help TRANSFERS: TOILET - SCORE: 3-MOD TRANSFERS: SHOWER: Activity did not occur on this shift TRANSFERS: SHOWER - SCORE: 0-UNK TRANSFERS: TUB: Activity did not occur on this shift TRANSFERS: TUB - SCORE: 0-UNK LOCOMOTION: WALK: Activity did not occur on this shift LOCOMOTION: WALK - SCORE: 0-UNK LOCOMOTION: WHEELCHAIR: Activity did not occur on this shift LOCOMOTION: WHEELCHAIR - SCORE: 0-UNK COMPREHENSION: COMPREHENSION: TYPE: Both COMPREHENSION - STEP 1: Does the patient require help to understand complex and abstract ideas (such as current events, finan ny, discharge planning, medical issues, relationships, etc)? No. COMPREHENSION - STEP 2: Does the patient need extra time, require an assistive device (such as glasses, hearing aids, or an a ugmentative communication system), OR does s/he have mild difficulty expressing complex and abstract ideas (including mild dysarthria or mild word-finding problems)? No. COMPREHENSION - SCORE: 7-IND EXPRESSION EXPRESSION: TYPE: Both EXPRESSION - STEP 1: Does the patient require help expressing complex and abstract ideas (such as current events, finances , discharge planning, medical issues, relationships, etc)? No. EXPRESSION - STEP 2: Does the patient need extra time, require an assistive device (such as augmentive communication syste m or a communication board), OR does s/he have mild difficulty expressing complex and abstract ideas (including mild dysarthria or mild word-find problems)? No. EXPRESSION - SCORE: 7-IND SOCIAL INTERACTION: SOCIAL INTERACTION - STEP 1: Does the patient require a helper to interact with others in social and therapeutic situations? No. SOCIAL INTERACTION - STEP 2: Does the patient need extra time in social situations, OR does s/he interact with staff, other patien ts, and family members ONLY in structured environments, OR does s/he require medication for social in teraction? No. SOCIAL INTERACTION - SCORE: 7-IND PROBLEM SOLVING: PROBLEM SOLVING - STEP 1: Does the patient need help to solve complex problems such as managing a checking account or confronti ng interpersonal problems? No. PROBLEM SOLVING - STEP 2: Does the patient require extra time to make decisions or solve problems, OR does s/he have slight dif ficulty reading, initiating, or self-correcting in unfamiliar situations? No. PROBLEM SOLVING - SCORE: 7-IND MEMORY: MEMORY - STEP 1: Does the patient need help to remember frequently encountered people, daily routines, and executing r equests? No. MEMORY - STEP 2: Does the patient have slight difficulty recognizing frequently encountered people, daily routines, or executing requests without the need for repetition or using self-initiated or environmental cues to remember? No. MEMORY - SCORE: 7-IND
[2018-07-19] MEDS: [UNRECOGNIZED DRUG - REMARK] NAS SCH (07:11)
[2018-07-19] MEDS: Anoro Ellipta 1 PUFF IH SCH (07:11)
[2018-07-19] MEDS: LIDOCAINE 5% PATCH TOP SCH ×2 (07:18→07:21)
[2018-07-19] MEDS: ENOXAPARIN 40 MG/0.4 ML SQ SCH (07:18)
[2018-07-19] MEDS: ALBUTEROL 2.5 MG/3 ML NEB SOL NEB SCH ×2 (07:32→20:00)
[2018-07-19] MEDS: PANTOPRAZOLE 40MG TABLET PO SCH (07:46)
[2018-07-19] MEDS: HYDROCODONE/APAP 7.5/325 MG TAB PO PRN ×2 (07:47→14:06)
[2018-07-19] MEDS: METOPROLOL XL 50 MG TAB PO SCH (08:00)
[2018-07-19] MEDS: LOSARTAN POTASSIUM 50 MG TABLET PO SCH (08:00)
[2018-07-19] MEDS: MAGNESIUM OXIDE 400 MG TAB PO SCH ×2 (08:13→20:15)
[2018-07-19] MEDS: GABAPENTIN 300 MG CAP PO SCH ×2 (08:13→20:15)
[2018-07-19] MEDS: FE SULF/FA/VIT B COMP & C TAB PO SCH (08:13)
[2018-07-19] MEDS: ASPIRIN EC 81 MG TAB PO SCH (08:13)
[2018-07-19] MEDS: FERROUS SULFATE 325 MG TAB PO SCH (08:13)
[2018-07-19] MEDS: FUROSEMIDE 20 MG TABLET PO SCH (08:14)
[2018-07-19] MEDS: PROMOD 30 ML DOSE PO SCH ×2 (08:15→20:15)
[2018-07-19] MEDS: TRAMADOL HCL 50 MG TAB PO PRN (10:58)
[2018-07-19] MEDS ORDERED: POLYETHYL GLY 3350 17 GM/DOSE PO ONE (11:00)
[2018-07-19] MEDS ORDERED: BISACODYL 10 MG RECTAL SUPP PR ONE (11:00)
--- NOTE | 2018-07-19 11:33 | FAST ---
SHIFT START DATE/TIME: 07/19/2018 07:00 (CDT) SHIFT END DATE/TIME: 07/19/2018 19:00 (CDT) NAME MARS AUGUSTIN DATE OF : 1930 DATE OF ADMISSION: 07/14/2018 17:52 (CDT) PHONE: AGE: 88 [facility]# [id number] GENDER: Female ENCOUNTER PHYSICIAN: Dr. Anthony Ybarra M.D. ADMISSION DIAGNOSIS: - Orthopaedic Disorders 08 - Other Orthopaedic (08.9) Right Patella Fracture. Right Shoulder Avulsion Fracture. Left 1st Proximal Phalanx Fracture. EATING: EATING - STEP 1: Does the patient require assistance when eating? Yes. EATING - STEP 2: Does the patient require the assistance of a helper? Yes. EATING - STEP 3: Does the patient perform half or more of the eating tasks? Yes. EATING - STEP 4: Does the patient need only supervision, cuing, coaxing OR help to apply an orthosis OR help to cut fo od, open containers, pour liquids, or butter bread? Yes. EATING - SCORE: 5-SUP GROOMING: Comb/brush hair Oral care Wash, rinse, and dry face Wash, rinse, and dry hands GROOMING - STEP 1: Does the patient require assistance when grooming? Yes. GROOMING - STEP 2: Does the patient require the assistance of a helper? Yes. GROOMING - STEP 3: How much assistance does the patient require from the helper? Cuing, coaxing, instructions, or encour agement for completion of grooming GROOMING - SCORE: 5-SUP BATHING: Activity did not occur on this shift BATHING - SCORE: 0-UNK DRESSING - UPPER BODY: Activity did not occur on this shift ARTICLES SCORE Total number of steps: 0 DRESSING - UPPER BODY - SCORE: 0-UNK DRESSING - LOWER BODY: Activity did not occur on this shift ARTICLES SCORE Total number of steps: 0 DRESSING - LOWER BODY - SCORE: 0-UNK TOILETING: TOILETING - STEP 1: Does the patient require assistance with toileting? Yes. TOILETING - STEP 2: Does the patient require the assistance of a helper? Yes. TOILETING - STEP 3: How much assistance does the patient require from the helper? Hands-on assistance from the helper TOILETING - STEP 4: Of the 3 tasks: 1) Adjusting clothing prior to use, 2) Cleansing of perineal area, 3) Adjusting clot neda after use; How many tasks does the patient perform WITHOUT assistance of the helper? One task TOILETING - SCORE: 2-MAX BLADDER MANAGEMENT: BLADDER MANAGEMENT - STEP 1: Does the patient control the bladder completely and intentionally without equipment or devices or med ications, and is always continent? No. BLADDER MANAGEMENT - STEP 2: Does the patient require the assistance of a helper? No, patient requires and independently uses an a ssistive device, such as a urinal, bedpan, bedside commode, catheter, absorbent pad, or collecting de vice BLADDER MANAGEMENT - SCORE: 6-LETI BOWEL MANAGEMENT: Activity did not occur on this shift BOWEL MANAGEMENT - SCORE: 7-IND TRANSFERS: BED, CHAIR, WHEELCHAIR: TRANSFERS: BED, CHAIR, WHEELCHAIR - STEP 1: Does the patient require assistance with bed, chair, or wheelchair transfers? Yes. TRANSFERS: BED, CHAIR, WHEELCHAIR - STEP 2: Does the patient require the assistance of a helper? Yes. TRANSFERS: BED, CHAIR, WHEELCHAIR - STEP 3: How much assistance does the patient require from the helper? Lifting of the patient TRANSFERS: BED, CHAIR, WHEELCHAIR - STEP 4: Does the helper lift the patient ONLY up? ONLY down? Up AND Down? ONLY up. TRANSFERS: BED, CHAIR, WHEELCHAIR - SCORE: 3-MOD TRANSFERS: TOILET: TRANSFERS: TOILET - STEP 1: Does the patient require assistance with toilet transfers? Yes. TRANSFERS: TOILET - STEP 2: Does the patient require the assistance of a helper? Yes. TRANSFERS: TOILET - STEP 3: How much assistance does the patient require from the helper? Patient performs half or more of the tr ansferring tasks TRANSFERS: TOILET - STEP 4: Does the patient need only incidental help such as contact guard or steadying during toilet transfer? No. Patient needs more than incidental help TRANSFERS: TOILET - SCORE: 3-MOD TRANSFERS: SHOWER: Activity did not occur on this shift TRANSFERS: SHOWER - SCORE: 0-UNK TRANSFERS: TUB: Activity did not occur on this shift TRANSFERS: TUB - SCORE: 0-UNK LOCOMOTION: WALK: Activity did not occur on this shift LOCOMOTION: WALK - SCORE: 0-UNK LOCOMOTION: WHEELCHAIR: Activity did not occur on this shift LOCOMOTION: WHEELCHAIR - SCORE: 0-UNK COMPREHENSION: COMPREHENSION: TYPE: Both COMPREHENSION - STEP 1: Does the patient require help to understand complex and abstract ideas (such as current events, finan ny, discharge planning, medical issues, relationships, etc)? No. COMPREHENSION - STEP 2: Does the patient need extra time, require an assistive device (such as glasses, hearing aids, or an a ugmentative communication system), OR does s/he have mild difficulty expressing complex and abstract ideas (including mild dysarthria or mild word-finding problems)? Yes. COMPREHENSION - SCORE: 6-LETI EXPRESSION EXPRESSION: TYPE: Both EXPRESSION - STEP 1: Does the patient require help expressing complex and abstract ideas (such as current events, finances , discharge planning, medical issues, relationships, etc)? No. EXPRESSION - STEP 2: Does the patient need extra time, require an assistive device (such as augmentive communication syste m or a communication board), OR does s/he have mild difficulty expressing complex and abstract ideas (including mild dysarthria or mild word-find problems)? Yes. EXPRESSION - SCORE: 6-LETI SOCIAL INTERACTION: SOCIAL INTERACTION - STEP 1: Does the patient require a helper to interact with others in social and therapeutic situations? No. SOCIAL INTERACTION - STEP 2: Does the patient need extra time in social situations, OR does s/he interact with staff, other patien ts, and family members ONLY in structured environments, OR does s/he require medication for social in teraction? Yes, patient needs extra time SOCIAL INTERACTION - SCORE: 6-LETI PROBLEM SOLVING: PROBLEM SOLVING - STEP 1: Does the patient need help to solve complex problems such as managing a checking account or confronti ng interpersonal problems? No. PROBLEM SOLVING - STEP 2: Does the patient require extra time to make decisions or solve problems, OR does s/he have slight dif ficulty reading, initiating, or self-correcting in unfamiliar situations? Yes, patient needs extra ti me. PROBLEM SOLVING - SCORE: 6-LETI MEMORY: MEMORY - STEP 1: Does the patient need help to remember frequently encountered people, daily routines, and executing r equests? No. MEMORY - STEP 2: Does the patient have slight difficulty recognizing frequently encountered people, daily routines, or executing requests without the need for repetition or using self-initiated or environmental cues to remember? Yes. MEMORY - SCORE: 6-LETI SIGNATURE PANEL: The following modified sections: Eating - Score, Grooming - Score, Bathing - Score, Dressing - Upper Body - Score, Dressing - Lower Body - Score, Toileting - Score, Bladder Management - Score, Bowel Man agement - Score, Transfers: Bed, Chair, Wheelchair - Score, Transfers: Toilet - Score, Transfers: Nette wer - Score, Transfers: Tub - Score, Locomotion: Walk - Score, Locomotion: Wheelchair - Score, Compre hension - Score, Expression - Score, Social Interaction - Score, Problem Solving - Score, Memory - Sc ore were [electronically] signed by Lazarus Erazo on FriJul 19 2018 11:32:51 GMT-0500 (Central Daylight Time)
--- NOTE | 2018-07-19 16:15 | PN ---
Date of Progress Note: 07/19/2018 Subjective: The patient was seen this morning for followup. No new complaints. Problems reported b y the patient. She was lying in bed, not in distress. She did report having bowel movement yesterda y after Dulcolax rectal suppository and milk of magnesia, and she believes she had 2 bowel movement, but it was hard stool. Denies any abdominal pain, nausea, vomiting. Objective: Vital Signs: Reviewed. HEENT: Examination unremarkable. Lungs: Clear to auscultation. Heart: Sounds normal. Abdomen: Soft. Bowel sounds normal. No guarding, rigidity, tenderness, or distention. Extremities: No leg edema. Impression: 1.Constipation. 2.Fracture, right patella. 3.Fracture, right shoulder. 4.Hypertension. 5.Chronic obstructive pulmonary disease. 6.Anemia due to acute blood loss. Plan: We will continue current medication. Continue metoprolol and nebulizer treatment. Continue c urrent pain medication, which has helped to control her pain very well. For constipation, we will gi ve another Dulcolax rectal suppository and give MiraLAX 1 dose today as per order. I will see her to [facility] for followup. GIA/MODL Voice ID: [id number] Report ID: [id number]
[2018-07-19] MEDS: DIPHENHYDRAMINE 25 MG TAB/CAP PO PRN (20:15)
[2018-07-19] MEDS: DOCUSATE NA/SENNA CONC 1 TAB PO SCH (20:15)
[2018-07-19] MEDS: MAGNESIUM HYDROXIDE 8% 30 ML PO PRN (22:13)
--- NOTE | 2018-07-20 02:28 | FAST ---
SHIFT START DATE/TIME: 07/19/2018 19:00 (CDT) SHIFT END DATE/TIME: 07/20/2018 07:00 (CDT) NAME MARS AUGUSTIN DATE OF : 1930 DATE OF ADMISSION: 07/14/2018 17:52 (CDT) PHONE: AGE: 88 [facility]# [id number] GENDER: Female ENCOUNTER PHYSICIAN: Dr. Anthony Ybarra M.D. ADMISSION DIAGNOSIS: - Orthopaedic Disorders 08 - Other Orthopaedic (08.9) Right Patella Fracture. Right Shoulder Avulsion Fracture. Left 1st Proximal Phalanx Fracture. EATING: Activity did not occur on this shift EATING - SCORE: 0-UNK GROOMING: Activity did not occur on this shift GROOMING - SCORE: 0-UNK BATHING: Activity did not occur on this shift BATHING - SCORE: 0-UNK DRESSING - UPPER BODY: Patient is not dressing in public clothing ARTICLES SCORE Total number of steps: 0 DRESSING - UPPER BODY - SCORE: 0-UNK DRESSING - LOWER BODY: Patient is not dressing in public clothing ARTICLES SCORE Total number of steps: 0 DRESSING - LOWER BODY - SCORE: 0-UNK TOILETING: TOILETING - STEP 1: Does the patient require assistance with toileting? Yes. TOILETING - STEP 2: Does the patient require the assistance of a helper? Yes. TOILETING - STEP 3: How much assistance does the patient require from the helper? Hands-on assistance from the helper TOILETING - STEP 4: Of the 3 tasks: 1) Adjusting clothing prior to use, 2) Cleansing of perineal area, 3) Adjusting clot neda after use; How many tasks does the patient perform WITHOUT assistance of the helper? One task TOILETING - SCORE: 2-MAX BLADDER MANAGEMENT: BLADDER MANAGEMENT - STEP 1: Does the patient control the bladder completely and intentionally without equipment or devices or med ications, and is always continent? Yes. BLADDER MANAGEMENT - SCORE: 7-IND BOWEL MANAGEMENT: BOWEL MANAGEMENT - STEP 1: Does the patient control bowels completely and intentionally without equipment devices or medications AND is always continent? No. BOWEL MANAGEMENT - STEP 2: Does the patient require the assistance of a helper? No, patient requires medication for control such as stool softeners, suppositories, laxatives, enemas, or OTC medications BOWEL MANAGEMENT - SCORE: 6-LETI TRANSFERS: BED, CHAIR, WHEELCHAIR: TRANSFERS: BED, CHAIR, WHEELCHAIR - STEP 1: Does the patient require assistance with bed, chair, or wheelchair transfers? Yes. TRANSFERS: BED, CHAIR, WHEELCHAIR - STEP 2: Does the patient require the assistance of a helper? Yes. TRANSFERS: BED, CHAIR, WHEELCHAIR - STEP 3: How much assistance does the patient require from the helper? Lifting of the patient TRANSFERS: BED, CHAIR, WHEELCHAIR - STEP 4: Does the helper lift the patient ONLY up? ONLY down? Up AND Down? Up AND Down. TRANSFERS: BED, CHAIR, WHEELCHAIR - SCORE: 2-MAX TRANSFERS: TOILET: TRANSFERS: TOILET - STEP 1: Does the patient require assistance with toilet transfers? Yes. TRANSFERS: TOILET - STEP 2: Does the patient require the assistance of a helper? Yes. TRANSFERS: TOILET - STEP 3: How much assistance does the patient require from the helper? Patient performs half or more of the tr ansferring tasks TRANSFERS: TOILET - STEP 4: Does the patient need only incidental help such as contact guard or steadying during toilet transfer? No. Patient needs more than incidental help TRANSFERS: TOILET - SCORE: 3-MOD TRANSFERS: SHOWER: Activity did not occur on this shift TRANSFERS: SHOWER - SCORE: 0-UNK TRANSFERS: TUB: Activity did not occur on this shift TRANSFERS: TUB - SCORE: 0-UNK LOCOMOTION: WALK: Activity did not occur on this shift LOCOMOTION: WALK - SCORE: 0-UNK LOCOMOTION: WHEELCHAIR: Activity did not occur on this shift LOCOMOTION: WHEELCHAIR - SCORE: 0-UNK COMPREHENSION: COMPREHENSION: TYPE: Both COMPREHENSION - STEP 1: Does the patient require help to understand complex and abstract ideas (such as current events, finan ny, discharge planning, medical issues, relationships, etc)? No. COMPREHENSION - STEP 2: Does the patient need extra time, require an assistive device (such as glasses, hearing aids, or an a ugmentative communication system), OR does s/he have mild difficulty expressing complex and abstract ideas (including mild dysarthria or mild word-finding problems)? Yes. COMPREHENSION - SCORE: 6-LETI EXPRESSION EXPRESSION: TYPE: Both EXPRESSION - STEP 1: Does the patient require help expressing complex and abstract ideas (such as current events, finances , discharge planning, medical issues, relationships, etc)? No. EXPRESSION - STEP 2: Does the patient need extra time, require an assistive device (such as augmentive communication syste m or a communication board), OR does s/he have mild difficulty expressing complex and abstract ideas (including mild dysarthria or mild word-find problems)? No. EXPRESSION - SCORE: 7-IND SOCIAL INTERACTION: SOCIAL INTERACTION - STEP 1: Does the patient require a helper to interact with others in social and therapeutic situations? No. SOCIAL INTERACTION - STEP 2: Does the patient need extra time in social situations, OR does s/he interact with staff, other patien ts, and family members ONLY in structured environments, OR does s/he require medication for social in teraction? Yes, patient needs extra time SOCIAL INTERACTION - SCORE: 6-LETI PROBLEM SOLVING: PROBLEM SOLVING - STEP 1: Does the patient need help to solve complex problems such as managing a checking account or confronti ng interpersonal problems? No. PROBLEM SOLVING - STEP 2: Does the patient require extra time to make decisions or solve problems, OR does s/he have slight dif ficulty reading, initiating, or self-correcting in unfamiliar situations? Yes, patient needs extra ti me. PROBLEM SOLVING - SCORE: 6-LETI MEMORY: MEMORY - STEP 1: Does the patient need help to remember frequently encountered people, daily routines, and executing r equests? No. MEMORY - STEP 2: Does the patient have slight difficulty recognizing frequently encountered people, daily routines, or executing requests without the need for repetition or using self-initiated or environmental cues to remember? No. MEMORY - SCORE: 7-IND SIGNATURE PANEL: The following modified sections: Eating - Score, Grooming - Score, Dressing - Upper Body - Score, Tray ssing - Lower Body - Score, Toileting - Score, Bladder Management - Score, Bowel Management - Score, Transfers: Bed, Chair, Wheelchair - Score, Transfers: Toilet - Score, Transfers: Shower - Score, García sfers: Tub - Score, Locomotion: Walk - Score, Locomotion: Wheelchair - Score, Comprehension - Score, Expression - Score, Social Interaction - Score, Problem Solving - Score, Memory - Score were [electro nically] signed by Julita Jacobs CNA on FriJul 20 2018 02:27:16 GMT-0500 (Central Daylight Time)
[2018-07-20] MEDS: HYDROCODONE/APAP 7.5/325 MG TAB PO PRN ×2 (06:58→12:14)
[2018-07-20] MEDS: ENOXAPARIN 40 MG/0.4 ML SQ SCH (06:59)
[2018-07-20] MEDS: PANTOPRAZOLE 40MG TABLET PO SCH (06:59)
[2018-07-20] MEDS: ALBUTEROL 2.5 MG/3 ML NEB SOL NEB SCH ×2 (07:41→22:57)
[2018-07-20] MEDS: LIDOCAINE 5% PATCH TOP SCH ×3 (08:00→10:24)
[2018-07-20] MEDS: LOSARTAN POTASSIUM 50 MG TABLET PO SCH (08:00)
[2018-07-20] MEDS: METOPROLOL XL 50 MG TAB PO SCH (08:00)
[2018-07-20] MEDS: [UNRECOGNIZED DRUG - REMARK] NAS SCH (08:22)
[2018-07-20] MEDS: Anoro Ellipta 1 PUFF IH SCH (08:23)
[2018-07-20] MEDS: GABAPENTIN 300 MG CAP PO SCH ×2 (08:24→20:16)
[2018-07-20] MEDS: FE SULF/FA/VIT B COMP & C TAB PO SCH (08:24)
[2018-07-20] MEDS: FERROUS SULFATE 325 MG TAB PO SCH (08:24)
[2018-07-20] MEDS: MAGNESIUM OXIDE 400 MG TAB PO SCH ×2 (08:24→20:16)
[2018-07-20] MEDS: FUROSEMIDE 20 MG TABLET PO SCH (08:25)
[2018-07-20] MEDS: ASPIRIN EC 81 MG TAB PO SCH (08:25)
[2018-07-20] MEDS: PROMOD 30 ML DOSE PO SCH ×2 (08:28→20:16)
[2018-07-20] MEDS: TRAMADOL HCL 50 MG TAB PO PRN ×2 (11:21→15:43)
[2018-07-20] MEDS ORDERED: TRAMADOL HCL 50 MG TAB PO PRN (15:20)
--- NOTE | 2018-07-20 16:44 | FAST ---
ENCOUNTER DATE AND TIME: 07/20/2018 08:00 (CDT) NAME MARS AUGUSTIN DATE OF : 1930 DATE OF ADMISSION: 07/14/2018 17:52 (CDT) PHONE: AGE: 88 N# [id number] GENDER: Female ENCOUNTER PHYSICIAN: Dr. Anthony Ybarra M.D. ADMISSION DIAGNOSIS: - Orthopaedic Disorders 08 - Other Orthopaedic (08.9) Right Patella Fracture. Right Shoulder Avulsion Fracture. Left 1st Proximal Phalanx Fracture. EATING: Activity did not occur on this shift EATING - SCORE: 0-UNK GROOMING: Activity did not occur on this shift GROOMING - SCORE: 0-UNK BATHING: Activity did not occur on this shift BATHING - SCORE: 0-UNK DRESSING - UPPER BODY: Activity did not occur on this shift Patient is not dressing in public clothing ARTICLES SCORE Total number of steps: 0 DRESSING - UPPER BODY - SCORE: 0-UNK DRESSING - LOWER BODY: Activity did not occur on this shift Patient is not dressing in public clothing ARTICLES SCORE Total number of steps: 0 DRESSING - LOWER BODY - SCORE: 0-UNK TOILETING: Activity did not occur on this shift TOILETING - SCORE: 0-UNK BLADDER MANAGEMENT: Activity did not occur on this shift BLADDER MANAGEMENT - SCORE: 7-IND BOWEL MANAGEMENT: Activity did not occur on this shift BOWEL MANAGEMENT - SCORE: 7-IND TRANSFERS: BED, CHAIR, WHEELCHAIR: TRANSFERS: BED, CHAIR, WHEELCHAIR - STEP 1: Does the patient require assistance with bed, chair, or wheelchair transfers? Yes. TRANSFERS: BED, CHAIR, WHEELCHAIR - STEP 2: Does the patient require the assistance of a helper? Yes. TRANSFERS: BED, CHAIR, WHEELCHAIR - STEP 3: How much assistance does the patient require from the helper? Lifting of the patient TRANSFERS: BED, CHAIR, WHEELCHAIR - STEP 4: Does the helper lift the patient ONLY up? ONLY down? Up AND Down? ONLY up. TRANSFERS: BED, CHAIR, WHEELCHAIR - SCORE: 3-MOD TRANSFERS: TOILET: Activity did not occur on this shift TRANSFERS: TOILET - SCORE: 0-UNK TRANSFERS: SHOWER: Activity did not occur on this shift TRANSFERS: SHOWER - SCORE: 0-UNK TRANSFERS: TUB: Activity did not occur on this shift TRANSFERS: TUB - SCORE: 0-UNK LOCOMOTION: WALK: Patient walks less than 50 feet LOCOMOTION: WALK - SCORE: 1-DEP LOCOMOTION: WHEELCHAIR: LOCOMOTION: WHEELCHAIR - STEP 1: Does the patient need help to go 150 feet in a wheelchair? Yes. LOCOMOTION: WHEELCHAIR - STEP 2: How much assistance does the patient need from the helper? Patient goes less than 150 feet - but more than 50 feet - with the assistance of only one helper LOCOMOTION: WHEELCHAIR - SCORE: 2-MAX LOCOMOTION: STAIRS: Activity did not occur on this shift LOCOMOTION: STAIRS - SCORE: 0-UNK COMPREHENSION: COMPREHENSION - SCORE: 0-UNK EXPRESSION EXPRESSION - SCORE: 0-UNK SOCIAL INTERACTION: SOCIAL INTERACTION - SCORE: 0-UNK PROBLEM SOLVING: PROBLEM SOLVING - SCORE: 0-UNK MEMORY: MEMORY - SCORE: 0-UNK SIGNATURE PANEL: The following modified sections: Transfers: Bed, Chair, Wheelchair - Score, Transfers: Toilet - Score , Locomotion: Walk - Score, Locomotion: Wheelchair - Score, Locomotion: Stairs - Score were [electron ically] signed by Scott Moore PT on FriJul 20 2018 16:42:59 T-0500 (Central Daylight Time)
[2018-07-20] MEDS: DOCUSATE NA/SENNA CONC 1 TAB PO SCH (20:16)
[2018-07-20] MEDS: DIPHENHYDRAMINE 25 MG TAB/CAP PO PRN (21:42)
--- NOTE | 2018-07-21 00:35 | PN ---
Date of Progress Note: 07/20/2018 Subjective: The patient was seen this morning for followup. No new complaints or problems reported by patient. Sitting in wheelchair, not in any distress. Had a bowel movement yesterday after MiraLa x and Dulcolax rectal suppository, and she feels much better after having bowel movement 2 days in a row with laxatives ordered. Her pain is under good control. Objective: Vital Signs: Reviewed. HEENT: Unremarkable. Lungs: Clear to auscultation. Heart: Sounds normal. Abdomen: Soft. Bowel sounds normal. No guarding, rigidity, tenderness, or distention. Extremities: No leg edema. Impression: 1.Fracture, right shoulder. 2.Fracture, right patella. 3.Chronic obstructive pulmonary disease. 4.Hypertension. 5.Constipation. Plan: We will continue current medications. Continue current stool softener, laxative, antihyperten sive medication, and pain medications were ordered. I will see her tomorrow for followup. GIA/KAREEM Voice ID: [id number] Report ID: [id number]
--- NOTE | 2018-07-21 02:30 | FAST ---
SHIFT START DATE/TIME: 07/20/2018 19:00 (CDT) SHIFT END DATE/TIME: 07/21/2018 07:00 (CDT) NAME MARS AUGUSTIN DATE OF : 1930 DATE OF ADMISSION: 07/14/2018 17:52 (CDT) PHONE: AGE: 88 [facility]# [id number] GENDER: Female ENCOUNTER PHYSICIAN: Dr. Anthony Ybarra M.D. ADMISSION DIAGNOSIS: - Orthopaedic Disorders 08 - Other Orthopaedic (08.9) Right Patella Fracture. Right Shoulder Avulsion Fracture. Left 1st Proximal Phalanx Fracture. EATING: Activity did not occur on this shift EATING - SCORE: 0-UNK GROOMING: Activity did not occur on this shift GROOMING - SCORE: 0-UNK BATHING: Activity did not occur on this shift BATHING - SCORE: 0-UNK DRESSING - UPPER BODY: Patient is not dressing in public clothing ARTICLES SCORE Total number of steps: 0 DRESSING - UPPER BODY - SCORE: 0-UNK DRESSING - LOWER BODY: Patient is not dressing in public clothing ARTICLES SCORE Total number of steps: 0 DRESSING - LOWER BODY - SCORE: 0-UNK TOILETING: TOILETING - STEP 1: Does the patient require assistance with toileting? Yes. TOILETING - STEP 2: Does the patient require the assistance of a helper? Yes. TOILETING - STEP 3: How much assistance does the patient require from the helper? Hands-on assistance from the helper TOILETING - STEP 4: Of the 3 tasks: 1) Adjusting clothing prior to use, 2) Cleansing of perineal area, 3) Adjusting clot neda after use; How many tasks does the patient perform WITHOUT assistance of the helper? One task TOILETING - SCORE: 2-MAX BLADDER MANAGEMENT: BLADDER MANAGEMENT - STEP 1: Does the patient control the bladder completely and intentionally without equipment or devices or med ications, and is always continent? No. BLADDER MANAGEMENT - STEP 2: Does the patient require the assistance of a helper? Yes. BLADDER MANAGEMENT - STEP 3: How much assistance does the patient require from the helper? Only set-up of equipment - such as plac ing it within reach of the patient or emptying a device - to maintain either satisfactory voiding pat tern or managing an external device, such as an absorbent pad, ileal device, or catheter BLADDER MANAGEMENT - SCORE: 5-SUP BOWEL MANAGEMENT: Activity did not occur on this shift BOWEL MANAGEMENT - SCORE: 7-IND TRANSFERS: BED, CHAIR, WHEELCHAIR: TRANSFERS: BED, CHAIR, WHEELCHAIR - STEP 1: Does the patient require assistance with bed, chair, or wheelchair transfers? Yes. TRANSFERS: BED, CHAIR, WHEELCHAIR - STEP 2: Does the patient require the assistance of a helper? Yes. TRANSFERS: BED, CHAIR, WHEELCHAIR - STEP 3: How much assistance does the patient require from the helper? Lifting of the patient TRANSFERS: BED, CHAIR, WHEELCHAIR - STEP 4: Does the helper lift the patient ONLY up? ONLY down? Up AND Down? Up AND Down. TRANSFERS: BED, CHAIR, WHEELCHAIR - SCORE: 2-MAX TRANSFERS: TOILET: TRANSFERS: TOILET - STEP 1: Does the patient require assistance with toilet transfers? Yes. TRANSFERS: TOILET - STEP 2: Does the patient require the assistance of a helper? Yes. TRANSFERS: TOILET - STEP 3: How much assistance does the patient require from the helper? Patient performs half or more of the tr ansferring tasks TRANSFERS: TOILET - STEP 4: Does the patient need only incidental help such as contact guard or steadying during toilet transfer? No. Patient needs more than incidental help TRANSFERS: TOILET - SCORE: 3-MOD TRANSFERS: SHOWER: Activity did not occur on this shift TRANSFERS: SHOWER - SCORE: 0-UNK TRANSFERS: TUB: Activity did not occur on this shift TRANSFERS: TUB - SCORE: 0-UNK LOCOMOTION: WALK: Activity did not occur on this shift LOCOMOTION: WALK - SCORE: 0-UNK LOCOMOTION: WHEELCHAIR: Activity did not occur on this shift LOCOMOTION: WHEELCHAIR - SCORE: 0-UNK COMPREHENSION: COMPREHENSION: TYPE: Both COMPREHENSION - STEP 1: Does the patient require help to understand complex and abstract ideas (such as current events, finan ny, discharge planning, medical issues, relationships, etc)? No. COMPREHENSION - STEP 2: Does the patient need extra time, require an assistive device (such as glasses, hearing aids, or an a ugmentative communication system), OR does s/he have mild difficulty expressing complex and abstract ideas (including mild dysarthria or mild word-finding problems)? Yes. COMPREHENSION - SCORE: 6-LETI EXPRESSION EXPRESSION: TYPE: Both EXPRESSION - STEP 1: Does the patient require help expressing complex and abstract ideas (such as current events, finances , discharge planning, medical issues, relationships, etc)? No. EXPRESSION - STEP 2: Does the patient need extra time, require an assistive device (such as augmentive communication syste m or a communication board), OR does s/he have mild difficulty expressing complex and abstract ideas (including mild dysarthria or mild word-find problems)? No. EXPRESSION - SCORE: 7-IND SOCIAL INTERACTION: SOCIAL INTERACTION - STEP 1: Does the patient require a helper to interact with others in social and therapeutic situations? No. SOCIAL INTERACTION - STEP 2: Does the patient need extra time in social situations, OR does s/he interact with staff, other patien ts, and family members ONLY in structured environments, OR does s/he require medication for social in teraction? Yes, patient needs extra time SOCIAL INTERACTION - SCORE: 6-LETI PROBLEM SOLVING: PROBLEM SOLVING - STEP 1: Does the patient need help to solve complex problems such as managing a checking account or confronti ng interpersonal problems? No. PROBLEM SOLVING - STEP 2: Does the patient require extra time to make decisions or solve problems, OR does s/he have slight dif ficulty reading, initiating, or self-correcting in unfamiliar situations? Yes, patient needs extra ti me. PROBLEM SOLVING - SCORE: 6-LETI MEMORY: MEMORY - STEP 1: Does the patient need help to remember frequently encountered people, daily routines, and executing r equests? No. MEMORY - STEP 2: Does the patient have slight difficulty recognizing frequently encountered people, daily routines, or executing requests without the need for repetition or using self-initiated or environmental cues to remember? Yes. MEMORY - SCORE: 6-LETI SIGNATURE PANEL: The following modified sections: Eating - Score, Grooming - Score, Dressing - Upper Body - Score, Tray ssing - Lower Body - Score, Toileting - Score, Bladder Management - Score, Bowel Management - Score, Transfers: Bed, Chair, Wheelchair - Score, Transfers: Toilet - Score, Transfers: Shower - Score, García sfers: Tub - Score, Locomotion: Walk - Score, Locomotion: Wheelchair - Score, Comprehension - Score, Expression - Score, Social Interaction - Score, Problem Solving - Score, Memory - Score were [electro nically] signed by Julita Jacobs CNA on FriJul 21 2018 02:30:21 GMT-0500 (Central Daylight Time)
[2018-07-21 06:07] LABS: Magnesium 2.8 mg/dL (1.8-2.4); Potassium 3.8 mmol/L (3.5-5.1)
[2018-07-21 06:08] LABS: Absolute Lymphocytes (CBC) 1.3 K/uL (0.7-4.9); Absolute Monocytes 0.3 K/uL (0.1-1.3); Absolute Neutrophil 2.1 K/uL (1.8-8.0); Basophils % 0.8 % (0-1.3); Eosinophils % 6.6 % (0-4.4); Hematocrit 25.7 % (36.0-45.0); Lymphocytes % 31.9 % (15.3-44.8); MCH 29.7 pg (27.0-35.0); MPV 7.9 fL (7.6-11.3); Monocytes % 8.3 % (3.3-12.3); RBC Red Blood Cell Count 2.92 M/uL (3.86-4.86)
[2018-07-21] MEDS: ENOXAPARIN 40 MG/0.4 ML SQ SCH (06:39)
[2018-07-21] MEDS: ALBUTEROL 2.5 MG/3 ML NEB SOL NEB SCH ×2 (07:36→19:51)
[2018-07-21] MEDS: FERROUS SULFATE 325 MG TAB PO SCH (07:57)
[2018-07-21] MEDS: PANTOPRAZOLE 40MG TABLET PO SCH (07:57)
[2018-07-21] MEDS: FUROSEMIDE 20 MG TABLET PO SCH (07:58)
[2018-07-21] MEDS: ASPIRIN EC 81 MG TAB PO SCH (07:59)
[2018-07-21] MEDS: FE SULF/FA/VIT B COMP & C TAB PO SCH (07:59)
[2018-07-21] MEDS: MAGNESIUM OXIDE 400 MG TAB PO SCH (07:59)
[2018-07-21] MEDS: GABAPENTIN 300 MG CAP PO SCH ×2 (07:59→19:58)
[2018-07-21] MEDS: TRAMADOL HCL 50 MG TAB PO PRN ×2 (07:59→12:29)
[2018-07-21] MEDS: [UNRECOGNIZED DRUG - REMARK] NAS SCH (08:00)
[2018-07-21] MEDS: PROMOD 30 ML DOSE PO SCH ×2 (08:00→19:59)
[2018-07-21] MEDS: Anoro Ellipta 1 PUFF IH SCH (08:00)
[2018-07-21] MEDS: LOSARTAN POTASSIUM 50 MG TABLET PO SCH (09:08)
[2018-07-21] MEDS: METOPROLOL XL 50 MG TAB PO SCH (09:08)
--- NOTE | 2018-07-21 14:00 | FAST ---
SHIFT START DATE/TIME: 07/20/2018 07:00 (CDT) SHIFT END DATE/TIME: 07/20/2018 19:00 (CDT) NAME MARS AUGUSTIN DATE OF : 1930 DATE OF ADMISSION: 07/14/2018 17:52 (CDT) PHONE: AGE: 88 [facility]# [id number] GENDER: Female ENCOUNTER PHYSICIAN: Dr. Anthony Ybarra M.D. ADMISSION DIAGNOSIS: - Orthopaedic Disorders 08 - Other Orthopaedic (08.9) Right Patella Fracture. Right Shoulder Avulsion Fracture. Left 1st Proximal Phalanx Fracture. EATING: EATING - STEP 1: Does the patient require assistance when eating? Yes. EATING - STEP 2: Does the patient require the assistance of a helper? Yes. EATING - STEP 3: Does the patient perform half or more of the eating tasks? Yes. EATING - STEP 4: Does the patient need only supervision, cuing, coaxing OR help to apply an orthosis OR help to cut fo od, open containers, pour liquids, or butter bread? Yes. EATING - SCORE: 5-SUP GROOMING: Comb/brush hair Oral care Wash, rinse, and dry face Wash, rinse, and dry hands GROOMING - STEP 1: Does the patient require assistance when grooming? Yes. GROOMING - STEP 2: Does the patient require the assistance of a helper? No. The patient only requires an assistive devic e, OR takes more than reasonable time to groom, OR there is a concern for safety as the patient groom s GROOMING - SCORE: 6-LETI BATHING: Activity did not occur on this shift BATHING - SCORE: 0-UNK DRESSING - UPPER BODY: T-shirt/pullover shirt (four steps) ARTICLES SCORE Total number of steps: 4 DRESSING - UPPER BODY - STEP 1: Does the patient require help when dressing above the waist? Yes. DRESSING - UPPER BODY - STEP 2: Does the patient require the assistance of a helper? Yes. DRESSING - UPPER BODY - STEP 3: Does the helper touch the patient while dressing? Yes. DRESSING - UPPER BODY - STEP 4: How many of the total steps does the patient complete on his/her own? 2 DRESSING - UPPER BODY - SCORE: 3-MOD DRESSING - UPPER BODY - COMMENTS: Right arm in sling- DRESSING - LOWER BODY: Elastic waist pants (three steps) Tied or buckled shoe - Left foot (two steps) Underwear (three steps) ARTICLES SCORE Total number of steps: 8 DRESSING - LOWER BODY - STEP 1: Does the patient require help when dressing below the waist? Yes. DRESSING - LOWER BODY - STEP 2: Does the patient require the assistance of a helper? Yes. DRESSING - LOWER BODY - STEP 3: Does the helper touch the patient while dressing? Yes. DRESSING - LOWER BODY - STEP 4: How many of the total steps does the patient complete on his/her own? 0 DRESSING - LOWER BODY - STEP 5: Does patient require total assistance for dressing below the waist such as the helper holding clothin g and performing basically all the activities? Yes. DRESSING - LOWER BODY - SCORE: 1-DEP DRESSING - LOWER BODY - COMMENTS: Immobilizer on right knee- TOILETING: TOILETING - STEP 1: Does the patient require assistance with toileting? Yes. TOILETING - STEP 2: Does the patient require the assistance of a helper? Yes. TOILETING - STEP 3: How much assistance does the patient require from the helper? Hands-on assistance from the helper TOILETING - STEP 4: Of the 3 tasks: 1) Adjusting clothing prior to use, 2) Cleansing of perineal area, 3) Adjusting clot neda after use; How many tasks does the patient perform WITHOUT assistance of the helper? One task TOILETING - SCORE: 2-MAX TOILETING - COMMENTS: Right knee immobilizer- right arm in sling- BLADDER MANAGEMENT: BLADDER MANAGEMENT - STEP 1: Does the patient control the bladder completely and intentionally without equipment or devices or med ications, and is always continent? No. BLADDER MANAGEMENT - STEP 2: Does the patient require the assistance of a helper? Yes. BLADDER MANAGEMENT - STEP 3: How much assistance does the patient require from the helper? Patient requires contact assistance fro m the helper BLADDER MANAGEMENT - STEP 4: How much contact assistance does the patient require from the helper? Patient requires maximal assist ance, and only performs 25% to 49% of bladder management tasks BLADDER MANAGEMENT - SCORE: 2-MAX BLADDER MANAGEMENT - FREQUENCY OF ACCIDENTS: BLADDER MANAGEMENT(FA) - STEP 1: How many accidents has the patient had during the current shift? 0 BOWEL MANAGEMENT: BOWEL MANAGEMENT - STEP 1: Does the patient control bowels completely and intentionally without equipment devices or medications AND is always continent? No. BOWEL MANAGEMENT - STEP 2: Does the patient require the assistance of a helper? No, patient requires medication for control such as stool softeners, suppositories, laxatives, enemas, or OTC medications BOWEL MANAGEMENT - SCORE: 6-LETI BOWEL MANAGEMENT - FREQUENCY OF ACCIDENTS: BOWEL MANAGEMENT(FA) - STEP 1: How many accidents has the patient had during the current shift? 0 TRANSFERS: BED, CHAIR, WHEELCHAIR: TRANSFERS: BED, CHAIR, WHEELCHAIR - STEP 1: Does the patient require assistance with bed, chair, or wheelchair transfers? Yes. TRANSFERS: BED, CHAIR, WHEELCHAIR - STEP 2: Does the patient require the assistance of a helper? Yes. TRANSFERS: BED, CHAIR, WHEELCHAIR - STEP 3: How much assistance does the patient require from the helper? Lifting of the patient TRANSFERS: BED, CHAIR, WHEELCHAIR - STEP 4: Does the helper lift the patient ONLY up? ONLY down? Up AND Down? Up AND Down. TRANSFERS: BED, CHAIR, WHEELCHAIR - SCORE: 2-MAX TRANSFERS: TOILET: TRANSFERS: TOILET - STEP 1: Does the patient require assistance with toilet transfers? Yes. TRANSFERS: TOILET - STEP 2: Does the patient require the assistance of a helper? Yes. TRANSFERS: TOILET - STEP 3: How much assistance does the patient require from the helper? Patient performs less than half of the transferring tasks TRANSFERS: TOILET - STEP 4: Does the patient require total assistance for the toilet transfer such as the helper doing basically all the lifting? No. TRANSFERS: TOILET - SCORE: 2-MAX TRANSFERS: SHOWER: Activity did not occur on this shift TRANSFERS: SHOWER - SCORE: 0-UNK TRANSFERS: TUB: Activity did not occur on this shift TRANSFERS: TUB - SCORE: 0-UNK LOCOMOTION: WALK: Activity did not occur on this shift LOCOMOTION: WALK - SCORE: 0-UNK LOCOMOTION: WHEELCHAIR: LOCOMOTION: WHEELCHAIR - STEP 1: Does the patient need help to go 150 feet in a wheelchair? Yes. LOCOMOTION: WHEELCHAIR - STEP 2: How much assistance does the patient need from the helper? More than incidental help LOCOMOTION: WHEELCHAIR - SCORE: 3-MOD COMPREHENSION: COMPREHENSION: TYPE: Both COMPREHENSION - STEP 1: Does the patient require help to understand complex and abstract ideas (such as current events, finan ny, discharge planning, medical issues, relationships, etc)? No. COMPREHENSION - STEP 2: Does the patient need extra time, require an assistive device (such as glasses, hearing aids, or an a ugmentative communication system), OR does s/he have mild difficulty expressing complex and abstract ideas (including mild dysarthria or mild word-finding problems)? Yes. COMPREHENSION - SCORE: 6-LETI EXPRESSION EXPRESSION: TYPE: Both EXPRESSION - STEP 1: Does the patient require help expressing complex and abstract ideas (such as current events, finances , discharge planning, medical issues, relationships, etc)? No. EXPRESSION - STEP 2: Does the patient need extra time, require an assistive device (such as augmentive communication syste m or a communication board), OR does s/he have mild difficulty expressing complex and abstract ideas (including mild dysarthria or mild word-find problems)? Yes. EXPRESSION - SCORE: 6-LETI SOCIAL INTERACTION: SOCIAL INTERACTION - STEP 1: Does the patient require a helper to interact with others in social and therapeutic situations? No. SOCIAL INTERACTION - STEP 2: Does the patient need extra time in social situations, OR does s/he interact with staff, other patien ts, and family members ONLY in structured environments, OR does s/he require medication for social in teraction? No. SOCIAL INTERACTION - SCORE: 7-IND PROBLEM SOLVING: PROBLEM SOLVING - STEP 1: Does the patient need help to solve complex problems such as managing a checking account or confronti ng interpersonal problems? No. PROBLEM SOLVING - STEP 2: Does the patient require extra time to make decisions or solve problems, OR does s/he have slight dif ficulty reading, initiating, or self-correcting in unfamiliar situations? Yes, patient needs extra ti me. PROBLEM SOLVING - SCORE: 6-LETI MEMORY: MEMORY - STEP 1: Does the patient need help to remember frequently encountered people, daily routines, and executing r equests? No. MEMORY - STEP 2: Does the patient have slight difficulty recognizing frequently encountered people, daily routines, or executing requests without the need for repetition or using self-initiated or environmental cues to remember? Yes. MEMORY - SCORE: 6-LETI SIGNATURE PANEL: The following modified sections: Eating - Score, Grooming - Score, Bathing - Score, Dressing - Upper Body - Score, Dressing - Upper Body - Comments:, Dressing - Lower Body - Score, Dressing - Lower Body - Comments:, Toileting - Score, Toileting - Comments:, Bladder Management - Score, Bowel Management - Score, Transfers: Bed, Chair, Wheelchair - Score, Transfers: Toilet - Score, Transfers: Shower - Sc ore, Transfers: Tub - Score, Locomotion: Walk - Score, Locomotion: Wheelchair - Score, Comprehension - Score, Expression - Score, Social Interaction - Score, Problem Solving - Score, Memory - Score were [electronically] signed by Naomi Gaston C.N.A. on FriJul 20 2018 14:23:12 [facility]-0500 ([facility] Time)
--- NOTE | 2018-07-21 14:05 | FAST ---
SHIFT START DATE/TIME: 07/21/2018 07:00 (CDT) SHIFT END DATE/TIME: 07/21/2018 19:00 (CDT) NAME MARS AUGUSTIN DATE OF : 1930 DATE OF ADMISSION: 07/14/2018 17:52 (CDT) PHONE: AGE: 88 N# [id number] GENDER: Female ENCOUNTER PHYSICIAN: Dr. Anthony Ybarra M.D. ADMISSION DIAGNOSIS: - Orthopaedic Disorders 08 - Other Orthopaedic (08.9) Right Patella Fracture. Right Shoulder Avulsion Fracture. Left 1st Proximal Phalanx Fracture. EATING: EATING - STEP 1: Does the patient require assistance when eating? Yes. EATING - STEP 2: Does the patient require the assistance of a helper? No, patient only requires an assistive device, O R s/he takes more than reasonable time to eat, OR there is a safety concern, OR s/he requires modifie d food consistency EATING - SCORE: 6-LETI GROOMING: Comb/brush hair Oral care Wash, rinse, and dry face Wash, rinse, and dry hands GROOMING - STEP 1: Does the patient require assistance when grooming? Yes. GROOMING - STEP 2: Does the patient require the assistance of a helper? No. The patient only requires an assistive devic e, OR takes more than reasonable time to groom, OR there is a concern for safety as the patient groom s GROOMING - SCORE: 6-LETI BATHING: Activity did not occur on this shift BATHING - SCORE: 0-UNK DRESSING - UPPER BODY: T-shirt/pullover shirt (four steps) ARTICLES SCORE Total number of steps: 4 DRESSING - UPPER BODY - STEP 1: Does the patient require help when dressing above the waist? Yes. DRESSING - UPPER BODY - STEP 2: Does the patient require the assistance of a helper? Yes. DRESSING - UPPER BODY - STEP 3: Does the helper touch the patient while dressing? Yes. DRESSING - UPPER BODY - STEP 4: How many of the total steps does the patient complete on his/her own? 2 DRESSING - UPPER BODY - SCORE: 3-MOD DRESSING - UPPER BODY - COMMENTS: Right shoulder fracture with sling on- pt unable to lift right arm- helper slides shirt over pt arm a nd up between pt arm and body-over pt head and over left arm- helper replaces sling DRESSING - LOWER BODY: Elastic waist pants (three steps) Slip-on shoe - Left foot (one step) Sock - Left foot (one step) Sock - Right foot (one step) Underwear (three steps) ARTICLES SCORE Total number of steps: 9 DRESSING - LOWER BODY - STEP 1: Does the patient require help when dressing below the waist? Yes. DRESSING - LOWER BODY - STEP 2: Does the patient require the assistance of a helper? Yes. DRESSING - LOWER BODY - STEP 3: Does the helper touch the patient while dressing? Yes. DRESSING - LOWER BODY - STEP 4: How many of the total steps does the patient complete on his/her own? 0 DRESSING - LOWER BODY - STEP 5: Does patient require total assistance for dressing below the waist such as the helper holding clothin g and performing basically all the activities? Yes. DRESSING - LOWER BODY - SCORE: 1-DEP DRESSING - LOWER BODY - COMMENTS: Immobilizer on right knee- boot on left foot- helper holds clothes and threads both legs into pants- helper pulls pt clothes up over pt body- TOILETING: TOILETING - STEP 1: Does the patient require assistance with toileting? Yes. TOILETING - STEP 2: Does the patient require the assistance of a helper? Yes. TOILETING - STEP 3: How much assistance does the patient require from the helper? Hands-on assistance from the helper TOILETING - STEP 4: Of the 3 tasks: 1) Adjusting clothing prior to use, 2) Cleansing of perineal area, 3) Adjusting clot neda after use; How many tasks does the patient perform WITHOUT assistance of the helper? One task TOILETING - SCORE: 2-MAX TOILETING - COMMENTS: [place] pulls pt clothes down- pt uses toilet- helper helps pt stand- pt provides perineal care-help er pulls pt pants up over pt hips BLADDER MANAGEMENT: BLADDER MANAGEMENT - STEP 1: Does the patient control the bladder completely and intentionally without equipment or devices or med ications, and is always continent? No. BLADDER MANAGEMENT - STEP 2: Does the patient require the assistance of a helper? Yes. BLADDER MANAGEMENT - STEP 3: How much assistance does the patient require from the helper? Patient requires contact assistance fro m the helper BLADDER MANAGEMENT - STEP 4: How much contact assistance does the patient require from the helper? Patient requires maximal assist ance, and only performs 25% to 49% of bladder management tasks BLADDER MANAGEMENT - SCORE: 2-MAX BLADDER MANAGEMENT - FREQUENCY OF ACCIDENTS: BLADDER MANAGEMENT(FA) - STEP 1: How many accidents has the patient had during the current shift? 0 BOWEL MANAGEMENT: Activity did not occur on this shift BOWEL MANAGEMENT - SCORE: 7-IND BOWEL MANAGEMENT - FREQUENCY OF ACCIDENTS: BOWEL MANAGEMENT(FA) - STEP 1: How many accidents has the patient had during the current shift? 0 TRANSFERS: BED, CHAIR, WHEELCHAIR: TRANSFERS: BED, CHAIR, WHEELCHAIR - STEP 1: Does the patient require assistance with bed, chair, or wheelchair transfers? Yes. TRANSFERS: BED, CHAIR, WHEELCHAIR - STEP 2: Does the patient require the assistance of a helper? Yes. TRANSFERS: BED, CHAIR, WHEELCHAIR - STEP 3: How much assistance does the patient require from the helper? Lifting of the patient TRANSFERS: BED, CHAIR, WHEELCHAIR - STEP 4: Does the helper lift the patient ONLY up? ONLY down? Up AND Down? Up AND Down. TRANSFERS: BED, CHAIR, WHEELCHAIR - SCORE: 2-MAX TRANSFERS: TOILET: TRANSFERS: TOILET - STEP 1: Does the patient require assistance with toilet transfers? Yes. TRANSFERS: TOILET - STEP 2: Does the patient require the assistance of a helper? Yes. TRANSFERS: TOILET - STEP 3: How much assistance does the patient require from the helper? Patient performs half or more of the tr ansferring tasks TRANSFERS: TOILET - STEP 4: Does the patient need only incidental help such as contact guard or steadying during toilet transfer? No. Patient needs more than incidental help TRANSFERS: TOILET - SCORE: 3-MOD TRANSFERS: SHOWER: Activity did not occur on this shift TRANSFERS: SHOWER - SCORE: 0-UNK TRANSFERS: TUB: Activity did not occur on this shift TRANSFERS: TUB - SCORE: 0-UNK LOCOMOTION: WALK: Activity did not occur on this shift LOCOMOTION: WALK - SCORE: 0-UNK LOCOMOTION: WHEELCHAIR: LOCOMOTION: WHEELCHAIR - STEP 1: Does the patient need help to go 150 feet in a wheelchair? Yes. LOCOMOTION: WHEELCHAIR - STEP 2: How much assistance does the patient need from the helper? More than incidental help LOCOMOTION: WHEELCHAIR - SCORE: 3-MOD COMPREHENSION: COMPREHENSION: TYPE: Both COMPREHENSION - STEP 1: Does the patient require help to understand complex and abstract ideas (such as current events, finan ny, discharge planning, medical issues, relationships, etc)? No. COMPREHENSION - STEP 2: Does the patient need extra time, require an assistive device (such as glasses, hearing aids, or an a ugmentative communication system), OR does s/he have mild difficulty expressing complex and abstract ideas (including mild dysarthria or mild word-finding problems)? Yes. COMPREHENSION - SCORE: 6-LETI EXPRESSION EXPRESSION: TYPE: Both EXPRESSION - STEP 1: Does the patient require help expressing complex and abstract ideas (such as current events, finances , discharge planning, medical issues, relationships, etc)? No. EXPRESSION - STEP 2: Does the patient need extra time, require an assistive device (such as augmentive communication syste m or a communication board), OR does s/he have mild difficulty expressing complex and abstract ideas (including mild dysarthria or mild word-find problems)? Yes. EXPRESSION - SCORE: 6-LETI SOCIAL INTERACTION: SOCIAL INTERACTION - STEP 1: Does the patient require a helper to interact with others in social and therapeutic situations? No. SOCIAL INTERACTION - STEP 2: Does the patient need extra time in social situations, OR does s/he interact with staff, other patien ts, and family members ONLY in structured environments, OR does s/he require medication for social in teraction? No. SOCIAL INTERACTION - SCORE: 7-IND PROBLEM SOLVING: PROBLEM SOLVING - STEP 1: Does the patient need help to solve complex problems such as managing a checking account or confronti ng interpersonal problems? No. PROBLEM SOLVING - STEP 2: Does the patient require extra time to make decisions or solve problems, OR does s/he have slight dif ficulty reading, initiating, or self-correcting in unfamiliar situations? Yes, patient needs extra ti me. PROBLEM SOLVING - SCORE: 6-LETI MEMORY: MEMORY - STEP 1: Does the patient need help to remember frequently encountered people, daily routines, and executing r equests? No. MEMORY - STEP 2: Does the patient have slight difficulty recognizing frequently encountered people, daily routines, or executing requests without the need for repetition or using self-initiated or environmental cues to remember? No. MEMORY - SCORE: 7-IND SIGNATURE PANEL: The following modified sections: Eating - Score, Grooming - Score, Bathing - Score, Dressing - Upper Body - Score, Dressing - Upper Body - Comments:, Dressing - Lower Body - Score, Dressing - Lower Body - Comments:, Toileting - Comments:, Bladder Management - Score, Bowel Management - Score, Transfers: Bed, Chair, Wheelchair - Score, Transfers: Toilet - Score, Transfers: Shower - Score, Transfers: Tub - Score, Locomotion: Walk - Score, Locomotion: Wheelchair - Score, Comprehension - Score, Expression - Score, Social Interaction - Score, Problem Solving - Score, Memory - Score, Toileting - Score were [electronically] signed by Naomi Gaston C.N.A. on FriJul 21 2018 14:04:46 [facility]-0500 (Pending sale to [facility])
--- NOTE | 2018-07-21 19:06 | R.PN ---
ENCOUNTER DATE AND TIME: 07/21/2018 19:02 (CDT) NAME MARS AUGUSTIN DATE OF : 1930 DATE OF ADMISSION: 07/14/2018 17:52 (CDT) Right Patella FractureRight Shoulder Avulsion FractureLeft 1st Proximal Phalanx FractureCHIEF COMPLAI NT: Right patella fracture, right shoulder avulsion fracture SUBJECTIVE: Pt denied any Shortness of Breath. Pt denied any depression. Ambulated 55' with minimum assistance using a left hemiwalker. VITAL SIGNS Temperature: 98.3 F SBP/DBP: 127/63 Pulse: 69 Resp: 16 MEDICATION ALLERGIES: Ibuprofen Codeine Penicillin ENVIRONMENTAL ALLERGIES: None Known - Substance Allergies None Known - Other Allergies None Known NURSING: - Shower allowing shower - Skin care per protocol PRECAUTIONS: - Weight Bearing Precaution NWB right UE WBAT right LE ACTIVITIES OOB only with supervision THERAPIES: - Occupational Therapy Evaluate and Treat. - Physical Therapy Evaluate and Treat. PHYSICAL EXAM - Gen Alert and awake Lying in bed No apparent distress Oriented to: person, time, and place - Skin No skin breakdown. Normacephalic - Eyes No abnormalities - ENMT No abnormalities - Neck No abnormalities - CVS RRR - Chest Clear - Abd Soft - GI nondistended Deferred - No abnormalities - Ext No significant edema - MSK 4+/5 weakness in right lower extremity - Neuro 4/5 strength right upper and lower extremities. - Psych No abnormalities ASSESSMENT: Pt. is a 88 yo Right-handed white female.On 07/10/2018 she was admitted to [facility] with diagnosis Right Patella Fracture.Her impairment category is Orthopaedic Disorders 08 - O ther Orthopaedic (08.9).Pre-morbidly, Pt. was independent/mod-I in Social Cognition, Communication, S phincter Control, Locomotion, Self-Care, and Transfers Control; and she had good Sphincter Control.Cu rrently, she has deficits of Locomotion, Self-Care, Transfers Control, Safety Awareness, Balance, and Endurance.Pt. is now referred to [facility] for acute in-patient rehabilitati on in order to maximize patient's functional independence in activities of daily living, strength, RO M, and mobility.- Rehab Goal Patient has realistic goal of being discharged at assistance level 6-Betsy to reside at Home with Fam sukumar/Relatives. MDM/PLAN: - Physical Therapy Weakness - to improve, our physical therapists will perform initial evaluation of pt's status upon a dmission and devise an individualized program for Aquatic Therapy, Neuromuscular Reeducation, and Str engthening Poor balance - to improve, our physical therapists will perform initial evaluation of pt's status up on admission and devise an individualized program for Balance Training Inability to transfer - to improve, our physical therapists will perform initial evaluation of pt's status upon admission and devise an individualized program for Bed mobility Decreased range of motion - to improve, our physical therapists will perform initial evaluation of p t's status upon admission and devise an individualized program for increasing patient's Range of Kuldeep on. Need in caregiver upon discharge - to improve, our physical therapists will perform initial evaluati on of pt's status upon admission and devise an individualized program for Caregiver Training Poor endurance - to improve, our physical therapists will perform initial evaluation of pt's status upon admission and devise an individualized program for Endurance Training Gait dysfunction - to improve, our physical therapists will perform initial evaluation of pt's statu s upon admission and devise an individualized program for Gait Training, and Wheel Chair mobility Need for home safety evaluation - to improve, our physical therapists will perform initial evaluatio n of pt's status upon admission and devise an individualized program for Home Evaluation New precaution - to improve, our physical therapists will perform initial evaluation of pt's status upon admission and devise an individualized program for Patient precaution education Edema - to improve, our physical therapists will perform initial evaluation of pt's status upon admi ssion and devise an individualized program for Elevation Training, and Lymphedema Therapy - Occupational Therapy Weakness - to improve, our occupation therapists will perform initial evaluation of pt's status upon admission and devise an individualized program for Aquatic Therapy, Balance, Endurance, UE ROM, and UE strengthening ADL deficits - to improve, our occupation therapists will perform initial evaluation of pt's status upon admission and devise an individualized program for Bathing, Bed mobility, Community Reintegratio n, Cooking, Dressing, Eating, Fine Motor Skills, Grooming, Homemaking, Kitchen Mobility, Laundry, Pat ient Education, Safety Awareness, Splinting - Positioning, Transfers(Toilet, Tub, Shower), and Wheel Chair Management Need for career development facilitator - to improve, our occupation therapists will perform initial evaluation of pt's status upon admission and devise an individualized program for Caregiver Training - Diet Type Continue Regular - Diet - Liquid Texture Continue Regular - Tube Feed Continue N/A - Weight Bearing Precaution NWB right UE WBAT right LE - Skin care per protocol - Diet - Solid Texture Continue Regular - Shower allowing shower - Balance for Weakness - Bed mobility for ADL deficits FUNCTIONAL STATUS: UPDATED AT WEEKLY TEAM CONFERENCE - Bladder Same accident frequency: 7-Ind - No accidents in the past 7 days - Bowel Same accident frequency: 7-Ind - No accidents in the past 7 days - Walking Same score based on distance walked: 0(N/A) - Wheelchair Same score based on distance traveled: 0(N/A) FUNCTIONAL STATUS: - Self-Care A. Eating Mary B. Grooming Mary C. Bathing Dep D. Dressing - Upper Dep E. Dressing - Lower Dep F. Toileting modA - Sphincter Control G: Bladder control Dep H: Bowel control Ind - Transfers Control I. Bed/Chair/Wheelchair modA J. Toilet modA K. Tub/Shower ADNO - Locomotion L. Walk/Wheelchair (B) modA M. Stairs ADNO - Communication N. Comprehension (B) Ind O. Expression (B) Ind - Social Cognition P. Social Interaction Ind Q. Problem Solving Ind R. Memory Ind - Endurance Fair - Balance Fair - Safety Awareness Fair [facility] DEFICITS: Locomotion, Self-Care, Transfers Control, Safety Awareness, Balance, and Endurance SIGNATURE PANEL: (CDT)
[2018-07-21] MEDS: DOCUSATE NA/SENNA CONC 1 TAB PO SCH (20:00)
[2018-07-21] MEDS: DIPHENHYDRAMINE 25 MG TAB/CAP PO PRN (23:41)
[2018-07-21] MEDS: HYDROCODONE/APAP 7.5/325 MG TAB PO PRN (23:41)
--- NOTE | 2018-07-22 00:51 | PN ---
Date of Progress Note: 07/21/2018 Subjective: The patient was seen this morning for followup. No new complaints or problems reported by the patient. She was lying in bed, not in distress. Objective: Vital Signs: Reviewed. HEENT: Unremarkable. Lungs: Clear to auscultation. Heart: Sounds normal. Abdomen: Soft. Bowel sounds normal. No guarding, rigidity, tenderness, or distention. Extremities: No leg edema. Impression: 1.Right patella fracture. 2.Right shoulder fracture. 3.Hypertension. 4.Chronic obstructive pulmonary disease. Plan: We will continue current medications. Continue current antihypertensive medication, nebulizer treatment. Pain medication and physical therapy per guidance of Dr. Ybarra. Continue DVT prophyl axis with Lovenox. GIA/MODL Voice ID: [id number] Report ID: [id number]
[2018-07-22] MEDS: HYDROCODONE/APAP 7.5/325 MG TAB PO PRN ×2 (07:06→19:19)
[2018-07-22] MEDS: ENOXAPARIN 40 MG/0.4 ML SQ SCH (07:06)
[2018-07-22] MEDS: Anoro Ellipta 1 PUFF IH SCH (07:12)
[2018-07-22] MEDS: [UNRECOGNIZED DRUG - REMARK] NAS SCH (07:13)
[2018-07-22] MEDS: ALBUTEROL 2.5 MG/3 ML NEB SOL NEB SCH ×2 (07:27→20:00)
[2018-07-22] MEDS: METOPROLOL XL 50 MG TAB PO SCH (08:00)
[2018-07-22] MEDS: LOSARTAN POTASSIUM 50 MG TABLET PO SCH (08:00)
--- NOTE | 2018-07-22 08:00 | FAST ---
ENCOUNTER DATE AND TIME: 07/21/2018 08:00 (CDT) NAME MARS AUGUSTIN DATE OF : 1930 DATE OF ADMISSION: 07/14/2018 17:52 (CDT) PHONE: AGE: 88 N# [id number] GENDER: Female ENCOUNTER PHYSICIAN: Dr. Anthony Ybarra M.D. ADMISSION DIAGNOSIS: - Orthopaedic Disorders 08 - Other Orthopaedic (08.9) Right Patella Fracture. Right Shoulder Avulsion Fracture. Left 1st Proximal Phalanx Fracture. EATING: Activity did not occur on this shift EATING - SCORE: 0-UNK GROOMING: Activity did not occur on this shift GROOMING - SCORE: 0-UNK BATHING: Activity did not occur on this shift BATHING - SCORE: 0-UNK DRESSING - UPPER BODY: Activity did not occur on this shift Patient is not dressing in public clothing ARTICLES SCORE Total number of steps: 0 DRESSING - UPPER BODY - SCORE: 0-UNK DRESSING - LOWER BODY: Activity did not occur on this shift Patient is not dressing in public clothing ARTICLES SCORE Total number of steps: 0 DRESSING - LOWER BODY - SCORE: 0-UNK TOILETING: Activity did not occur on this shift TOILETING - SCORE: 0-UNK BLADDER MANAGEMENT: Activity did not occur on this shift BLADDER MANAGEMENT - SCORE: 7-IND BOWEL MANAGEMENT: Activity did not occur on this shift BOWEL MANAGEMENT - SCORE: 7-IND TRANSFERS: BED, CHAIR, WHEELCHAIR: TRANSFERS: BED, CHAIR, WHEELCHAIR - STEP 1: Does the patient require assistance with bed, chair, or wheelchair transfers? Yes. TRANSFERS: BED, CHAIR, WHEELCHAIR - STEP 2: Does the patient require the assistance of a helper? Yes. TRANSFERS: BED, CHAIR, WHEELCHAIR - STEP 3: How much assistance does the patient require from the helper? Lifting of the legs TRANSFERS: BED, CHAIR, WHEELCHAIR - STEP 4: How many legs does the patient require the helper to lift? both legs TRANSFERS: BED, CHAIR, WHEELCHAIR - SCORE: 3-MOD TRANSFERS: TOILET: Activity did not occur on this shift TRANSFERS: TOILET - SCORE: 0-UNK TRANSFERS: SHOWER: Activity did not occur on this shift TRANSFERS: SHOWER - SCORE: 0-UNK TRANSFERS: TUB: Activity did not occur on this shift TRANSFERS: TUB - SCORE: 0-UNK LOCOMOTION: WALK: Patient walks less than 50 feet LOCOMOTION: WALK - SCORE: 1-DEP LOCOMOTION: WHEELCHAIR: Activity did not occur on this shift LOCOMOTION: WHEELCHAIR - SCORE: 0-UNK LOCOMOTION: STAIRS: Activity did not occur on this shift LOCOMOTION: STAIRS - SCORE: 0-UNK COMPREHENSION: COMPREHENSION - SCORE: 0-UNK EXPRESSION EXPRESSION - SCORE: 0-UNK SOCIAL INTERACTION: SOCIAL INTERACTION - SCORE: 0-UNK PROBLEM SOLVING: PROBLEM SOLVING - SCORE: 0-UNK MEMORY: MEMORY - SCORE: 0-UNK SIGNATURE PANEL: The following modified sections: Transfers: Bed, Chair, Wheelchair - Score, Transfers: Toilet - Score , Locomotion: Walk - Score, Locomotion: Wheelchair - Score, Locomotion: Stairs - Score were [electron ically] signed by Flavio Fernandez PTA on FriJul 22 2018 07:59:00 GMT-0500 (Central Daylight Time)
[2018-07-22] MEDS: LIDOCAINE 5% PATCH TOP SCH (08:28)
[2018-07-22] MEDS: GABAPENTIN 300 MG CAP PO SCH ×2 (08:30→19:20)
[2018-07-22] MEDS: PANTOPRAZOLE 40MG TABLET PO SCH (08:30)
[2018-07-22] MEDS: FERROUS SULFATE 325 MG TAB PO SCH (08:30)
[2018-07-22] MEDS: PROMOD 30 ML DOSE PO SCH ×2 (08:30→19:19)
[2018-07-22] MEDS: ASPIRIN EC 81 MG TAB PO SCH (08:30)
[2018-07-22] MEDS: MAGNESIUM OXIDE 400 MG TAB PO SCH (08:31)
[2018-07-22] MEDS: FE SULF/FA/VIT B COMP & C TAB PO SCH (08:31)
[2018-07-22] MEDS: FUROSEMIDE 20 MG TABLET PO SCH (08:32)
--- NOTE | 2018-07-22 10:30 | FAST ---
SHIFT START DATE/TIME: 07/22/2018 07:00 (CDT) SHIFT END DATE/TIME: 07/22/2018 19:00 (CDT) NAME MARS AUGUSTIN DATE OF : 1930 DATE OF ADMISSION: 07/14/2018 17:52 (CDT) PHONE: AGE: 88 [facility]# [id number] GENDER: Female ENCOUNTER PHYSICIAN: Dr. Anthony Ybarra M.D. ADMISSION DIAGNOSIS: - Orthopaedic Disorders 08 - Other Orthopaedic (08.9) Right Patella Fracture. Right Shoulder Avulsion Fracture. Left 1st Proximal Phalanx Fracture. EATING: EATING - STEP 1: Does the patient require assistance when eating? Yes. EATING - STEP 2: Does the patient require the assistance of a helper? No, patient only requires an assistive device, O R s/he takes more than reasonable time to eat, OR there is a safety concern, OR s/he requires modifie d food consistency EATING - SCORE: 6-LETI GROOMING: Comb/brush hair Oral care Wash, rinse, and dry face Wash, rinse, and dry hands GROOMING - STEP 1: Does the patient require assistance when grooming? Yes. GROOMING - STEP 2: Does the patient require the assistance of a helper? No. The patient only requires an assistive devic e, OR takes more than reasonable time to groom, OR there is a concern for safety as the patient groom s GROOMING - SCORE: 6-LETI BATHING: Activity did not occur on this shift BATHING - SCORE: 0-UNK DRESSING - UPPER BODY: Activity did not occur on this shift ARTICLES SCORE Total number of steps: 0 DRESSING - UPPER BODY - SCORE: 0-UNK DRESSING - LOWER BODY: Activity did not occur on this shift ARTICLES SCORE Total number of steps: 0 DRESSING - LOWER BODY - SCORE: 0-UNK TOILETING: TOILETING - STEP 1: Does the patient require assistance with toileting? Yes. TOILETING - STEP 2: Does the patient require the assistance of a helper? Yes. TOILETING - STEP 3: How much assistance does the patient require from the helper? Hands-on assistance from the helper TOILETING - STEP 4: Of the 3 tasks: 1) Adjusting clothing prior to use, 2) Cleansing of perineal area, 3) Adjusting clot neda after use; How many tasks does the patient perform WITHOUT assistance of the helper? Three tasks with steadying assistance from the helper TOILETING - SCORE: 4-MIN BLADDER MANAGEMENT: BLADDER MANAGEMENT - STEP 1: Does the patient control the bladder completely and intentionally without equipment or devices or med ications, and is always continent? No. BLADDER MANAGEMENT - STEP 2: Does the patient require the assistance of a helper? No, patient requires and independently uses an a ssistive device, such as a urinal, bedpan, bedside commode, catheter, absorbent pad, or collecting de vice BLADDER MANAGEMENT - SCORE: 6-LETI BOWEL MANAGEMENT: BOWEL MANAGEMENT - STEP 1: Does the patient control bowels completely and intentionally without equipment devices or medications AND is always continent? No. BOWEL MANAGEMENT - STEP 2: Does the patient require the assistance of a helper? No, patient requires and manages independently a n assistive device such as a bedpan, bedside commode, absorbent pad, incontinent device, or collectin g device BOWEL MANAGEMENT - SCORE: 6-LETI TRANSFERS: BED, CHAIR, WHEELCHAIR: TRANSFERS: BED, CHAIR, WHEELCHAIR - STEP 1: Does the patient require assistance with bed, chair, or wheelchair transfers? Yes. TRANSFERS: BED, CHAIR, WHEELCHAIR - STEP 2: Does the patient require the assistance of a helper? Yes. TRANSFERS: BED, CHAIR, WHEELCHAIR - STEP 3: How much assistance does the patient require from the helper? Steadying/guiding assistance TRANSFERS: BED, CHAIR, WHEELCHAIR - SCORE: 4-MIN TRANSFERS: TOILET: TRANSFERS: TOILET - STEP 1: Does the patient require assistance with toilet transfers? Yes. TRANSFERS: TOILET - STEP 2: Does the patient require the assistance of a helper? Yes. TRANSFERS: TOILET - STEP 3: How much assistance does the patient require from the helper? Only supervision, cuing, coaxing, OR he lp to set out transfer equipment or to lock brakes and/or lift foot rests TRANSFERS: TOILET - SCORE: 5-SUP TRANSFERS: SHOWER: Activity did not occur on this shift TRANSFERS: SHOWER - SCORE: 0-UNK TRANSFERS: TUB: Activity did not occur on this shift TRANSFERS: TUB - SCORE: 0-UNK LOCOMOTION: WALK: Activity did not occur on this shift LOCOMOTION: WALK - SCORE: 0-UNK LOCOMOTION: WHEELCHAIR: Activity did not occur on this shift LOCOMOTION: WHEELCHAIR - SCORE: 0-UNK COMPREHENSION: COMPREHENSION: TYPE: Both COMPREHENSION - STEP 1: Does the patient require help to understand complex and abstract ideas (such as current events, finan ny, discharge planning, medical issues, relationships, etc)? No. COMPREHENSION - STEP 2: Does the patient need extra time, require an assistive device (such as glasses, hearing aids, or an a ugmentative communication system), OR does s/he have mild difficulty expressing complex and abstract ideas (including mild dysarthria or mild word-finding problems)? Yes. COMPREHENSION - SCORE: 6-LETI EXPRESSION EXPRESSION: TYPE: Both EXPRESSION - STEP 1: Does the patient require help expressing complex and abstract ideas (such as current events, finances , discharge planning, medical issues, relationships, etc)? No. EXPRESSION - STEP 2: Does the patient need extra time, require an assistive device (such as augmentive communication syste m or a communication board), OR does s/he have mild difficulty expressing complex and abstract ideas (including mild dysarthria or mild word-find problems)? Yes. EXPRESSION - SCORE: 6-LETI SOCIAL INTERACTION: SOCIAL INTERACTION - STEP 1: Does the patient require a helper to interact with others in social and therapeutic situations? No. SOCIAL INTERACTION - STEP 2: Does the patient need extra time in social situations, OR does s/he interact with staff, other patien ts, and family members ONLY in structured environments, OR does s/he require medication for social in teraction? No. SOCIAL INTERACTION - SCORE: 7-IND PROBLEM SOLVING: PROBLEM SOLVING - STEP 1: Does the patient need help to solve complex problems such as managing a checking account or confronti ng interpersonal problems? No. PROBLEM SOLVING - STEP 2: Does the patient require extra time to make decisions or solve problems, OR does s/he have slight dif ficulty reading, initiating, or self-correcting in unfamiliar situations? Yes, patient needs extra ti me. PROBLEM SOLVING - SCORE: 6-LETI MEMORY: MEMORY - STEP 1: Does the patient need help to remember frequently encountered people, daily routines, and executing r equests? No. MEMORY - STEP 2: Does the patient have slight difficulty recognizing frequently encountered people, daily routines, or executing requests without the need for repetition or using self-initiated or environmental cues to remember? Yes. MEMORY - SCORE: 6-LETI SIGNATURE PANEL: The following modified sections: Eating - Score, Grooming - Score, Bathing - Score, Dressing - Upper Body - Score, Dressing - Lower Body - Score, Toileting - Score, Bladder Management - Score, Bowel Man agement - Score, Transfers: Bed, Chair, Wheelchair - Score, Transfers: Toilet - Score, Transfers: Nette wer - Score, Transfers: Tub - Score, Locomotion: Walk - Score, Locomotion: Wheelchair - Score, Compre hension - Score, Expression - Score, Social Interaction - Score, Problem Solving - Score, Memory - Sc ore were [electronically] signed by Lazarus Erazo on FriJul 22 2018 10:29:07 GMT-0500 (Central Daylight Time)
--- NOTE | 2018-07-22 15:07 | FAST ---
ENCOUNTER DATE AND TIME: 07/22/2018 08:00 (CDT) NAME MARS AUGUSTIN DATE OF : 1930 DATE OF ADMISSION: 07/14/2018 17:52 (CDT) PHONE: AGE: 88 N# [id number] GENDER: Female ENCOUNTER PHYSICIAN: Dr. Anthony Ybarra M.D. ADMISSION DIAGNOSIS: - Orthopaedic Disorders 08 - Other Orthopaedic (08.9) Right Patella Fracture. Right Shoulder Avulsion Fracture. Left 1st Proximal Phalanx Fracture. EATING: Activity did not occur on this shift EATING - SCORE: 0-UNK GROOMING: Activity did not occur on this shift GROOMING - SCORE: 0-UNK BATHING: Activity did not occur on this shift BATHING - SCORE: 0-UNK DRESSING - UPPER BODY: Activity did not occur on this shift Patient is not dressing in public clothing ARTICLES SCORE Total number of steps: 0 DRESSING - UPPER BODY - SCORE: 0-UNK DRESSING - LOWER BODY: Activity did not occur on this shift Patient is not dressing in public clothing ARTICLES SCORE Total number of steps: 0 DRESSING - LOWER BODY - SCORE: 0-UNK TOILETING: Activity did not occur on this shift TOILETING - SCORE: 0-UNK BLADDER MANAGEMENT: Activity did not occur on this shift BLADDER MANAGEMENT - SCORE: 7-IND BOWEL MANAGEMENT: Activity did not occur on this shift BOWEL MANAGEMENT - SCORE: 7-IND TRANSFERS: BED, CHAIR, WHEELCHAIR: TRANSFERS: BED, CHAIR, WHEELCHAIR - STEP 1: Does the patient require assistance with bed, chair, or wheelchair transfers? Yes. TRANSFERS: BED, CHAIR, WHEELCHAIR - STEP 2: Does the patient require the assistance of a helper? Yes. TRANSFERS: BED, CHAIR, WHEELCHAIR - STEP 3: How much assistance does the patient require from the helper? Lifting of the legs TRANSFERS: BED, CHAIR, WHEELCHAIR - STEP 4: How many legs does the patient require the helper to lift? both legs TRANSFERS: BED, CHAIR, WHEELCHAIR - SCORE: 3-MOD TRANSFERS: TOILET: Activity did not occur on this shift TRANSFERS: TOILET - SCORE: 0-UNK TRANSFERS: SHOWER: Activity did not occur on this shift TRANSFERS: SHOWER - SCORE: 0-UNK TRANSFERS: TUB: Activity did not occur on this shift TRANSFERS: TUB - SCORE: 0-UNK LOCOMOTION: WALK: Patient walks less than 50 feet LOCOMOTION: WALK - SCORE: 1-DEP LOCOMOTION: WHEELCHAIR: LOCOMOTION: WHEELCHAIR - STEP 1: Does the patient need help to go 150 feet in a wheelchair? Yes. LOCOMOTION: WHEELCHAIR - STEP 2: How much assistance does the patient need from the helper? Only incidental help such as around corner s or over thresholds LOCOMOTION: WHEELCHAIR - SCORE: 4-MIN LOCOMOTION: STAIRS: Activity did not occur on this shift LOCOMOTION: STAIRS - SCORE: 0-UNK COMPREHENSION: COMPREHENSION - SCORE: 0-UNK EXPRESSION EXPRESSION - SCORE: 0-UNK SOCIAL INTERACTION: SOCIAL INTERACTION - SCORE: 0-UNK PROBLEM SOLVING: PROBLEM SOLVING - SCORE: 0-UNK MEMORY: MEMORY - SCORE: 0-UNK SIGNATURE PANEL: The following modified sections: Transfers: Bed, Chair, Wheelchair - Score, Transfers: Toilet - Score , Locomotion: Walk - Score, Locomotion: Wheelchair - Score, Locomotion: Stairs - Score were [electron ically] signed by Flavio Fernandez PTA on FriJul 22 2018 15:06:43 T-0500 (Central Daylight Time)
--- NOTE | 2018-07-22 15:11 | RAD REPORT ---
EXAM DESCRIPTION: RAD - Hip Left 2 View - 07/22/2018 3:01 pm CLINICAL HISTORY: c/o pain; previous L hip replacement<Reason For Exam>c/o pain; previous L hip repl acement COMPARISON: No comparisons<Comparisons> FINDINGS: AP and frogleg views of the left hip were obtained. 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 No f racture or dislocation. No suspicious bone or implant finding. No periarticular mass or hematoma. No acute or destructive bony process seen. 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 No acute bone or implant finding. No suspicious soft tissue finding.
--- NOTE | 2018-07-22 15:14 | RAD REPORT ---
EXAM DESCRIPTION: Shoulder Right 2 View - 07/22/2018 3:01 pm CLINICAL HISTORY: followup right shoulder dislocation<Reason For Exam>followup right shoulder disloc ation COMPARISON: Shoulder Right 2 View dated 07/10/2018<Comparisons> TECHNIQUE: Internal and scapular Y-views obtained. FINDINGS: No recurrent dislocation. Humeral head is normally positioned. A large posterior humeral h ead fracture fragment remains. This matches earlier imaging. No acute AC joint finding. IMPRESSION: No recurrent dislocation. Large fracture fragment posterior humeral head remains.
--- NOTE | 2018-07-22 15:18 | RAD REPORT ---
EXAM DESCRIPTION: RAD - Knee Right 2 View - 07/22/2018 3:01 pm CLINICAL HISTORY: followup right knee fracture<Reason For Exam>followup right knee fracture COMPARISON: Knee Right 2 View dated 07/10/2018; Knee Right Wo Cont dated 07/10/2018; KNEE AP LAT dated 04/05/2008<Comparisons> None. FINDINGS: Prior CT imaging showed small fracture planes within the patella. These are difficult to a ppreciate on the lateral view. There is no distraction of patella fracture fragments. Patella is obsc ured on an AP projection due to the femoral knee component.Joint effusions seen July 10 has decreas ed but not resolved. 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 This is probably not a new finding. All bone immediately adjacent to the implant is difficult to a ssess. IMPRESSION: No change to the patella. No distraction seen along the small fracture planes detailed o n the recent CT study. Joint effusion or hemarthrosis has diminished but not resolved.
--- NOTE | 2018-07-22 16:46 | R.PN ---
ENCOUNTER DATE AND TIME: 07/22/2018 16:43 (CDT) NAME MARS AUGUSTIN DATE OF : 1930 DATE OF ADMISSION: 07/14/2018 17:52 (CDT) Right Patella FractureRight Shoulder Avulsion FractureLeft 1st Proximal Phalanx FractureCHIEF COMPLAI NT: Right patella fracture, right shoulder avulsion fracture SUBJECTIVE: Pt denied any Shortness of Breath. Pt denied any depression. Ambulated 50' with minimum assistance using a left hemiwalker. Propelled wheelchair 150' with contact guard assistance. VITAL SIGNS Temperature: 98.3 F SBP/DBP: 120/57 Pulse: 68 Resp: 16 MEDICATION ALLERGIES: Ibuprofen Codeine Penicillin ENVIRONMENTAL ALLERGIES: None Known - Substance Allergies None Known - Other Allergies None Known NURSING: - Shower allowing shower - Skin care per protocol PRECAUTIONS: - Weight Bearing Precaution NWB right UE WBAT right LE ACTIVITIES OOB only with supervision THERAPIES: - Occupational Therapy Evaluate and Treat. - Physical Therapy Evaluate and Treat. PHYSICAL EXAM - Gen Alert and awake Lying in bed No apparent distress Oriented to: person, time, and place - Skin No skin breakdown. Normacephalic - Eyes No abnormalities - ENMT No abnormalities - Neck No abnormalities - CVS RRR - Chest Clear - Abd Soft - GI nondistended Deferred - No abnormalities - Ext No significant edema - MSK 4+/5 weakness in right lower extremity - Neuro 4/5 strength right upper and lower extremities. - Psych No abnormalities ASSESSMENT: Pt. is a 88 yo Right-handed white female.On 07/10/2018 she was admitted to [facility] with diagnosis Right Patella Fracture.Her impairment category is Orthopaedic Disorders 08 - O ther Orthopaedic (08.9).Pre-morbidly, Pt. was independent/mod-I in Social Cognition, Communication, S phincter Control, Locomotion, Self-Care, and Transfers Control; and she had good Sphincter Control.Cu rrently, she has deficits of Locomotion, Self-Care, Transfers Control, Safety Awareness, Balance, and Endurance.Pt. is now referred to [facility] for acute in-patient rehabilitati on in order to maximize patient's functional independence in activities of daily living, strength, RO M, and mobility.- Rehab Goal Patient has realistic goal of being discharged at assistance level 6-Betsy to reside at Home with Fam sukumar/Relatives. MDM/PLAN: - Physical Therapy Weakness - to improve, our physical therapists will perform initial evaluation of pt's status upon a dmission and devise an individualized program for Aquatic Therapy, Neuromuscular Reeducation, and Str engthening Poor balance - to improve, our physical therapists will perform initial evaluation of pt's status up on admission and devise an individualized program for Balance Training Inability to transfer - to improve, our physical therapists will perform initial evaluation of pt's status upon admission and devise an individualized program for Bed mobility Decreased range of motion - to improve, our physical therapists will perform initial evaluation of p t's status upon admission and devise an individualized program for increasing patient's Range of Kuldeep on. Need in caregiver upon discharge - to improve, our physical therapists will perform initial evaluati on of pt's status upon admission and devise an individualized program for Caregiver Training Poor endurance - to improve, our physical therapists will perform initial evaluation of pt's status upon admission and devise an individualized program for Endurance Training Gait dysfunction - to improve, our physical therapists will perform initial evaluation of pt's statu s upon admission and devise an individualized program for Gait Training, and Wheel Chair mobility Need for home safety evaluation - to improve, our physical therapists will perform initial evaluatio n of pt's status upon admission and devise an individualized program for Home Evaluation New precaution - to improve, our physical therapists will perform initial evaluation of pt's status upon admission and devise an individualized program for Patient precaution education Edema - to improve, our physical therapists will perform initial evaluation of pt's status upon admi ssion and devise an individualized program for Elevation Training, and Lymphedema Therapy - Occupational Therapy Weakness - to improve, our occupation therapists will perform initial evaluation of pt's status upon admission and devise an individualized program for Aquatic Therapy, Balance, Endurance, UE ROM, and UE strengthening ADL deficits - to improve, our occupation therapists will perform initial evaluation of pt's status upon admission and devise an individualized program for Bathing, Bed mobility, Community Reintegratio n, Cooking, Dressing, Eating, Fine Motor Skills, Grooming, Homemaking, Kitchen Mobility, Laundry, Pat ient Education, Safety Awareness, Splinting - Positioning, Transfers(Toilet, Tub, Shower), and Wheel Chair Management Need for healthcare administration internship - to improve, our occupation therapists will perform initial evaluation of pt's status upon admission and devise an individualized program for Caregiver Training - Diet Type Continue Regular - Diet - Liquid Texture Continue Regular - Tube Feed Continue N/A - Weight Bearing Precaution NWB right UE WBAT right LE - Skin care per protocol - Diet - Solid Texture Continue Regular - Shower allowing shower - Balance for Weakness - Bed mobility for ADL deficits FUNCTIONAL STATUS: UPDATED AT WEEKLY TEAM CONFERENCE - Bladder Same accident frequency: 7-Ind - No accidents in the past 7 days - Bowel Same accident frequency: 7-Ind - No accidents in the past 7 days - Walking Same score based on distance walked: 0(N/A) - Wheelchair Same score based on distance traveled: 0(N/A) FUNCTIONAL STATUS: - Self-Care A. Eating Mary B. Grooming Mary C. Bathing Dep D. Dressing - Upper Dep E. Dressing - Lower Dep F. Toileting modA - Sphincter Control G: Bladder control Dep H: Bowel control Ind - Transfers Control I. Bed/Chair/Wheelchair modA J. Toilet modA K. Tub/Shower ADNO - Locomotion L. Walk/Wheelchair (B) modA M. Stairs ADNO - Communication N. Comprehension (B) Ind O. Expression (B) Ind - Social Cognition P. Social Interaction Ind Q. Problem Solving Ind R. Memory Ind - Endurance Fair - Balance Fair - Safety Awareness Fair CURRENT FUNC. DEFICITS: Locomotion, Self-Care, Transfers Control, Safety Awareness, Balance, and Endurance SIGNATURE PANEL: (CDT)
[2018-07-22] MEDS: DOCUSATE NA/SENNA CONC 1 TAB PO SCH (19:20)
[2018-07-22] MEDS: DIPHENHYDRAMINE 25 MG TAB/CAP PO PRN (19:20)
--- NOTE | 2018-07-22 22:38 | P.PN ---
Subjective Date of Service: 07/22/18 Chief Complaint: s/p closed reduction R glenohumeral joint, R distal femur fx Subjective: Improving, Working w/ PT pain controlled; patient mobilizing well with physical therapy Physical Examination - Vital Signs Temperature: 97.8 F Blood Pressure: 139/65 Pulse: 64 Respirations: 20 Pulse Ox (%): 98 - Physical Exam General: Alert, In no apparent distress Musculoskeletal: Other (RUE: no pain with ROM right elbow; no pain with mild forward flexion/IR/ER right shoulder; NVI distally; RLE: mild swelling of right knee with resolving ecchymoses; knee immobilizer in place; NVI distally) Assessment And Plan - Plan Loretta is an 88 yo female s/p right shoulder glenohumeral dislocation with reduction with a right lateral femoral condyle fracture and left great toe fracture -continue PT; NWB RUE in shoulder sling, WBAT RLE in knee immobilizer, WBAT LLE in hard sole shoe -may work on ROM exercises of the right elbow and wrist -xrays ordered today of the right shoulder demonstrate maintenance of reduction with acceptable alignment of the glenohumeral joint and proximal humerus fracture; xrays of the right knee demonstrate no displacement of fractures hardware or signs of hardware failure compared with prior xrays -may continue with WBAT of RLE and wean out of the knee immobilizer at 4 weeks from injury; may begin working on pendulum exercises and gentle ROM exercises of the right shoulder at 4 weeks from injury -lovenox for DVT prophylaxis
--- NOTE | 2018-07-22 22:49 | PN ---
Date of Progress Note: 07/22/2018 Subjective: The patient was seen this morning for followup. No new complaints or problems reported by her except she has not had a bowel movement in last 3 days or so now. Objective: Vital Signs: Reviewed. HEENT: Unremarkable. Lungs: Clear to auscultation. Heart: Sounds normal. Abdomen: Soft. Bowel sounds normal. No guarding, rigidity, tenderness, or distention. Extremities: No leg edema. Impression: 1.Constipation. 2.Fracture, right patella. 3.Fracture, right shoulder. 4.Hypertension. 5.Chronic obstructive pulmonary disease. 6.Anemia. Plan: We will continue current medications. Continue current antihypertensive medication, pain medi cation. She is taking hydrocodone on a scheduled basis and tramadol p.r.n. and we did talk about not to use tramadol unless she absolutely has to and cutting down on use of pain medication. Eventually , it should help her constipation problem. We will go ahead and order Dulcolax rectal suppository an d MiraLAX for her, that seems to have helped her so far. GIA/MODL Voice ID: [id number] Report ID: [id number]
--- NOTE | 2018-07-23 03:55 | FAST ---
SHIFT START DATE/TIME: 07/22/2018 19:00 (CDT) SHIFT END DATE/TIME: 07/23/2018 07:00 (CDT) NAME MARS AUGUSTIN DATE OF : 1930 DATE OF ADMISSION: 07/14/2018 17:52 (CDT) PHONE: AGE: 88 [facility]# [id number] GENDER: Female ENCOUNTER PHYSICIAN: Dr. Anthony Ybarra M.D. ADMISSION DIAGNOSIS: - Orthopaedic Disorders 08 - Other Orthopaedic (08.9) Right Patella Fracture. Right Shoulder Avulsion Fracture. Left 1st Proximal Phalanx Fracture. EATING: EATING - STEP 1: Does the patient require assistance when eating? Yes. EATING - STEP 2: Does the patient require the assistance of a helper? Yes. EATING - STEP 3: Does the patient perform half or more of the eating tasks? Yes. EATING - STEP 4: Does the patient need only supervision, cuing, coaxing OR help to apply an orthosis OR help to cut fo od, open containers, pour liquids, or butter bread? Yes. EATING - SCORE: 5-SUP GROOMING: Wash, rinse, and dry face Wash, rinse, and dry hands GROOMING - STEP 1: Does the patient require assistance when grooming? Yes. GROOMING - STEP 2: Does the patient require the assistance of a helper? Yes. GROOMING - STEP 3: How much assistance does the patient require from the helper? Only prior equipment preparation/set up from the helper GROOMING - SCORE: 5-SUP BATHING: Activity did not occur on this shift BATHING - SCORE: 0-UNK DRESSING - UPPER BODY: Patient is not dressing in public clothing ARTICLES SCORE Total number of steps: 0 DRESSING - UPPER BODY - SCORE: 0-UNK DRESSING - LOWER BODY: Patient is not dressing in public clothing ARTICLES SCORE Total number of steps: 0 DRESSING - LOWER BODY - SCORE: 0-UNK TOILETING: TOILETING - STEP 1: Does the patient require assistance with toileting? Yes. TOILETING - STEP 2: Does the patient require the assistance of a helper? Yes. TOILETING - STEP 3: How much assistance does the patient require from the helper? Hands-on assistance from the helper TOILETING - STEP 4: Of the 3 tasks: 1) Adjusting clothing prior to use, 2) Cleansing of perineal area, 3) Adjusting clot neda after use; How many tasks does the patient perform WITHOUT assistance of the helper? No tasks; h elper performs all three tasks TOILETING - SCORE: 1-DEP BLADDER MANAGEMENT: Patient requires assistance from two helpers when using bedpan. BLADDER MANAGEMENT - SCORE: 1-DEP BLADDER MANAGEMENT - FREQUENCY OF ACCIDENTS: BLADDER MANAGEMENT(FA) - STEP 1: How many accidents has the patient had during the current shift? 0 BOWEL MANAGEMENT: Patient requires assistance from two helpers when using bedpan for BM. BOWEL MANAGEMENT - SCORE: 1-DEP BOWEL MANAGEMENT - FREQUENCY OF ACCIDENTS: BOWEL MANAGEMENT(FA) - STEP 1: How many accidents has the patient had during the current shift? 0 TRANSFERS: BED, CHAIR, WHEELCHAIR: Patient requires more than one helper and/or the use of a mechanical lift is utilized TRANSFERS: BED, CHAIR, WHEELCHAIR - SCORE: 1-DEP TRANSFERS: TOILET: Patient requires more than one helper and/or the use of a mechanical lift is utilized TRANSFERS: TOILET - SCORE: 1-DEP TRANSFERS: SHOWER: Activity did not occur on this shift TRANSFERS: SHOWER - SCORE: 0-UNK TRANSFERS: TUB: Activity did not occur on this shift TRANSFERS: TUB - SCORE: 0-UNK LOCOMOTION: WALK: Activity did not occur on this shift LOCOMOTION: WALK - SCORE: 0-UNK LOCOMOTION: WHEELCHAIR: Activity did not occur on this shift LOCOMOTION: WHEELCHAIR - SCORE: 0-UNK COMPREHENSION: COMPREHENSION: TYPE: Both COMPREHENSION - STEP 1: Does the patient require help to understand complex and abstract ideas (such as current events, finan ny, discharge planning, medical issues, relationships, etc)? No. COMPREHENSION - STEP 2: Does the patient need extra time, require an assistive device (such as glasses, hearing aids, or an a ugmentative communication system), OR does s/he have mild difficulty expressing complex and abstract ideas (including mild dysarthria or mild word-finding problems)? Yes. COMPREHENSION - SCORE: 6-LETI EXPRESSION EXPRESSION: TYPE: Both EXPRESSION - STEP 1: Does the patient require help expressing complex and abstract ideas (such as current events, finances , discharge planning, medical issues, relationships, etc)? No. EXPRESSION - STEP 2: Does the patient need extra time, require an assistive device (such as augmentive communication syste m or a communication board), OR does s/he have mild difficulty expressing complex and abstract ideas (including mild dysarthria or mild word-find problems)? Yes. EXPRESSION - SCORE: 6-LETI SOCIAL INTERACTION: SOCIAL INTERACTION - STEP 1: Does the patient require a helper to interact with others in social and therapeutic situations? No. SOCIAL INTERACTION - STEP 2: Does the patient need extra time in social situations, OR does s/he interact with staff, other patien ts, and family members ONLY in structured environments, OR does s/he require medication for social in teraction? No. SOCIAL INTERACTION - SCORE: 7-IND PROBLEM SOLVING: PROBLEM SOLVING - STEP 1: Does the patient need help to solve complex problems such as managing a checking account or confronti ng interpersonal problems? No. PROBLEM SOLVING - STEP 2: Does the patient require extra time to make decisions or solve problems, OR does s/he have slight dif ficulty reading, initiating, or self-correcting in unfamiliar situations? Yes, patient needs extra ti me. PROBLEM SOLVING - SCORE: 6-LETI MEMORY: MEMORY - STEP 1: Does the patient need help to remember frequently encountered people, daily routines, and executing r equests? No. MEMORY - STEP 2: Does the patient have slight difficulty recognizing frequently encountered people, daily routines, or executing requests without the need for repetition or using self-initiated or environmental cues to remember? Yes. MEMORY - SCORE: 6-LETI SIGNATURE PANEL: The following modified sections: Eating - Score, Grooming - Score, Bathing - Score, Dressing - Upper Body - Score, Dressing - Lower Body - Score, Toileting - Score, Bladder Management - Score, Bowel Man agement - Score, Transfers: Bed, Chair, Wheelchair - Score, Transfers: Toilet - Score, Transfers: Nette wer - Score, Transfers: Tub - Score, Locomotion: Walk - Score, Locomotion: Wheelchair - Score, Compre hension - Score, Expression - Score, Social Interaction - Score, Problem Solving - Score, Memory - Sc ore were [electronically] signed by Jv SantamariaNCarlos on FriJul 23 2018 03:53:49 GMT-0500 ( Central Daylight Time)
[2018-07-23 06:46] LABS: Absolute Lymphocytes (CBC) 1.2 K/uL (0.7-4.9); Absolute Monocytes 0.3 K/uL (0.1-1.3); Absolute Neutrophil 2.3 K/uL (1.8-8.0); Basophils % 0.7 % (0-1.3); Hematocrit 25.6 % (36.0-45.0); Lymphocytes % 30.2 % (15.3-44.8); MCV 88.8 fL (80-100); MPV 7.7 fL (7.6-11.3); Monocytes % 8.4 % (3.3-12.3); RBC Red Blood Cell Count 2.88 M/uL (3.86-4.86)
[2018-07-23 07:04] LABS: Albumin 2.5 g/dL (3.4-5.0); Magnesium 2.6 mg/dL (1.8-2.4); Potassium 3.7 mmol/L (3.5-5.1); Prealbumin 13.3 mg/dL (20-40)
[2018-07-23] MEDS: LIDOCAINE 5% PATCH TOP SCH (07:25)
[2018-07-23] MEDS: PANTOPRAZOLE 40MG TABLET PO SCH (07:25)
[2018-07-23] MEDS: ENOXAPARIN 40 MG/0.4 ML SQ SCH (07:25)
[2018-07-23] MEDS: ALBUTEROL 2.5 MG/3 ML NEB SOL NEB SCH ×2 (07:35→20:35)
[2018-07-23] MEDS: HYDROCODONE/APAP 7.5/325 MG TAB PO PRN ×2 (07:42→16:44)
[2018-07-23] MEDS: PROMOD 30 ML DOSE PO SCH ×2 (08:19→20:42)
[2018-07-23] MEDS: GABAPENTIN 300 MG CAP PO SCH ×2 (08:20→20:43)
[2018-07-23] MEDS: METOPROLOL XL 50 MG TAB PO SCH (08:20)
[2018-07-23] MEDS: ASPIRIN EC 81 MG TAB PO SCH (08:20)
[2018-07-23] MEDS: LOSARTAN POTASSIUM 50 MG TABLET PO SCH (08:20)
[2018-07-23] MEDS: FERROUS SULFATE 325 MG TAB PO SCH (08:20)
[2018-07-23] MEDS: MAGNESIUM OXIDE 400 MG TAB PO SCH (08:21)
[2018-07-23] MEDS: FUROSEMIDE 20 MG TABLET PO SCH (08:21)
[2018-07-23] MEDS: FE SULF/FA/VIT B COMP & C TAB PO SCH (08:21)
[2018-07-23] MEDS: Anoro Ellipta 1 PUFF IH SCH (08:37)
[2018-07-23] MEDS: [UNRECOGNIZED DRUG - REMARK] NAS SCH (08:37)
--- NOTE | 2018-07-23 13:01 | FAST ---
SHIFT START DATE/TIME: 07/23/2018 07:00 (CDT) SHIFT END DATE/TIME: 07/23/2018 19:00 (CDT) NAME MARS AUGUSTIN DATE OF : 1930 DATE OF ADMISSION: 07/14/2018 17:52 (CDT) PHONE: AGE: 88 [facility]# [phone] GENDER: Female ENCOUNTER PHYSICIAN: Dr. Anthony Ybarra M.D. ADMISSION DIAGNOSIS: - Orthopaedic Disorders 08 - Other Orthopaedic (08.9) Right Patella Fracture. Right Shoulder Avulsion Fracture. Left 1st Proximal Phalanx Fracture. EATING: EATING - STEP 1: Does the patient require assistance when eating? Yes. EATING - STEP 2: Does the patient require the assistance of a helper? No, patient only requires an assistive device, O R s/he takes more than reasonable time to eat, OR there is a safety concern, OR s/he requires modifie d food consistency EATING - SCORE: 6-LETI GROOMING: Comb/brush hair Oral care Wash, rinse, and dry face Wash, rinse, and dry hands GROOMING - STEP 1: Does the patient require assistance when grooming? Yes. GROOMING - STEP 2: Does the patient require the assistance of a helper? No. The patient only requires an assistive devic e, OR takes more than reasonable time to groom, OR there is a concern for safety as the patient groom s GROOMING - SCORE: 6-LETI BATHING: Activity did not occur on this shift BATHING - SCORE: 0-UNK DRESSING - UPPER BODY: T-shirt/pullover shirt (four steps) ARTICLES SCORE Total number of steps: 4 DRESSING - UPPER BODY - STEP 1: Does the patient require help when dressing above the waist? Yes. DRESSING - UPPER BODY - STEP 2: Does the patient require the assistance of a helper? Yes. DRESSING - UPPER BODY - STEP 3: Does the helper touch the patient while dressing? Yes. DRESSING - UPPER BODY - STEP 4: How many of the total steps does the patient complete on his/her own? 2 DRESSING - UPPER BODY - SCORE: 3-MOD DRESSING - LOWER BODY: ARTICLES SCORE Total number of steps: 7 DRESSING - LOWER BODY - STEP 1: Does the patient require help when dressing below the waist? Yes. DRESSING - LOWER BODY - STEP 2: Does the patient require the assistance of a helper? Yes. DRESSING - LOWER BODY - STEP 3: Does the helper touch the patient while dressing? Yes. DRESSING - LOWER BODY - STEP 4: How many of the total steps does the patient complete on his/her own? 2 DRESSING - LOWER BODY - STEP 5: Does patient require total assistance for dressing below the waist such as the helper holding clothin g and performing basically all the activities? No. DRESSING - LOWER BODY - SCORE: 2-MAX TOILETING: TOILETING - STEP 1: Does the patient require assistance with toileting? Yes. TOILETING - STEP 2: Does the patient require the assistance of a helper? Yes. TOILETING - STEP 3: How much assistance does the patient require from the helper? Hands-on assistance from the helper TOILETING - STEP 4: Of the 3 tasks: 1) Adjusting clothing prior to use, 2) Cleansing of perineal area, 3) Adjusting clot neda after use; How many tasks does the patient perform WITHOUT assistance of the helper? Two tasks TOILETING - SCORE: 3-MOD BLADDER MANAGEMENT: BLADDER MANAGEMENT - STEP 1: Does the patient control the bladder completely and intentionally without equipment or devices or med ications, and is always continent? No. BLADDER MANAGEMENT - STEP 2: Does the patient require the assistance of a helper? No, patient requires and independently uses an a ssistive device, such as a urinal, bedpan, bedside commode, catheter, absorbent pad, or collecting de vice BLADDER MANAGEMENT - SCORE: 6-LETI BOWEL MANAGEMENT: Activity did not occur on this shift BOWEL MANAGEMENT - SCORE: 7-IND TRANSFERS: BED, CHAIR, WHEELCHAIR: TRANSFERS: BED, CHAIR, WHEELCHAIR - STEP 1: Does the patient require assistance with bed, chair, or wheelchair transfers? Yes. TRANSFERS: BED, CHAIR, WHEELCHAIR - STEP 2: Does the patient require the assistance of a helper? Yes. TRANSFERS: BED, CHAIR, WHEELCHAIR - STEP 3: How much assistance does the patient require from the helper? Lifting of the patient TRANSFERS: BED, CHAIR, WHEELCHAIR - STEP 4: Does the helper lift the patient ONLY up? ONLY down? Up AND Down? ONLY up. TRANSFERS: BED, CHAIR, WHEELCHAIR - SCORE: 3-MOD TRANSFERS: TOILET: TRANSFERS: TOILET - STEP 1: Does the patient require assistance with toilet transfers? Yes. TRANSFERS: TOILET - STEP 2: Does the patient require the assistance of a helper? Yes. TRANSFERS: TOILET - STEP 3: How much assistance does the patient require from the helper? Patient performs half or more of the tr ansferring tasks TRANSFERS: TOILET - STEP 4: Does the patient need only incidental help such as contact guard or steadying during toilet transfer? Yes. TRANSFERS: TOILET - SCORE: 4-MIN TRANSFERS: SHOWER: Activity did not occur on this shift TRANSFERS: SHOWER - SCORE: 0-UNK TRANSFERS: TUB: Activity did not occur on this shift TRANSFERS: TUB - SCORE: 0-UNK LOCOMOTION: WALK: Activity did not occur on this shift LOCOMOTION: WALK - SCORE: 0-UNK LOCOMOTION: WHEELCHAIR: Activity did not occur on this shift LOCOMOTION: WHEELCHAIR - SCORE: 0-UNK COMPREHENSION: COMPREHENSION: TYPE: Both COMPREHENSION - STEP 1: Does the patient require help to understand complex and abstract ideas (such as current events, finan ny, discharge planning, medical issues, relationships, etc)? No. COMPREHENSION - STEP 2: Does the patient need extra time, require an assistive device (such as glasses, hearing aids, or an a ugmentative communication system), OR does s/he have mild difficulty expressing complex and abstract ideas (including mild dysarthria or mild word-finding problems)? Yes. COMPREHENSION - SCORE: 6-LETI EXPRESSION EXPRESSION: TYPE: Both EXPRESSION - STEP 1: Does the patient require help expressing complex and abstract ideas (such as current events, finances , discharge planning, medical issues, relationships, etc)? Yes. EXPRESSION - STEP 2: Does the patient require help to express basic necessities or ideas (such as hunger, thirst, sleep, s afety, daily schedule, room location, or discomfort) half or more of the time? No. EXPRESSION - STEP 3: How often does the patient need help to express directions and conversation about basic needs? Less t stephenson 10% of the time EXPRESSION - SCORE: 5-SUP SOCIAL INTERACTION: SOCIAL INTERACTION - STEP 1: Does the patient require a helper to interact with others in social and therapeutic situations? No. SOCIAL INTERACTION - STEP 2: Does the patient need extra time in social situations, OR does s/he interact with staff, other patien ts, and family members ONLY in structured environments, OR does s/he require medication for social in teraction? Yes, patient needs extra time SOCIAL INTERACTION - SCORE: 6-LETI PROBLEM SOLVING: PROBLEM SOLVING - STEP 1: Does the patient need help to solve complex problems such as managing a checking account or confronti ng interpersonal problems? No. PROBLEM SOLVING - STEP 2: Does the patient require extra time to make decisions or solve problems, OR does s/he have slight dif ficulty reading, initiating, or self-correcting in unfamiliar situations? Yes, patient needs extra ti me. PROBLEM SOLVING - SCORE: 6-LETI MEMORY: MEMORY - STEP 1: Does the patient need help to remember frequently encountered people, daily routines, and executing r equests? No. MEMORY - STEP 2: Does the patient have slight difficulty recognizing frequently encountered people, daily routines, or executing requests without the need for repetition or using self-initiated or environmental cues to remember? Yes. MEMORY - SCORE: 6-LETI SIGNATURE PANEL: The following modified sections: Eating - Score, Grooming - Score, Bathing - Score, Dressing - Upper Body - Score, Dressing - Lower Body - Score, Toileting - Score, Bladder Management - Score, Bowel Man agement - Score, Transfers: Bed, Chair, Wheelchair - Score, Transfers: Toilet - Score, Transfers: Nette wer - Score, Transfers: Tub - Score, Locomotion: Walk - Score, Locomotion: Wheelchair - Score, Compre hension - Score, Expression - Score, Social Interaction - Score, Problem Solving - Score, Memory - Sc ore were [electronically] signed by Lazarus Erazo on FriJul 23 2018 13:00:41 GMT-0500 (Central Daylight Time)
--- NOTE | 2018-07-23 17:44 | R.PN ---
ENCOUNTER DATE AND TIME: 07/23/2018 17:41 (CDT) NAME MARS AUGUSTIN DATE OF : 1930 DATE OF ADMISSION: 07/14/2018 17:52 (CDT) Right Patella FractureRight Shoulder Avulsion FractureLeft 1st Proximal Phalanx FractureCHIEF COMPLAI NT: Right patella fracture, right shoulder avulsion fracture SUBJECTIVE: Pt denied any Shortness of Breath. Pt denied any depression. Ambulated 55' with minimum assistance using a left hemiwalker. Propelled wheelchair 200' with contact guard assistance. VITAL SIGNS Temperature: 98.3 F SBP/DBP: 120/57 Pulse: 81 Resp: 14 MEDICATION ALLERGIES: Ibuprofen Codeine Penicillin ENVIRONMENTAL ALLERGIES: None Known - Substance Allergies None Known - Other Allergies None Known NURSING: - Shower allowing shower - Skin care per protocol PRECAUTIONS: - Weight Bearing Precaution NWB right UE WBAT right LE ACTIVITIES OOB only with supervision THERAPIES: - Occupational Therapy Evaluate and Treat. - Physical Therapy Evaluate and Treat. PHYSICAL EXAM - Gen Alert and awake Lying in bed No apparent distress Oriented to: person, time, and place - Skin No skin breakdown. Normacephalic - Eyes No abnormalities - ENMT No abnormalities - Neck No abnormalities - CVS RRR - Chest Clear - Abd Soft - GI nondistended Deferred - No abnormalities - Ext No significant edema - MSK 4+/5 weakness in right lower extremity - Neuro 4/5 strength right upper and lower extremities. - Psych No abnormalities ASSESSMENT: Pt. is a 88 yo Right-handed white female.On 07/10/2018 she was admitted to [facility] with diagnosis Right Patella Fracture.Her impairment category is Orthopaedic Disorders 08 - O ther Orthopaedic (08.9).Pre-morbidly, Pt. was independent/mod-I in Social Cognition, Communication, S phincter Control, Locomotion, Self-Care, and Transfers Control; and she had good Sphincter Control.Cu rrently, she has deficits of Locomotion, Self-Care, Transfers Control, Safety Awareness, Balance, and Endurance.Pt. is now referred to [facility] for acute in-patient rehabilitati on in order to maximize patient's functional independence in activities of daily living, strength, RO M, and mobility.- Rehab Goal Patient has realistic goal of being discharged at assistance level 6-Betsy to reside at Home with Fam sukumar/Relatives. MDM/PLAN: - Physical Therapy Weakness - to improve, our physical therapists will perform initial evaluation of pt's status upon a dmission and devise an individualized program for Aquatic Therapy, Neuromuscular Reeducation, and Str engthening Poor balance - to improve, our physical therapists will perform initial evaluation of pt's status up on admission and devise an individualized program for Balance Training Inability to transfer - to improve, our physical therapists will perform initial evaluation of pt's status upon admission and devise an individualized program for Bed mobility Decreased range of motion - to improve, our physical therapists will perform initial evaluation of p t's status upon admission and devise an individualized program for increasing patient's Range of Kuldeep on. Need in caregiver upon discharge - to improve, our physical therapists will perform initial evaluati on of pt's status upon admission and devise an individualized program for Caregiver Training Poor endurance - to improve, our physical therapists will perform initial evaluation of pt's status upon admission and devise an individualized program for Endurance Training Gait dysfunction - to improve, our physical therapists will perform initial evaluation of pt's statu s upon admission and devise an individualized program for Gait Training, and Wheel Chair mobility Need for home safety evaluation - to improve, our physical therapists will perform initial evaluatio n of pt's status upon admission and devise an individualized program for Home Evaluation New precaution - to improve, our physical therapists will perform initial evaluation of pt's status upon admission and devise an individualized program for Patient precaution education Edema - to improve, our physical therapists will perform initial evaluation of pt's status upon admi ssion and devise an individualized program for Elevation Training, and Lymphedema Therapy - Occupational Therapy Weakness - to improve, our occupation therapists will perform initial evaluation of pt's status upon admission and devise an individualized program for Aquatic Therapy, Balance, Endurance, UE ROM, and UE strengthening ADL deficits - to improve, our occupation therapists will perform initial evaluation of pt's status upon admission and devise an individualized program for Bathing, Bed mobility, Community Reintegratio n, Cooking, Dressing, Eating, Fine Motor Skills, Grooming, Homemaking, Kitchen Mobility, Laundry, Pat ient Education, Safety Awareness, Splinting - Positioning, Transfers(Toilet, Tub, Shower), and Wheel Chair Management Need for rn homecare - to improve, our occupation therapists will perform initial evaluation of pt's status upon admission and devise an individualized program for Caregiver Training - Diet Type Continue Regular - Diet - Liquid Texture Continue Regular - Tube Feed Continue N/A - Weight Bearing Precaution NWB right UE WBAT right LE - Skin care per protocol - Diet - Solid Texture Continue Regular - Shower allowing shower - Balance for Weakness - Bed mobility for ADL deficits FUNCTIONAL STATUS: UPDATED AT WEEKLY TEAM CONFERENCE - Bladder Same accident frequency: 7-Ind - No accidents in the past 7 days - Bowel Same accident frequency: 7-Ind - No accidents in the past 7 days - Walking Same score based on distance walked: 0(N/A) - Wheelchair Same score based on distance traveled: 0(N/A) FUNCTIONAL STATUS: - Self-Care A. Eating Mary B. Grooming Mary C. Bathing Dep D. Dressing - Upper Dep E. Dressing - Lower Dep F. Toileting modA - Sphincter Control G: Bladder control Dep H: Bowel control Ind - Transfers Control I. Bed/Chair/Wheelchair modA J. Toilet modA K. Tub/Shower ADNO - Locomotion L. Walk/Wheelchair (B) modA M. Stairs ADNO - Communication N. Comprehension (B) Ind O. Expression (B) Ind - Social Cognition P. Social Interaction Ind Q. Problem Solving Ind R. Memory Ind - Endurance Fair - Balance Fair - Safety Awareness Fair CURRENT FUNC. DEFICITS: Locomotion, Self-Care, Transfers Control, Safety Awareness, Balance, and Endurance SIGNATURE PANEL: (CDT)
[2018-07-23] MEDS: DOCUSATE NA/SENNA CONC 1 TAB PO SCH (20:43)
[2018-07-23] MEDS: DIPHENHYDRAMINE 25 MG TAB/CAP PO PRN (20:43)
--- NOTE | 2018-07-24 02:50 | PN ---
Date of Progress Note: 07/23/2018 Subjective: The patient was seen this morning for followup. No new complaints or problems reported by her. Objective: General: Lying in bed, not in distress. Vital Signs: Reviewed. HEENT: Unremarkable. Lungs: Clear to auscultation. Heart: Sounds normal. Abdomen: Soft. Bowel sounds normal. No guarding, rigidity, tenderness, or distention. Extremities: No leg edema. Laboratory Data: White count 4, hemoglobin 8.7, platelets 283. Sodium 141, potassium 3.7, chloride 101, bicarb 37, BUN 27, creatinine 1.20, glucose 102. Impression: 1.Right patella fracture. 2.Right shoulder fracture. 3.Hypertension. 4.Anemia. 5.Chronic obstructive pulmonary disease. Plan: Continue current medication. We will continue physical therapy under guidance of Dr. Ybarra . Continue nebulizer treatment. Her blood pressure is under good control. She did have bowel movem ent yesterday, so constipation problem has resolved now. Dr. Ybarra will take over this patient's care starting tomorrow in my absence for next 3 days. GIA/MODL Voice ID: [id number] Report ID: [id number]
--- NOTE | 2018-07-24 04:12 | FAST ---
SHIFT START DATE/TIME: 07/23/2018 19:00 (CDT) SHIFT END DATE/TIME: 07/24/2018 07:00 (CDT) NAME MARS AUGUSTIN DATE OF : 1930 DATE OF ADMISSION: 07/14/2018 17:52 (CDT) PHONE: AGE: 88 [facility]# [id number] GENDER: Female ENCOUNTER PHYSICIAN: Dr. Anthony Ybarra M.D. ADMISSION DIAGNOSIS: - Orthopaedic Disorders 08 - Other Orthopaedic (08.9) Right Patella Fracture. Right Shoulder Avulsion Fracture. Left 1st Proximal Phalanx Fracture. EATING: EATING - STEP 1: Does the patient require assistance when eating? Yes. EATING - STEP 2: Does the patient require the assistance of a helper? Yes. EATING - STEP 3: Does the patient perform half or more of the eating tasks? Yes. EATING - STEP 4: Does the patient need only supervision, cuing, coaxing OR help to apply an orthosis OR help to cut fo od, open containers, pour liquids, or butter bread? Yes. EATING - SCORE: 5-SUP GROOMING: Activity did not occur on this shift GROOMING - SCORE: 0-UNK BATHING: Activity did not occur on this shift BATHING - SCORE: 0-UNK DRESSING - UPPER BODY: Patient is not dressing in public clothing ARTICLES SCORE Total number of steps: 0 DRESSING - UPPER BODY - SCORE: 0-UNK DRESSING - LOWER BODY: Patient is not dressing in public clothing ARTICLES SCORE Total number of steps: 0 DRESSING - LOWER BODY - SCORE: 0-UNK TOILETING: TOILETING - STEP 1: Does the patient require assistance with toileting? Yes. TOILETING - STEP 2: Does the patient require the assistance of a helper? Yes. TOILETING - STEP 3: How much assistance does the patient require from the helper? Hands-on assistance from the helper TOILETING - STEP 4: Of the 3 tasks: 1) Adjusting clothing prior to use, 2) Cleansing of perineal area, 3) Adjusting clot neda after use; How many tasks does the patient perform WITHOUT assistance of the helper? No tasks; h elper performs all three tasks TOILETING - SCORE: 1-DEP BLADDER MANAGEMENT: Patient requires assistance from two helpers when using bedpan. BLADDER MANAGEMENT - SCORE: 1-DEP BLADDER MANAGEMENT - FREQUENCY OF ACCIDENTS: BLADDER MANAGEMENT(FA) - STEP 1: How many accidents has the patient had during the current shift? 00 BOWEL MANAGEMENT: Activity did not occur on this shift BOWEL MANAGEMENT - SCORE: 7-IND TRANSFERS: BED, CHAIR, WHEELCHAIR: Patient requires more than one helper and/or the use of a mechanical lift is utilized TRANSFERS: BED, CHAIR, WHEELCHAIR - SCORE: 1-DEP TRANSFERS: TOILET: Patient requires more than one helper and/or the use of a mechanical lift is utilized TRANSFERS: TOILET - SCORE: 1-DEP TRANSFERS: SHOWER: Activity did not occur on this shift TRANSFERS: SHOWER - SCORE: 0-UNK TRANSFERS: TUB: Activity did not occur on this shift TRANSFERS: TUB - SCORE: 0-UNK LOCOMOTION: WALK: Activity did not occur on this shift LOCOMOTION: WALK - SCORE: 0-UNK LOCOMOTION: WHEELCHAIR: Activity did not occur on this shift LOCOMOTION: WHEELCHAIR - SCORE: 0-UNK COMPREHENSION: COMPREHENSION: TYPE: Both COMPREHENSION - STEP 1: Does the patient require help to understand complex and abstract ideas (such as current events, finan ny, discharge planning, medical issues, relationships, etc)? No. COMPREHENSION - STEP 2: Does the patient need extra time, require an assistive device (such as glasses, hearing aids, or an a ugmentative communication system), OR does s/he have mild difficulty expressing complex and abstract ideas (including mild dysarthria or mild word-finding problems)? Yes. COMPREHENSION - SCORE: 6-LETI EXPRESSION EXPRESSION: TYPE: Both EXPRESSION - STEP 1: Does the patient require help expressing complex and abstract ideas (such as current events, finances , discharge planning, medical issues, relationships, etc)? No. EXPRESSION - STEP 2: Does the patient need extra time, require an assistive device (such as augmentive communication syste m or a communication board), OR does s/he have mild difficulty expressing complex and abstract ideas (including mild dysarthria or mild word-find problems)? No. EXPRESSION - SCORE: 7-IND SOCIAL INTERACTION: SOCIAL INTERACTION - STEP 1: Does the patient require a helper to interact with others in social and therapeutic situations? No. SOCIAL INTERACTION - STEP 2: Does the patient need extra time in social situations, OR does s/he interact with staff, other patien ts, and family members ONLY in structured environments, OR does s/he require medication for social in teraction? No. SOCIAL INTERACTION - SCORE: 7-IND PROBLEM SOLVING: PROBLEM SOLVING - STEP 1: Does the patient need help to solve complex problems such as managing a checking account or confronti ng interpersonal problems? No. PROBLEM SOLVING - STEP 2: Does the patient require extra time to make decisions or solve problems, OR does s/he have slight dif ficulty reading, initiating, or self-correcting in unfamiliar situations? No. PROBLEM SOLVING - SCORE: 7-IND MEMORY: MEMORY - STEP 1: Does the patient need help to remember frequently encountered people, daily routines, and executing r equests? No. MEMORY - STEP 2: Does the patient have slight difficulty recognizing frequently encountered people, daily routines, or executing requests without the need for repetition or using self-initiated or environmental cues to remember? No. MEMORY - SCORE: 7-IND SIGNATURE PANEL: The following modified sections: Eating - Score, Grooming - Score, Bathing - Score, Dressing - Upper Body - Score, Dressing - Lower Body - Score, Toileting - Score, Bladder Management - Score, Bowel Man agement - Score, Transfers: Bed, Chair, Wheelchair - Score, Transfers: Toilet - Score, Transfers: Nette wer - Score, Transfers: Tub - Score, Locomotion: Walk - Score, Locomotion: Wheelchair - Score, Compre hension - Score, Expression - Score, Social Interaction - Score, Problem Solving - Score, Memory - Sc ore were [electronically] signed by Jv SantamariaNCarlos on FriJul 24 2018 04:10:57 T-0500 ( Central Daylight Time)
[2018-07-24] MEDS: ENOXAPARIN 40 MG/0.4 ML SQ SCH (06:57)
[2018-07-24] MEDS: ALBUTEROL 2.5 MG/3 ML NEB SOL NEB SCH ×2 (07:30→19:57)
[2018-07-24] MEDS: METOPROLOL XL 50 MG TAB PO SCH (08:00)
[2018-07-24] MEDS: MAGNESIUM OXIDE 400 MG TAB PO SCH (08:12)
[2018-07-24] MEDS: FERROUS SULFATE 325 MG TAB PO SCH (08:12)
[2018-07-24] MEDS: PANTOPRAZOLE 40MG TABLET PO SCH (08:12)
[2018-07-24] MEDS: ASPIRIN EC 81 MG TAB PO SCH (08:12)
[2018-07-24] MEDS: FUROSEMIDE 20 MG TABLET PO SCH (08:12)
[2018-07-24] MEDS: FE SULF/FA/VIT B COMP & C TAB PO SCH (08:12)
[2018-07-24] MEDS: GABAPENTIN 300 MG CAP PO SCH ×2 (08:13→19:28)
[2018-07-24] MEDS: LOSARTAN POTASSIUM 50 MG TABLET PO SCH (08:13)
[2018-07-24] MEDS: Anoro Ellipta 1 PUFF IH SCH (08:13)
[2018-07-24] MEDS: LIDOCAINE 5% PATCH TOP SCH (08:14)
[2018-07-24] MEDS: [UNRECOGNIZED DRUG - REMARK] NAS SCH (08:14)
[2018-07-24] MEDS: PROMOD 30 ML DOSE PO SCH ×2 (08:15→19:29)
[2018-07-24] MEDS: HYDROCODONE/APAP 7.5/325 MG TAB PO PRN ×3 (08:15→19:29)
--- NOTE | 2018-07-24 09:33 | P.RH.PN ---
Estimated Length of Stay: 14 Expected Discharge Date: 07/28/18 Discharge Disposition Plan: Home Family Support: Yes Vital Signs: Last Vital Signs Temp 96.8 F 07/24/18 06:20 Pulse 68 07/24/18 08:12 Resp 18 07/24/18 06:20 BP 123/51 L 07/24/18 08:12 Pulse Ox 93 07/24/18 06:20 Laboratory: Laboratory Last Values WBC 4.0 K/uL (4.3-10.9) L 07/23/18 06:29 RBC 2.88 M/uL (3.86-4.86) L 07/23/18 06:29 Hgb 8.7 g/dL (12.0-15.0) L 07/23/18 06:29 Hct 25.6 % (36.0-45.0) L 07/23/18 06:29 MCV 88.8 fL (80-100) 07/23/18 06:29 MCH 30.0 pg (27.0-35.0) 07/23/18 06:29 MCHC 33.8 g/dL (32.0-36.0) 07/23/18 06:29 RDW 15.3 % (12.1-15.2) H 07/23/18 06:29 Plt Count 283 K/uL (152-406) 07/23/18 06:29 MPV 7.7 fL (7.6-11.3) 07/23/18 06:29 Neutrophils % 55.7 % (41.7-73.7) 07/23/18 06:29 Lymphocytes % 30.2 % (15.3-44.8) 07/23/18 06:29 Monocytes % 8.4 % (3.3-12.3) 07/23/18 06:29 Eosinophils % 5.0 % (0-4.4) H 07/23/18 06:29 Basophils % 0.7 % (0-1.3) 07/23/18 06:29 Absolute Neutrophils 2.3 K/uL (1.8-8.0) 07/23/18 06:29 Absolute Lymphocytes 1.2 K/uL (0.7-4.9) 07/23/18 06:29 Absolute Monocytes 0.3 K/uL (0.1-1.3) 07/23/18 06:29 Absolute Eosinophils 0.2 K/uL (0-0.5) 07/23/18 06:29 Absolute Basophils 0.0 K/uL (0-0.5) 07/23/18 06:29 Sodium 141 mmol/L (136-145) 07/23/18 06:29 Potassium 3.7 mmol/L (3.5-5.1) 07/23/18 06:29 Chloride 101 mmol/L (98-107) 07/23/18 06:29 Carbon Dioxide 37 mmol/L (21-32) H 07/23/18 06:29 BUN 27 mg/dL (7-18) H 07/23/18 06:29 Creatinine 1.20 mg/dL (0.55-1.3) 07/23/18 06:29 Estimated GFR 42 mL/min (=/>90) L 07/23/18 06:29 Glucose 102 mg/dL (74-106) 07/23/18 06:29 Calcium 8.6 mg/dL (8.5-10.1) 07/23/18 06:29 Magnesium 2.6 mg/dL (1.8-2.4) H 07/23/18 06:29 Albumin 2.5 g/dL (3.4-5.0) L 07/23/18 06:29 Prealbumin 13.3 mg/dL (20-40) L 07/23/18 06:29 Urine Color Yellow 07/14/18 21: Urine Appearance Clear 07/14/18 21: Urine pH 6.0 (5.0-7.0) 07/14/18 21: Ur Specific [place] 1.010 (1.005-1.030) 07/14/18 21: Urine Ketones Negative (NEG) 07/14/18 21: Urine Blood Negative (NEG) 07/14/18 21: Urine Nitrite Negative (NEG) 07/14/18 21: Urine Bilirubin Negative (NEG) 07/14/18 21: Urine Urobilinogen 0.2 mg/dL (0.2-1.0) 07/14/18 21:27 Ur Leukocyte Esterase Negative (NEG) 07/14/18 21: Urine RBC <5 /HPF (NONE SEEN) 07/14/18 21: Urine WBC <5 /HPF (<5) 07/14/18 21:27 Ur Squamous Epith Cells <5 /HPF (NONE SEEN) 07/14/18 21:27 Urine Bacteria <20 /HPF (<20) 07/14/18 21:27 Urine Culture Reflexed Not needed 07/14/18 21:27 Urine Glucose Negative (NEG) 07/14/18 21:27 Urine Total Protein Negative (NEG) 07/14/18 21:27 Weight: 199 lb Wound Present: Yes Closed Surgical Incision Present: No Negative Pressure Wound Therapy Present: No Physician Update: Her Hgb and HCT. She is on hemocyte plus and promod. She is doing fairly well with occupational therapy by wants to rely on others to assist her with activities of daily living. She is only ambulating about 35' with moderate assitance with transfers. She is followed by Dr. Mora for her fractures. Medication Issues: DVT Prophylaxis - Lovenox 40mg SQ Daily Pain Issues: [place] 7.5/325mg Q6H PRN. Tramadol 50mg Q6H PRN Functional Improvement: Patient is progressing w/ strenthening of R LE and improvement of gait ability. Patient continues to present w/ difficulty of sit > stand transfers. Functional Improvement Occupational Therapy: Pt can benifit with further therapy to address pt's UB strength using the left UE for adl and for functional transfers. cont to increase pt's static standing balance and activity tolerance for clothing mgmt and for bathing. Cont to increase pt's endurance for adl tasks. Cont to train and educate pt on LB dressing using A/E and safety and energy conservation techniques for adl and functional tasks. Cont with the POC and the goals by the supervising OTR. Summary: Patient's care plan and intermediate goals have been reviewed and revised as necessary. Please see the Rehabilitation Signature page for all necessary signatures.
--- NOTE | 2018-07-24 15:02 | FAST ---
ENCOUNTER DATE AND TIME: 07/24/2018 08:00 (CDT) NAME MARS AUGUSTIN DATE OF : 1930 DATE OF ADMISSION: 07/14/2018 17:52 (CDT) PHONE: AGE: 88 N# [id number] GENDER: Female ENCOUNTER PHYSICIAN: Dr. Anthony Ybarra M.D. ADMISSION DIAGNOSIS: - Orthopaedic Disorders 08 - Other Orthopaedic (08.9) Right Patella Fracture. Right Shoulder Avulsion Fracture. Left 1st Proximal Phalanx Fracture. EATING: Activity did not occur on this shift EATING - SCORE: 0-UNK GROOMING: Activity did not occur on this shift GROOMING - SCORE: 0-UNK BATHING: Activity did not occur on this shift BATHING - SCORE: 0-UNK DRESSING - UPPER BODY: Activity did not occur on this shift Patient is not dressing in public clothing ARTICLES SCORE Total number of steps: 0 DRESSING - UPPER BODY - SCORE: 0-UNK DRESSING - LOWER BODY: Activity did not occur on this shift Patient is not dressing in public clothing ARTICLES SCORE Total number of steps: 0 DRESSING - LOWER BODY - SCORE: 0-UNK TOILETING: Activity did not occur on this shift TOILETING - SCORE: 0-UNK BLADDER MANAGEMENT: Activity did not occur on this shift BLADDER MANAGEMENT - SCORE: 7-IND BOWEL MANAGEMENT: Activity did not occur on this shift BOWEL MANAGEMENT - SCORE: 7-IND TRANSFERS: BED, CHAIR, WHEELCHAIR: TRANSFERS: BED, CHAIR, WHEELCHAIR - STEP 1: Does the patient require assistance with bed, chair, or wheelchair transfers? Yes. TRANSFERS: BED, CHAIR, WHEELCHAIR - STEP 2: Does the patient require the assistance of a helper? Yes. TRANSFERS: BED, CHAIR, WHEELCHAIR - STEP 3: How much assistance does the patient require from the helper? Lifting of the legs TRANSFERS: BED, CHAIR, WHEELCHAIR - STEP 4: How many legs does the patient require the helper to lift? both legs TRANSFERS: BED, CHAIR, WHEELCHAIR - SCORE: 3-MOD TRANSFERS: TOILET: Activity did not occur on this shift TRANSFERS: TOILET - SCORE: 0-UNK TRANSFERS: SHOWER: Activity did not occur on this shift TRANSFERS: SHOWER - SCORE: 0-UNK TRANSFERS: TUB: Activity did not occur on this shift TRANSFERS: TUB - SCORE: 0-UNK LOCOMOTION: WALK: LOCOMOTION: WALK - STEP 1: Does the patient need help to walk 150 feet? Yes. LOCOMOTION: WALK - STEP 2: How much assistance does the patient require to walk a minimum of 150 feet? Patient walks less than 1 50 feet - but more than 50 feet - with the assistance of only one helper LOCOMOTION: WALK - SCORE: 2-MAX LOCOMOTION: WHEELCHAIR: LOCOMOTION: WHEELCHAIR - STEP 1: Does the patient need help to go 150 feet in a wheelchair? Yes. LOCOMOTION: WHEELCHAIR - STEP 2: How much assistance does the patient need from the helper? Only incidental help such as around corner s or over thresholds LOCOMOTION: WHEELCHAIR - SCORE: 4-MIN LOCOMOTION: STAIRS: Activity did not occur on this shift LOCOMOTION: STAIRS - SCORE: 0-UNK COMPREHENSION: COMPREHENSION - SCORE: 0-UNK EXPRESSION EXPRESSION - SCORE: 0-UNK SOCIAL INTERACTION: SOCIAL INTERACTION - SCORE: 0-UNK PROBLEM SOLVING: PROBLEM SOLVING - SCORE: 0-UNK MEMORY: MEMORY - SCORE: 0-UNK SIGNATURE PANEL: The following modified sections: Transfers: Bed, Chair, Wheelchair - Score, Transfers: Toilet - Score , Locomotion: Walk - Score, Locomotion: Wheelchair - Score, Locomotion: Stairs - Score were [electron ically] signed by Flavio Fernandez PTA on FriJul 24 2018 15:01:33 GMT-0500 (Central Daylight Time)
--- NOTE | 2018-07-24 15:03 | FAST ---
ENCOUNTER DATE AND TIME: 07/23/2018 08:00 (CDT) NAME MARS AUGUSTIN DATE OF : 1930 DATE OF ADMISSION: 07/14/2018 17:52 (CDT) PHONE: AGE: 88 N# [id number] GENDER: Female ENCOUNTER PHYSICIAN: Dr. Anthony Ybarra M.D. ADMISSION DIAGNOSIS: - Orthopaedic Disorders 08 - Other Orthopaedic (08.9) Right Patella Fracture. Right Shoulder Avulsion Fracture. Left 1st Proximal Phalanx Fracture. EATING: Activity did not occur on this shift EATING - SCORE: 0-UNK GROOMING: Activity did not occur on this shift GROOMING - SCORE: 0-UNK BATHING: Activity did not occur on this shift BATHING - SCORE: 0-UNK DRESSING - UPPER BODY: Activity did not occur on this shift Patient is not dressing in public clothing ARTICLES SCORE Total number of steps: 0 DRESSING - UPPER BODY - SCORE: 0-UNK DRESSING - LOWER BODY: Activity did not occur on this shift Patient is not dressing in public clothing ARTICLES SCORE Total number of steps: 0 DRESSING - LOWER BODY - SCORE: 0-UNK TOILETING: Activity did not occur on this shift TOILETING - SCORE: 0-UNK BLADDER MANAGEMENT: Activity did not occur on this shift BLADDER MANAGEMENT - SCORE: 7-IND BOWEL MANAGEMENT: Activity did not occur on this shift BOWEL MANAGEMENT - SCORE: 7-IND TRANSFERS: BED, CHAIR, WHEELCHAIR: TRANSFERS: BED, CHAIR, WHEELCHAIR - STEP 1: Does the patient require assistance with bed, chair, or wheelchair transfers? Yes. TRANSFERS: BED, CHAIR, WHEELCHAIR - STEP 2: Does the patient require the assistance of a helper? Yes. TRANSFERS: BED, CHAIR, WHEELCHAIR - STEP 3: How much assistance does the patient require from the helper? Lifting of the legs TRANSFERS: BED, CHAIR, WHEELCHAIR - STEP 4: How many legs does the patient require the helper to lift? both legs TRANSFERS: BED, CHAIR, WHEELCHAIR - SCORE: 3-MOD TRANSFERS: TOILET: Activity did not occur on this shift TRANSFERS: TOILET - SCORE: 0-UNK TRANSFERS: SHOWER: Activity did not occur on this shift TRANSFERS: SHOWER - SCORE: 0-UNK TRANSFERS: TUB: Activity did not occur on this shift TRANSFERS: TUB - SCORE: 0-UNK LOCOMOTION: WALK: Patient walks less than 50 feet LOCOMOTION: WALK - SCORE: 1-DEP LOCOMOTION: WHEELCHAIR: LOCOMOTION: WHEELCHAIR - STEP 1: Does the patient need help to go 150 feet in a wheelchair? Yes. LOCOMOTION: WHEELCHAIR - STEP 2: How much assistance does the patient need from the helper? Only incidental help such as around corner s or over thresholds LOCOMOTION: WHEELCHAIR - SCORE: 4-MIN LOCOMOTION: STAIRS: Activity did not occur on this shift LOCOMOTION: STAIRS - SCORE: 0-UNK COMPREHENSION: COMPREHENSION - SCORE: 0-UNK EXPRESSION EXPRESSION - SCORE: 0-UNK SOCIAL INTERACTION: SOCIAL INTERACTION - SCORE: 0-UNK PROBLEM SOLVING: PROBLEM SOLVING - SCORE: 0-UNK MEMORY: MEMORY - SCORE: 0-UNK SIGNATURE PANEL: The following modified sections: Transfers: Bed, Chair, Wheelchair - Score, Transfers: Toilet - Score , Locomotion: Walk - Score, Locomotion: Wheelchair - Score, Locomotion: Stairs - Score were [electron ically] signed by Flavio Fernandez PTA on FriJul 24 2018 15:02:49 GMT-0500 (Central Daylight Time)
[2018-07-24] MEDS: DOCUSATE NA/SENNA CONC 1 TAB PO SCH (19:28)
[2018-07-24] MEDS: DIPHENHYDRAMINE 25 MG TAB/CAP PO PRN (19:29)
--- NOTE | 2018-07-25 02:46 | FAST ---
SHIFT START DATE/TIME: 07/24/2018 19:00 (CDT) SHIFT END DATE/TIME: 07/25/2018 07:00 (CDT) NAME MARS AUGUSTIN DATE OF : 1930 DATE OF ADMISSION: 07/14/2018 17:52 (CDT) PHONE: AGE: 88 [facility]# [id number] GENDER: Female ENCOUNTER PHYSICIAN: Dr. Anthony Ybarra M.D. ADMISSION DIAGNOSIS: - Orthopaedic Disorders 08 - Other Orthopaedic (08.9) Right Patella Fracture. Right Shoulder Avulsion Fracture. Left 1st Proximal Phalanx Fracture. EATING: Activity did not occur on this shift EATING - SCORE: 0-UNK GROOMING: Oral care Wash, rinse, and dry face Wash, rinse, and dry hands GROOMING - STEP 1: Does the patient require assistance when grooming? Yes. GROOMING - STEP 2: Does the patient require the assistance of a helper? Yes. GROOMING - STEP 3: How much assistance does the patient require from the helper? Only prior equipment preparation/set up from the helper GROOMING - SCORE: 5-SUP BATHING: Activity did not occur on this shift BATHING - SCORE: 0-UNK DRESSING - UPPER BODY: Patient is not dressing in public clothing ARTICLES SCORE Total number of steps: 0 DRESSING - UPPER BODY - SCORE: 0-UNK DRESSING - LOWER BODY: Patient is not dressing in public clothing ARTICLES SCORE Total number of steps: 0 DRESSING - LOWER BODY - SCORE: 0-UNK TOILETING: TOILETING - STEP 1: Does the patient require assistance with toileting? Yes. TOILETING - STEP 2: Does the patient require the assistance of a helper? Yes. TOILETING - STEP 3: How much assistance does the patient require from the helper? Hands-on assistance from the helper TOILETING - STEP 4: Of the 3 tasks: 1) Adjusting clothing prior to use, 2) Cleansing of perineal area, 3) Adjusting clot neda after use; How many tasks does the patient perform WITHOUT assistance of the helper? No tasks; h monica performs all three tasks TOILETING - SCORE: 1-DEP BLADDER MANAGEMENT: BLADDER MANAGEMENT - STEP 1: Does the patient control the bladder completely and intentionally without equipment or devices or med ications, and is always continent? No. BLADDER MANAGEMENT - STEP 2: Does the patient require the assistance of a helper? No, patient requires and independently uses an a ssistive device, such as a urinal, bedpan, bedside commode, catheter, absorbent pad, or collecting de vice BLADDER MANAGEMENT - SCORE: 6-LETI BOWEL MANAGEMENT: Activity did not occur on this shift BOWEL MANAGEMENT - SCORE: 7-IND TRANSFERS: BED, CHAIR, WHEELCHAIR: TRANSFERS: BED, CHAIR, WHEELCHAIR - STEP 1: Does the patient require assistance with bed, chair, or wheelchair transfers? Yes. TRANSFERS: BED, CHAIR, WHEELCHAIR - STEP 2: Does the patient require the assistance of a helper? Yes. TRANSFERS: BED, CHAIR, WHEELCHAIR - STEP 3: How much assistance does the patient require from the helper? Lifting of the legs TRANSFERS: BED, CHAIR, WHEELCHAIR - STEP 4: How many legs does the patient require the helper to lift? both legs TRANSFERS: BED, CHAIR, WHEELCHAIR - SCORE: 3-MOD TRANSFERS: TOILET: TRANSFERS: TOILET - STEP 1: Does the patient require assistance with toilet transfers? Yes. TRANSFERS: TOILET - STEP 2: Does the patient require the assistance of a helper? Yes. TRANSFERS: TOILET - STEP 3: How much assistance does the patient require from the helper? Patient performs half or more of the tr ansferring tasks TRANSFERS: TOILET - STEP 4: Does the patient need only incidental help such as contact guard or steadying during toilet transfer? No. Patient needs more than incidental help TRANSFERS: TOILET - SCORE: 3-MOD TRANSFERS: SHOWER: Activity did not occur on this shift TRANSFERS: SHOWER - SCORE: 0-UNK TRANSFERS: TUB: Activity did not occur on this shift TRANSFERS: TUB - SCORE: 0-UNK LOCOMOTION: WALK: Activity did not occur on this shift LOCOMOTION: WALK - SCORE: 0-UNK LOCOMOTION: WHEELCHAIR: Activity did not occur on this shift LOCOMOTION: WHEELCHAIR - SCORE: 0-UNK COMPREHENSION: COMPREHENSION: TYPE: Both COMPREHENSION - STEP 1: Does the patient require help to understand complex and abstract ideas (such as current events, finan ny, discharge planning, medical issues, relationships, etc)? No. COMPREHENSION - STEP 2: Does the patient need extra time, require an assistive device (such as glasses, hearing aids, or an a ugmentative communication system), OR does s/he have mild difficulty expressing complex and abstract ideas (including mild dysarthria or mild word-finding problems)? Yes. COMPREHENSION - SCORE: 6-LETI EXPRESSION EXPRESSION: TYPE: Both EXPRESSION - STEP 1: Does the patient require help expressing complex and abstract ideas (such as current events, finances , discharge planning, medical issues, relationships, etc)? No. EXPRESSION - STEP 2: Does the patient need extra time, require an assistive device (such as augmentive communication syste m or a communication board), OR does s/he have mild difficulty expressing complex and abstract ideas (including mild dysarthria or mild word-find problems)? Yes. EXPRESSION - SCORE: 6-LETI SOCIAL INTERACTION: SOCIAL INTERACTION - STEP 1: Does the patient require a helper to interact with others in social and therapeutic situations? No. SOCIAL INTERACTION - STEP 2: Does the patient need extra time in social situations, OR does s/he interact with staff, other patien ts, and family members ONLY in structured environments, OR does s/he require medication for social in teraction? No. SOCIAL INTERACTION - SCORE: 7-IND PROBLEM SOLVING: PROBLEM SOLVING - STEP 1: Does the patient need help to solve complex problems such as managing a checking account or confronti ng interpersonal problems? No. PROBLEM SOLVING - STEP 2: Does the patient require extra time to make decisions or solve problems, OR does s/he have slight dif ficulty reading, initiating, or self-correcting in unfamiliar situations? No. PROBLEM SOLVING - SCORE: 7-IND MEMORY: MEMORY - STEP 1: Does the patient need help to remember frequently encountered people, daily routines, and executing r equests? No. MEMORY - STEP 2: Does the patient have slight difficulty recognizing frequently encountered people, daily routines, or executing requests without the need for repetition or using self-initiated or environmental cues to remember? No. MEMORY - SCORE: 7-IND
[2018-07-25] MEDS: HYDROCODONE/APAP 7.5/325 MG TAB PO PRN ×2 (06:22→22:57)
[2018-07-25] MEDS: ALBUTEROL 2.5 MG/3 ML NEB SOL NEB SCH ×2 (07:36→20:14)
[2018-07-25] MEDS: Anoro Ellipta 1 PUFF IH SCH (08:10)
[2018-07-25] MEDS: [UNRECOGNIZED DRUG - REMARK] NAS SCH (08:11)
[2018-07-25] MEDS: GABAPENTIN 300 MG CAP PO SCH ×2 (08:11→20:04)
[2018-07-25] MEDS: ASPIRIN EC 81 MG TAB PO SCH (08:12)
[2018-07-25] MEDS: FERROUS SULFATE 325 MG TAB PO SCH (08:12)
[2018-07-25] MEDS: MAGNESIUM OXIDE 400 MG TAB PO SCH (08:12)
[2018-07-25] MEDS: FE SULF/FA/VIT B COMP & C TAB PO SCH (08:12)
[2018-07-25] MEDS: FUROSEMIDE 20 MG TABLET PO SCH (08:12)
[2018-07-25] MEDS: PANTOPRAZOLE 40MG TABLET PO SCH (08:13)
[2018-07-25] MEDS: METOPROLOL XL 50 MG TAB PO SCH (08:13)
[2018-07-25] MEDS: LOSARTAN POTASSIUM 50 MG TABLET PO SCH (08:13)
[2018-07-25] MEDS: ENOXAPARIN 40 MG/0.4 ML SQ SCH (08:14)
[2018-07-25] MEDS: PROMOD 30 ML DOSE PO SCH ×2 (08:14→20:05)
[2018-07-25] MEDS: LIDOCAINE 5% PATCH TOP SCH (08:14)
--- NOTE | 2018-07-25 16:05 | FAST ---
ENCOUNTER DATE AND TIME: 07/25/2018 08:00 (CDT) NAME MARS AUGUSTIN DATE OF : 1930 DATE OF ADMISSION: 07/14/2018 17:52 (CDT) PHONE: AGE: 88 N# [id number] GENDER: Female ENCOUNTER PHYSICIAN: Dr. Anthony Ybarra M.D. ADMISSION DIAGNOSIS: - Orthopaedic Disorders 08 - Other Orthopaedic (08.9) Right Patella Fracture. Right Shoulder Avulsion Fracture. Left 1st Proximal Phalanx Fracture. EATING: Activity did not occur on this shift EATING - SCORE: 0-UNK GROOMING: Activity did not occur on this shift GROOMING - SCORE: 0-UNK BATHING: Activity did not occur on this shift BATHING - SCORE: 0-UNK DRESSING - UPPER BODY: Activity did not occur on this shift Patient is not dressing in public clothing ARTICLES SCORE Total number of steps: 0 DRESSING - UPPER BODY - SCORE: 0-UNK DRESSING - LOWER BODY: Activity did not occur on this shift Patient is not dressing in public clothing ARTICLES SCORE Total number of steps: 0 DRESSING - LOWER BODY - SCORE: 0-UNK TOILETING: Activity did not occur on this shift TOILETING - SCORE: 0-UNK BLADDER MANAGEMENT: Activity did not occur on this shift BLADDER MANAGEMENT - SCORE: 7-IND BOWEL MANAGEMENT: Activity did not occur on this shift BOWEL MANAGEMENT - SCORE: 7-IND TRANSFERS: BED, CHAIR, WHEELCHAIR: TRANSFERS: BED, CHAIR, WHEELCHAIR - STEP 1: Does the patient require assistance with bed, chair, or wheelchair transfers? Yes. TRANSFERS: BED, CHAIR, WHEELCHAIR - STEP 2: Does the patient require the assistance of a helper? Yes. TRANSFERS: BED, CHAIR, WHEELCHAIR - STEP 3: How much assistance does the patient require from the helper? Lifting of the patient TRANSFERS: BED, CHAIR, WHEELCHAIR - STEP 4: Does the helper lift the patient ONLY up? ONLY down? Up AND Down? ONLY up. TRANSFERS: BED, CHAIR, WHEELCHAIR - SCORE: 3-MOD TRANSFERS: TOILET: Activity did not occur on this shift TRANSFERS: TOILET - SCORE: 0-UNK TRANSFERS: SHOWER: Activity did not occur on this shift TRANSFERS: SHOWER - SCORE: 0-UNK TRANSFERS: TUB: Activity did not occur on this shift TRANSFERS: TUB - SCORE: 0-UNK LOCOMOTION: WALK: LOCOMOTION: WALK - STEP 1: Does the patient need help to walk 150 feet? Yes. LOCOMOTION: WALK - STEP 2: How much assistance does the patient require to walk a minimum of 150 feet? Only incidental help such as contact guarding or steadying LOCOMOTION: WALK - SCORE: 4-MIN LOCOMOTION: WHEELCHAIR: LOCOMOTION: WHEELCHAIR - STEP 1: Does the patient need help to go 150 feet in a wheelchair? Yes. LOCOMOTION: WHEELCHAIR - STEP 2: How much assistance does the patient need from the helper? Only incidental help such as around corner s or over thresholds LOCOMOTION: WHEELCHAIR - SCORE: 4-MIN LOCOMOTION: STAIRS: Activity did not occur on this shift LOCOMOTION: STAIRS - SCORE: 0-UNK COMPREHENSION: COMPREHENSION - SCORE: 0-UNK EXPRESSION EXPRESSION - SCORE: 0-UNK SOCIAL INTERACTION: SOCIAL INTERACTION - SCORE: 0-UNK PROBLEM SOLVING: PROBLEM SOLVING - SCORE: 0-UNK MEMORY: MEMORY - SCORE: 0-UNK SIGNATURE PANEL: The following modified sections: Transfers: Bed, Chair, Wheelchair - Score, Transfers: Toilet - Score , Locomotion: Walk - Score, Locomotion: Wheelchair - Score, Locomotion: Stairs - Score were [wilman hardwick] signed by Karey Sosa PTA on Sat Jul 25 2018 16:04:48 GMT-0500 (Central Daylight Time)
[2018-07-25] MEDS: MAGNESIUM HYDROXIDE 8% 30 ML PO PRN (20:05)
[2018-07-25] MEDS: DOCUSATE NA/SENNA CONC 1 TAB PO SCH (20:05)
[2018-07-25] MEDS: DIPHENHYDRAMINE 25 MG TAB/CAP PO PRN (22:58)
[2018-07-26] MEDS: ENOXAPARIN 40 MG/0.4 ML SQ SCH (06:56)
[2018-07-26] MEDS: LIDOCAINE 5% PATCH TOP SCH (06:56)
[2018-07-26] MEDS: [UNRECOGNIZED DRUG - REMARK] NAS SCH (08:00)
[2018-07-26] MEDS: GABAPENTIN 300 MG CAP PO SCH ×2 (08:30→20:45)
[2018-07-26] MEDS: MAGNESIUM OXIDE 400 MG TAB PO SCH (08:30)
[2018-07-26] MEDS: LOSARTAN POTASSIUM 50 MG TABLET PO SCH (08:31)
[2018-07-26] MEDS: METOPROLOL XL 50 MG TAB PO SCH (08:32)
[2018-07-26] MEDS: FUROSEMIDE 20 MG TABLET PO SCH (08:32)
[2018-07-26] MEDS: FERROUS SULFATE 325 MG TAB PO SCH (08:33)
[2018-07-26] MEDS: PANTOPRAZOLE 40MG TABLET PO SCH (08:33)
[2018-07-26] MEDS: ASPIRIN EC 81 MG TAB PO SCH (08:33)
[2018-07-26] MEDS: HYDROCODONE/APAP 7.5/325 MG TAB PO PRN ×2 (08:33→22:03)
[2018-07-26] MEDS: PROMOD 30 ML DOSE PO SCH ×2 (08:34→20:45)
[2018-07-26] MEDS: ALBUTEROL 2.5 MG/3 ML NEB SOL NEB SCH ×2 (10:08→20:02)
[2018-07-26] MEDS: Anoro Ellipta 1 PUFF IH SCH (10:24)
[2018-07-26] MEDS: FE SULF/FA/VIT B COMP & C TAB PO SCH (10:26)
[2018-07-26] MEDS: MAGNESIUM HYDROXIDE 8% 30 ML PO PRN (20:44)
[2018-07-26] MEDS: DOCUSATE NA/SENNA CONC 1 TAB PO SCH (20:44)
[2018-07-26] MEDS: DIPHENHYDRAMINE 25 MG TAB/CAP PO PRN (22:03)
--- NOTE | 2018-07-27 02:23 | FAST ---
SHIFT START DATE/TIME: 07/26/2018 19:00 (CDT) SHIFT END DATE/TIME: 07/27/2018 07:00 (CDT) NAME MARS AUGUSTIN DATE OF : 1930 DATE OF ADMISSION: 07/14/2018 17:52 (CDT) PHONE: AGE: 88 [facility]# [id number] GENDER: Female ENCOUNTER PHYSICIAN: Dr. Anthony Ybarra M.D. ADMISSION DIAGNOSIS: - Orthopaedic Disorders 08 - Other Orthopaedic (08.9) Right Patella Fracture. Right Shoulder Avulsion Fracture. Left 1st Proximal Phalanx Fracture. EATING: Activity did not occur on this shift EATING - SCORE: 0-UNK GROOMING: Activity did not occur on this shift GROOMING - SCORE: 0-UNK BATHING: Activity did not occur on this shift BATHING - SCORE: 0-UNK DRESSING - UPPER BODY: Patient is not dressing in public clothing ARTICLES SCORE Total number of steps: 0 DRESSING - UPPER BODY - SCORE: 0-UNK DRESSING - LOWER BODY: Patient is not dressing in public clothing ARTICLES SCORE Total number of steps: 0 DRESSING - LOWER BODY - SCORE: 0-UNK TOILETING: TOILETING - STEP 1: Does the patient require assistance with toileting? Yes. TOILETING - STEP 2: Does the patient require the assistance of a helper? Yes. TOILETING - STEP 3: How much assistance does the patient require from the helper? Hands-on assistance from the helper TOILETING - STEP 4: Of the 3 tasks: 1) Adjusting clothing prior to use, 2) Cleansing of perineal area, 3) Adjusting clot neda after use; How many tasks does the patient perform WITHOUT assistance of the helper? No tasks; oswaldo anderson performs all three tasks TOILETING - SCORE: 1-DEP BLADDER MANAGEMENT: BLADDER MANAGEMENT - STEP 1: Does the patient control the bladder completely and intentionally without equipment or devices or med ications, and is always continent? No. BLADDER MANAGEMENT - STEP 2: Does the patient require the assistance of a helper? Yes. BLADDER MANAGEMENT - STEP 3: How much assistance does the patient require from the helper? Only set-up of equipment - such as plac ing it within reach of the patient or emptying a device - to maintain either satisfactory voiding pat tern or managing an external device, such as an absorbent pad, ileal device, or catheter BLADDER MANAGEMENT - SCORE: 5-SUP BOWEL MANAGEMENT: Activity did not occur on this shift BOWEL MANAGEMENT - SCORE: 7-IND TRANSFERS: BED, CHAIR, WHEELCHAIR: TRANSFERS: BED, CHAIR, WHEELCHAIR - STEP 1: Does the patient require assistance with bed, chair, or wheelchair transfers? Yes. TRANSFERS: BED, CHAIR, WHEELCHAIR - STEP 2: Does the patient require the assistance of a helper? Yes. TRANSFERS: BED, CHAIR, WHEELCHAIR - STEP 3: How much assistance does the patient require from the helper? Lifting of the patient TRANSFERS: BED, CHAIR, WHEELCHAIR - STEP 4: Does the helper lift the patient ONLY up? ONLY down? Up AND Down? Up AND Down. TRANSFERS: BED, CHAIR, WHEELCHAIR - SCORE: 2-MAX TRANSFERS: TOILET: TRANSFERS: TOILET - STEP 1: Does the patient require assistance with toilet transfers? Yes. TRANSFERS: TOILET - STEP 2: Does the patient require the assistance of a helper? Yes. TRANSFERS: TOILET - STEP 3: How much assistance does the patient require from the helper? Patient performs half or more of the tr ansferring tasks TRANSFERS: TOILET - STEP 4: Does the patient need only incidental help such as contact guard or steadying during toilet transfer? No. Patient needs more than incidental help TRANSFERS: TOILET - SCORE: 3-MOD TRANSFERS: SHOWER: Activity did not occur on this shift TRANSFERS: SHOWER - SCORE: 0-UNK TRANSFERS: TUB: Activity did not occur on this shift TRANSFERS: TUB - SCORE: 0-UNK LOCOMOTION: WALK: Activity did not occur on this shift LOCOMOTION: WALK - SCORE: 0-UNK LOCOMOTION: WHEELCHAIR: Activity did not occur on this shift LOCOMOTION: WHEELCHAIR - SCORE: 0-UNK COMPREHENSION: COMPREHENSION: TYPE: Both COMPREHENSION - STEP 1: Does the patient require help to understand complex and abstract ideas (such as current events, finan ny, discharge planning, medical issues, relationships, etc)? No. COMPREHENSION - STEP 2: Does the patient need extra time, require an assistive device (such as glasses, hearing aids, or an a ugmentative communication system), OR does s/he have mild difficulty expressing complex and abstract ideas (including mild dysarthria or mild word-finding problems)? Yes. COMPREHENSION - SCORE: 6-LETI EXPRESSION EXPRESSION: TYPE: Both EXPRESSION - STEP 1: Does the patient require help expressing complex and abstract ideas (such as current events, finances , discharge planning, medical issues, relationships, etc)? No. EXPRESSION - STEP 2: Does the patient need extra time, require an assistive device (such as augmentive communication syste m or a communication board), OR does s/he have mild difficulty expressing complex and abstract ideas (including mild dysarthria or mild word-find problems)? No. EXPRESSION - SCORE: 7-IND SOCIAL INTERACTION: SOCIAL INTERACTION - STEP 1: Does the patient require a helper to interact with others in social and therapeutic situations? No. SOCIAL INTERACTION - STEP 2: Does the patient need extra time in social situations, OR does s/he interact with staff, other patien ts, and family members ONLY in structured environments, OR does s/he require medication for social in teraction? Yes, patient needs extra time SOCIAL INTERACTION - SCORE: 6-LETI PROBLEM SOLVING: PROBLEM SOLVING - STEP 1: Does the patient need help to solve complex problems such as managing a checking account or confronti ng interpersonal problems? No. PROBLEM SOLVING - STEP 2: Does the patient require extra time to make decisions or solve problems, OR does s/he have slight dif ficulty reading, initiating, or self-correcting in unfamiliar situations? Yes, patient needs extra ti me. PROBLEM SOLVING - SCORE: 6-LETI MEMORY: MEMORY - STEP 1: Does the patient need help to remember frequently encountered people, daily routines, and executing r equests? No. MEMORY - STEP 2: Does the patient have slight difficulty recognizing frequently encountered people, daily routines, or executing requests without the need for repetition or using self-initiated or environmental cues to remember? Yes. MEMORY - SCORE: 6-LETI SIGNATURE PANEL: The following modified sections: Eating - Score, Grooming - Score, Dressing - Upper Body - Score, Tray ssing - Lower Body - Score, Toileting - Score, Bladder Management - Score, Bowel Management - Score, Transfers: Bed, Chair, Wheelchair - Score, Transfers: Toilet - Score, Transfers: Shower - Score, García sfers: Tub - Score, Locomotion: Walk - Score, Locomotion: Wheelchair - Score, Comprehension - Score, Expression - Score, Social Interaction - Score, Problem Solving - Score, Memory - Score were [electro nically] signed by Julita Jacobs CNA on FriJul 27 2018 02:21:41 GMT-0500 (Central Daylight Time)
[2018-07-27] MEDS: HYDROCODONE/APAP 7.5/325 MG TAB PO PRN ×2 (06:55→16:25)
[2018-07-27] MEDS: PANTOPRAZOLE 40MG TABLET PO SCH (06:55)
[2018-07-27] MEDS: [UNRECOGNIZED DRUG - REMARK] NAS SCH (07:14)
[2018-07-27] MEDS: ENOXAPARIN 40 MG/0.4 ML SQ SCH (07:14)
[2018-07-27] MEDS: Anoro Ellipta 1 PUFF IH SCH (07:14)
[2018-07-27] MEDS: ALBUTEROL 2.5 MG/3 ML NEB SOL NEB SCH ×2 (07:34→19:28)
[2018-07-27] MEDS: FE SULF/FA/VIT B COMP & C TAB PO SCH (08:09)
[2018-07-27] MEDS: FUROSEMIDE 20 MG TABLET PO SCH (08:09)
[2018-07-27] MEDS: LOSARTAN POTASSIUM 50 MG TABLET PO SCH (08:09)
[2018-07-27] MEDS: LIDOCAINE 5% PATCH TOP SCH (08:09)
[2018-07-27] MEDS: ASPIRIN EC 81 MG TAB PO SCH (08:12)
[2018-07-27] MEDS: MAGNESIUM OXIDE 400 MG TAB PO SCH (08:12)
[2018-07-27] MEDS: METOPROLOL XL 50 MG TAB PO SCH (08:12)
[2018-07-27] MEDS: GABAPENTIN 300 MG CAP PO SCH ×2 (08:12→20:20)
[2018-07-27] MEDS: FERROUS SULFATE 325 MG TAB PO SCH (08:12)
[2018-07-27] MEDS: PROMOD 30 ML DOSE PO SCH ×2 (08:13→20:20)
--- NOTE | 2018-07-27 11:24 | FAST ---
SHIFT START DATE/TIME: 07/27/2018 07:00 (CDT) SHIFT END DATE/TIME: 07/27/2018 19:00 (CDT) NAME MARS AUGUSTIN DATE OF : 1930 DATE OF ADMISSION: 07/14/2018 17:52 (CDT) PHONE: AGE: 88 [facility]# [id number] GENDER: Female ENCOUNTER PHYSICIAN: Dr. Antohny Ybarra M.D. ADMISSION DIAGNOSIS: - Orthopaedic Disorders 08 - Other Orthopaedic (08.9) Right Patella Fracture. Right Shoulder Avulsion Fracture. Left 1st Proximal Phalanx Fracture. EATING: EATING - STEP 1: Does the patient require assistance when eating? Yes. EATING - STEP 2: Does the patient require the assistance of a helper? No, patient only requires an assistive device, O R s/he takes more than reasonable time to eat, OR there is a safety concern, OR s/he requires modifie d food consistency EATING - SCORE: 6-LETI GROOMING: Comb/brush hair Oral care Wash, rinse, and dry face Wash, rinse, and dry hands GROOMING - STEP 1: Does the patient require assistance when grooming? Yes. GROOMING - STEP 2: Does the patient require the assistance of a helper? No. The patient only requires an assistive devic e, OR takes more than reasonable time to groom, OR there is a concern for safety as the patient groom s GROOMING - SCORE: 6-LETI BATHING: Activity did not occur on this shift BATHING - SCORE: 0-UNK DRESSING - UPPER BODY: Activity did not occur on this shift ARTICLES SCORE Total number of steps: 0 DRESSING - UPPER BODY - SCORE: 0-UNK DRESSING - LOWER BODY: Activity did not occur on this shift ARTICLES SCORE Total number of steps: 0 DRESSING - LOWER BODY - SCORE: 0-UNK TOILETING: TOILETING - STEP 1: Does the patient require assistance with toileting? Yes. TOILETING - STEP 2: Does the patient require the assistance of a helper? Yes. TOILETING - STEP 3: How much assistance does the patient require from the helper? Hands-on assistance from the helper TOILETING - STEP 4: Of the 3 tasks: 1) Adjusting clothing prior to use, 2) Cleansing of perineal area, 3) Adjusting clot neda after use; How many tasks does the patient perform WITHOUT assistance of the helper? Two tasks TOILETING - SCORE: 3-MOD BLADDER MANAGEMENT: BLADDER MANAGEMENT - STEP 1: Does the patient control the bladder completely and intentionally without equipment or devices or med ications, and is always continent? No. BLADDER MANAGEMENT - STEP 2: Does the patient require the assistance of a helper? No, patient requires and independently uses an a ssistive device, such as a urinal, bedpan, bedside commode, catheter, absorbent pad, or collecting de vice BLADDER MANAGEMENT - SCORE: 6-LETI BOWEL MANAGEMENT: Activity did not occur on this shift BOWEL MANAGEMENT - SCORE: 7-IND TRANSFERS: BED, CHAIR, WHEELCHAIR: TRANSFERS: BED, CHAIR, WHEELCHAIR - STEP 1: Does the patient require assistance with bed, chair, or wheelchair transfers? Yes. TRANSFERS: BED, CHAIR, WHEELCHAIR - STEP 2: Does the patient require the assistance of a helper? Yes. TRANSFERS: BED, CHAIR, WHEELCHAIR - STEP 3: How much assistance does the patient require from the helper? Lifting of the legs TRANSFERS: BED, CHAIR, WHEELCHAIR - STEP 4: How many legs does the patient require the helper to lift? one leg TRANSFERS: BED, CHAIR, WHEELCHAIR - SCORE: 4-MIN TRANSFERS: TOILET: TRANSFERS: TOILET - STEP 1: Does the patient require assistance with toilet transfers? Yes. TRANSFERS: TOILET - STEP 2: Does the patient require the assistance of a helper? Yes. TRANSFERS: TOILET - STEP 3: How much assistance does the patient require from the helper? Patient performs half or more of the tr ansferring tasks TRANSFERS: TOILET - STEP 4: Does the patient need only incidental help such as contact guard or steadying during toilet transfer? Yes. TRANSFERS: TOILET - SCORE: 4-MIN TRANSFERS: SHOWER: Activity did not occur on this shift TRANSFERS: SHOWER - SCORE: 0-UNK TRANSFERS: TUB: Activity did not occur on this shift TRANSFERS: TUB - SCORE: 0-UNK LOCOMOTION: WALK: Activity did not occur on this shift LOCOMOTION: WALK - SCORE: 0-UNK LOCOMOTION: WHEELCHAIR: Activity did not occur on this shift LOCOMOTION: WHEELCHAIR - SCORE: 0-UNK COMPREHENSION: COMPREHENSION: TYPE: Both COMPREHENSION - STEP 1: Does the patient require help to understand complex and abstract ideas (such as current events, finan ny, discharge planning, medical issues, relationships, etc)? No. COMPREHENSION - STEP 2: Does the patient need extra time, require an assistive device (such as glasses, hearing aids, or an a ugmentative communication system), OR does s/he have mild difficulty expressing complex and abstract ideas (including mild dysarthria or mild word-finding problems)? Yes. COMPREHENSION - SCORE: 6-LETI EXPRESSION EXPRESSION: TYPE: Both EXPRESSION - STEP 1: Does the patient require help expressing complex and abstract ideas (such as current events, finances , discharge planning, medical issues, relationships, etc)? No. EXPRESSION - STEP 2: Does the patient need extra time, require an assistive device (such as augmentive communication syste m or a communication board), OR does s/he have mild difficulty expressing complex and abstract ideas (including mild dysarthria or mild word-find problems)? Yes. EXPRESSION - SCORE: 6-LETI SOCIAL INTERACTION: SOCIAL INTERACTION - STEP 1: Does the patient require a helper to interact with others in social and therapeutic situations? No. SOCIAL INTERACTION - STEP 2: Does the patient need extra time in social situations, OR does s/he interact with staff, other patien ts, and family members ONLY in structured environments, OR does s/he require medication for social in teraction? Yes, patient needs extra time SOCIAL INTERACTION - SCORE: 6-LETI PROBLEM SOLVING: PROBLEM SOLVING - STEP 1: Does the patient need help to solve complex problems such as managing a checking account or confronti ng interpersonal problems? No. PROBLEM SOLVING - STEP 2: Does the patient require extra time to make decisions or solve problems, OR does s/he have slight dif ficulty reading, initiating, or self-correcting in unfamiliar situations? Yes, patient needs extra ti me. PROBLEM SOLVING - SCORE: 6-LETI MEMORY: MEMORY - STEP 1: Does the patient need help to remember frequently encountered people, daily routines, and executing r equests? No. MEMORY - STEP 2: Does the patient have slight difficulty recognizing frequently encountered people, daily routines, or executing requests without the need for repetition or using self-initiated or environmental cues to remember? Yes. MEMORY - SCORE: 6-LETI SIGNATURE PANEL: The following modified sections: Eating - Score, Grooming - Score, Bathing - Score, Dressing - Upper Body - Score, Dressing - Lower Body - Score, Toileting - Score, Bladder Management - Score, Bowel Man agement - Score, Transfers: Bed, Chair, Wheelchair - Score, Transfers: Toilet - Score, Transfers: Nette wer - Score, Transfers: Tub - Score, Locomotion: Walk - Score, Locomotion: Wheelchair - Score, Compre hension - Score, Expression - Score, Social Interaction - Score, Problem Solving - Score, Memory - Sc ore were [electronically] signed by Lazarus Erazo on FriJul 27 2018 11:07:09 GMT-0500 (Central Daylight Time)
--- NOTE | 2018-07-27 11:38 | PN ---
Date of Progress Note: 07/27/2018 Subjective: The patient was seen this morning for followup. She denied any specific complaints. Pa in is under much better control. She takes her pain medication as needed and she is scheduled for yennifer elizabeth to go to [facility] tomorrow. Objective: Vital Signs: Reviewed. HEENT: Unremarkable. Lungs: Clear to auscultation. Heart: Sounds normal. Abdomen: Soft. Bowel sounds normal. No guarding, rigidity, tenderness, distention. Extremities: No leg edema. Impression: 1.Right patella fracture. 2.Right shoulder fracture. 3.Hypertension. 4.Chronic obstructive pulmonary disease. Plan: We will continue current medications. Continue physical therapy per guidance of Dr. Ybarra. I will see her tomorrow morning for followup and plan is to discharge her to go to [facility]. Her plan is to stay in [facility] for short-term stay until she is more independent as she lives at home by herself and her plan is eventually to return back home. GIA/MODL Voice ID: [id number] Report ID: [id number]
--- NOTE | 2018-07-27 15:33 | FAST ---
ENCOUNTER DATE AND TIME: 07/27/2018 08:00 (CDT) NAME MARS AUGUSTIN DATE OF : 1930 DATE OF ADMISSION: 07/14/2018 17:52 (CDT) PHONE: AGE: 88 N# [id number] GENDER: Female ENCOUNTER PHYSICIAN: Dr. Anthony Ybarra M.D. ADMISSION DIAGNOSIS: - Orthopaedic Disorders 08 - Other Orthopaedic (08.9) Right Patella Fracture. Right Shoulder Avulsion Fracture. Left 1st Proximal Phalanx Fracture. EATING: Activity did not occur on this shift EATING - SCORE: 0-UNK GROOMING: Activity did not occur on this shift GROOMING - SCORE: 0-UNK BATHING: Activity did not occur on this shift BATHING - SCORE: 0-UNK DRESSING - UPPER BODY: Activity did not occur on this shift Patient is not dressing in public clothing ARTICLES SCORE Total number of steps: 0 DRESSING - UPPER BODY - SCORE: 0-UNK DRESSING - LOWER BODY: Activity did not occur on this shift Patient is not dressing in public clothing ARTICLES SCORE Total number of steps: 0 DRESSING - LOWER BODY - SCORE: 0-UNK TOILETING: Activity did not occur on this shift TOILETING - SCORE: 0-UNK BLADDER MANAGEMENT: Activity did not occur on this shift BLADDER MANAGEMENT - SCORE: 7-IND BOWEL MANAGEMENT: Activity did not occur on this shift BOWEL MANAGEMENT - SCORE: 7-IND TRANSFERS: BED, CHAIR, WHEELCHAIR: TRANSFERS: BED, CHAIR, WHEELCHAIR - STEP 1: Does the patient require assistance with bed, chair, or wheelchair transfers? Yes. TRANSFERS: BED, CHAIR, WHEELCHAIR - STEP 2: Does the patient require the assistance of a helper? Yes. TRANSFERS: BED, CHAIR, WHEELCHAIR - STEP 3: How much assistance does the patient require from the helper? Lifting of the patient TRANSFERS: BED, CHAIR, WHEELCHAIR - STEP 4: Does the helper lift the patient ONLY up? ONLY down? Up AND Down? ONLY up. TRANSFERS: BED, CHAIR, WHEELCHAIR - SCORE: 3-MOD TRANSFERS: TOILET: Activity did not occur on this shift TRANSFERS: TOILET - SCORE: 0-UNK TRANSFERS: SHOWER: Activity did not occur on this shift TRANSFERS: SHOWER - SCORE: 0-UNK TRANSFERS: TUB: Activity did not occur on this shift TRANSFERS: TUB - SCORE: 0-UNK LOCOMOTION: WALK: LOCOMOTION: WALK - STEP 1: Does the patient need help to walk 150 feet? Yes. LOCOMOTION: WALK - STEP 2: How much assistance does the patient require to walk a minimum of 150 feet? Patient walks less than 1 50 feet - but more than 50 feet - with the assistance of only one helper LOCOMOTION: WALK - SCORE: 2-MAX LOCOMOTION: WHEELCHAIR: LOCOMOTION: WHEELCHAIR - STEP 1: Does the patient need help to go 150 feet in a wheelchair? Yes. LOCOMOTION: WHEELCHAIR - STEP 2: How much assistance does the patient need from the helper? Only supervision, cuing, or coaxing LOCOMOTION: WHEELCHAIR - SCORE: 5-SUP LOCOMOTION: STAIRS: Activity did not occur on this shift LOCOMOTION: STAIRS - SCORE: 0-UNK COMPREHENSION: COMPREHENSION - SCORE: 0-UNK EXPRESSION EXPRESSION - SCORE: 0-UNK SOCIAL INTERACTION: SOCIAL INTERACTION - SCORE: 0-UNK PROBLEM SOLVING: PROBLEM SOLVING - SCORE: 0-UNK MEMORY: MEMORY - SCORE: 0-UNK SIGNATURE PANEL: The following modified sections: Transfers: Bed, Chair, Wheelchair - Score, Transfers: Toilet - Score , Locomotion: Walk - Score, Locomotion: Wheelchair - Score, Locomotion: Stairs - Score were [electron ically] signed by Scott Moore PT on FriJul 27 2018 15:32:33 GMT-0500 (Central Daylight Time)
[2018-07-27] MEDS: MAGNESIUM HYDROXIDE 8% 30 ML PO PRN (20:20)
[2018-07-27] MEDS: DOCUSATE NA/SENNA CONC 1 TAB PO SCH (20:20)
[2018-07-27] MEDS: DIPHENHYDRAMINE 25 MG TAB/CAP PO PRN (20:20)
--- NOTE | 2018-07-28 03:57 | FAST ---
SHIFT START DATE/TIME: 07/27/2018 19:00 (CDT) SHIFT END DATE/TIME: 07/28/2018 07:00 (CDT) NAME MARS AUGUSTIN DATE OF : 1930 DATE OF ADMISSION: 07/14/2018 17:52 (CDT) PHONE: AGE: 88 [facility]# [id number] GENDER: Female ENCOUNTER PHYSICIAN: Dr. Anthony Ybarra M.D. ADMISSION DIAGNOSIS: - Orthopaedic Disorders 08 - Other Orthopaedic (08.9) Right Patella Fracture. Right Shoulder Avulsion Fracture. Left 1st Proximal Phalanx Fracture. EATING: EATING - STEP 1: Does the patient require assistance when eating? Yes. EATING - STEP 2: Does the patient require the assistance of a helper? Yes. EATING - STEP 3: Does the patient perform half or more of the eating tasks? Yes. EATING - STEP 4: Does the patient need only supervision, cuing, coaxing OR help to apply an orthosis OR help to cut fo od, open containers, pour liquids, or butter bread? Yes. EATING - SCORE: 5-SUP GROOMING: Activity did not occur on this shift GROOMING - SCORE: 0-UNK BATHING: Activity did not occur on this shift BATHING - SCORE: 0-UNK DRESSING - UPPER BODY: Patient is not dressing in public clothing ARTICLES SCORE Total number of steps: 0 DRESSING - UPPER BODY - SCORE: 0-UNK DRESSING - LOWER BODY: Patient is not dressing in public clothing ARTICLES SCORE Total number of steps: 0 DRESSING - LOWER BODY - SCORE: 0-UNK TOILETING: TOILETING - STEP 1: Does the patient require assistance with toileting? Yes. TOILETING - STEP 2: Does the patient require the assistance of a helper? Yes. TOILETING - STEP 3: How much assistance does the patient require from the helper? Hands-on assistance from the helper TOILETING - STEP 4: Of the 3 tasks: 1) Adjusting clothing prior to use, 2) Cleansing of perineal area, 3) Adjusting clot neda after use; How many tasks does the patient perform WITHOUT assistance of the helper? No tasks; h elper performs all three tasks TOILETING - SCORE: 1-DEP BLADDER MANAGEMENT: Patient requires assistance from two helpers when using bedpan. BLADDER MANAGEMENT - SCORE: 1-DEP BLADDER MANAGEMENT - FREQUENCY OF ACCIDENTS: BLADDER MANAGEMENT(FA) - STEP 1: How many accidents has the patient had during the current shift? 0 BOWEL MANAGEMENT: Patient requires assistance from two helpers when using bedpan for BM. BOWEL MANAGEMENT - SCORE: 1-DEP BOWEL MANAGEMENT - FREQUENCY OF ACCIDENTS: BOWEL MANAGEMENT(FA) - STEP 1: How many accidents has the patient had during the current shift? 0 TRANSFERS: BED, CHAIR, WHEELCHAIR: Patient requires more than one helper and/or the use of a mechanical lift is utilized TRANSFERS: BED, CHAIR, WHEELCHAIR - SCORE: 1-DEP TRANSFERS: TOILET: Patient requires more than one helper and/or the use of a mechanical lift is utilized TRANSFERS: TOILET - SCORE: 1-DEP TRANSFERS: SHOWER: Activity did not occur on this shift TRANSFERS: SHOWER - SCORE: 0-UNK TRANSFERS: TUB: Activity did not occur on this shift TRANSFERS: TUB - SCORE: 0-UNK LOCOMOTION: WALK: Activity did not occur on this shift LOCOMOTION: WALK - SCORE: 0-UNK LOCOMOTION: WHEELCHAIR: Activity did not occur on this shift LOCOMOTION: WHEELCHAIR - SCORE: 0-UNK COMPREHENSION: COMPREHENSION: TYPE: Both COMPREHENSION - STEP 1: Does the patient require help to understand complex and abstract ideas (such as current events, finan ny, discharge planning, medical issues, relationships, etc)? No. COMPREHENSION - STEP 2: Does the patient need extra time, require an assistive device (such as glasses, hearing aids, or an a ugmentative communication system), OR does s/he have mild difficulty expressing complex and abstract ideas (including mild dysarthria or mild word-finding problems)? Yes. COMPREHENSION - SCORE: 6-LETI EXPRESSION EXPRESSION: TYPE: Both EXPRESSION - STEP 1: Does the patient require help expressing complex and abstract ideas (such as current events, finances , discharge planning, medical issues, relationships, etc)? No. EXPRESSION - STEP 2: Does the patient need extra time, require an assistive device (such as augmentive communication syste m or a communication board), OR does s/he have mild difficulty expressing complex and abstract ideas (including mild dysarthria or mild word-find problems)? Yes. EXPRESSION - SCORE: 6-LETI SOCIAL INTERACTION: SOCIAL INTERACTION - STEP 1: Does the patient require a helper to interact with others in social and therapeutic situations? No. SOCIAL INTERACTION - STEP 2: Does the patient need extra time in social situations, OR does s/he interact with staff, other patien ts, and family members ONLY in structured environments, OR does s/he require medication for social in teraction? Yes, patient needs extra time SOCIAL INTERACTION - SCORE: 6-LETI PROBLEM SOLVING: PROBLEM SOLVING - STEP 1: Does the patient need help to solve complex problems such as managing a checking account or confronti ng interpersonal problems? No. PROBLEM SOLVING - STEP 2: Does the patient require extra time to make decisions or solve problems, OR does s/he have slight dif ficulty reading, initiating, or self-correcting in unfamiliar situations? Yes, patient needs extra ti me. PROBLEM SOLVING - SCORE: 6-LETI MEMORY: MEMORY - STEP 1: Does the patient need help to remember frequently encountered people, daily routines, and executing r equests? No. MEMORY - STEP 2: Does the patient have slight difficulty recognizing frequently encountered people, daily routines, or executing requests without the need for repetition or using self-initiated or environmental cues to remember? Yes. MEMORY - SCORE: 6-LETI SIGNATURE PANEL: The following modified sections: Eating - Score, Grooming - Score, Bathing - Score, Dressing - Upper Body - Score, Dressing - Lower Body - Score, Toileting - Score, Bladder Management - Score, Bowel Man agement - Score, Transfers: Bed, Chair, Wheelchair - Score, Transfers: Toilet - Score, Transfers: Nette wer - Score, Transfers: Tub - Score, Locomotion: Walk - Score, Locomotion: Wheelchair - Score, Compre hension - Score, Expression - Score, Social Interaction - Score, Problem Solving - Score, Memory - Sc ore were [electronically] signed by Nissa Srivastava [email or web address] on FriJul 28 2018 03:56:17 T-0500 ( Central Daylight Time)
[2018-07-28] MEDS: Anoro Ellipta 1 PUFF IH SCH ×2 (07:23→07:59)
[2018-07-28] MEDS: ENOXAPARIN 40 MG/0.4 ML SQ SCH (07:26)
[2018-07-28] MEDS: HYDROCODONE/APAP 7.5/325 MG TAB PO PRN (07:27)
[2018-07-28] MEDS: LIDOCAINE 5% PATCH TOP SCH (07:27)
[2018-07-28] MEDS: FE SULF/FA/VIT B COMP & C TAB PO SCH (07:27)
[2018-07-28] MEDS: GABAPENTIN 300 MG CAP PO SCH (07:28)
[2018-07-28] MEDS: LOSARTAN POTASSIUM 50 MG TABLET PO SCH (07:28)
[2018-07-28] MEDS: MAGNESIUM OXIDE 400 MG TAB PO SCH ×2 (07:28→07:43)
[2018-07-28] MEDS: PANTOPRAZOLE 40MG TABLET PO SCH (07:28)
[2018-07-28] MEDS: METOPROLOL XL 50 MG TAB PO SCH (07:28)
[2018-07-28] MEDS: FUROSEMIDE 20 MG TABLET PO SCH (07:28)
[2018-07-28] MEDS: FERROUS SULFATE 325 MG TAB PO SCH (07:28)
[2018-07-28] MEDS: ASPIRIN EC 81 MG TAB PO SCH (07:28)
[2018-07-28] MEDS: [UNRECOGNIZED DRUG - REMARK] NAS SCH ×3 (07:29→08:00)
[2018-07-28] MEDS: PROMOD 30 ML DOSE PO SCH (07:29)
[2018-07-28] MEDS: ALBUTEROL 2.5 MG/3 ML NEB SOL NEB SCH (08:00)
[2018-07-28 10:15] VITALS: TEMP 96
[2018-07-28 10:16] VITALS: BP 142/61
--- NOTE | 2018-07-28 10:39 | FAST ---
SHIFT START DATE/TIME: 07/28/2018 07:00 (CDT) SHIFT END DATE/TIME: 07/28/2018 19:00 (CDT) NAME MARS AUGUSTIN DATE OF : 1930 DATE OF ADMISSION: 07/14/2018 17:52 (CDT) PHONE: AGE: 88 [facility]# [id number] GENDER: Female ENCOUNTER PHYSICIAN: Dr. Anthony Ybarra M.D. ADMISSION DIAGNOSIS: - Orthopaedic Disorders 08 - Other Orthopaedic (08.9) Right Patella Fracture. Right Shoulder Avulsion Fracture. Left 1st Proximal Phalanx Fracture. EATING: EATING - STEP 1: Does the patient require assistance when eating? Yes. EATING - STEP 2: Does the patient require the assistance of a helper? No, patient only requires an assistive device, O R s/he takes more than reasonable time to eat, OR there is a safety concern, OR s/he requires modifie d food consistency EATING - SCORE: 6-LETI GROOMING: Comb/brush hair Oral care Wash, rinse, and dry face Wash, rinse, and dry hands GROOMING - STEP 1: Does the patient require assistance when grooming? Yes. GROOMING - STEP 2: Does the patient require the assistance of a helper? No. The patient only requires an assistive devic e, OR takes more than reasonable time to groom, OR there is a concern for safety as the patient groom s GROOMING - SCORE: 6-LETI BATHING: Activity did not occur on this shift BATHING - SCORE: 0-UNK DRESSING - UPPER BODY: Sweater (four steps) T-shirt/pullover shirt (four steps) ARTICLES SCORE Total number of steps: 8 DRESSING - UPPER BODY - STEP 1: Does the patient require help when dressing above the waist? Yes. DRESSING - UPPER BODY - STEP 2: Does the patient require the assistance of a helper? Yes. DRESSING - UPPER BODY - STEP 3: Does the helper touch the patient while dressing? Yes. DRESSING - UPPER BODY - STEP 4: How many of the total steps does the patient complete on his/her own? 4 DRESSING - UPPER BODY - SCORE: 3-MOD DRESSING - LOWER BODY: ARTICLES SCORE Total number of steps: 5 DRESSING - LOWER BODY - STEP 1: Does the patient require help when dressing below the waist? Yes. DRESSING - LOWER BODY - STEP 2: Does the patient require the assistance of a helper? Yes. DRESSING - LOWER BODY - STEP 3: Does the helper touch the patient while dressing? Yes. DRESSING - LOWER BODY - STEP 4: How many of the total steps does the patient complete on his/her own? 0 DRESSING - LOWER BODY - STEP 5: Does patient require total assistance for dressing below the waist such as the helper holding clothin g and performing basically all the activities? No. DRESSING - LOWER BODY - SCORE: 2-MAX TOILETING: TOILETING - STEP 1: Does the patient require assistance with toileting? Yes. TOILETING - STEP 2: Does the patient require the assistance of a helper? Yes. TOILETING - STEP 3: How much assistance does the patient require from the helper? Hands-on assistance from the helper TOILETING - STEP 4: Of the 3 tasks: 1) Adjusting clothing prior to use, 2) Cleansing of perineal area, 3) Adjusting clot neda after use; How many tasks does the patient perform WITHOUT assistance of the helper? One task TOILETING - SCORE: 2-MAX BLADDER MANAGEMENT: BLADDER MANAGEMENT - STEP 1: Does the patient control the bladder completely and intentionally without equipment or devices or med ications, and is always continent? No. BLADDER MANAGEMENT - STEP 2: Does the patient require the assistance of a helper? No, patient requires and independently uses an a ssistive device, such as a urinal, bedpan, bedside commode, catheter, absorbent pad, or collecting de vice BLADDER MANAGEMENT - SCORE: 6-LETI BOWEL MANAGEMENT: BOWEL MANAGEMENT - STEP 1: Does the patient control bowels completely and intentionally without equipment devices or medications AND is always continent? No. BOWEL MANAGEMENT - STEP 2: Does the patient require the assistance of a helper? No, patient requires medication for control such as stool softeners, suppositories, laxatives, enemas, or OTC medications BOWEL MANAGEMENT - SCORE: 6-LETI TRANSFERS: BED, CHAIR, WHEELCHAIR: TRANSFERS: BED, CHAIR, WHEELCHAIR - STEP 1: Does the patient require assistance with bed, chair, or wheelchair transfers? Yes. TRANSFERS: BED, CHAIR, WHEELCHAIR - STEP 2: Does the patient require the assistance of a helper? Yes. TRANSFERS: BED, CHAIR, WHEELCHAIR - STEP 3: How much assistance does the patient require from the helper? Lifting of the patient TRANSFERS: BED, CHAIR, WHEELCHAIR - STEP 4: Does the helper lift the patient ONLY up? ONLY down? Up AND Down? ONLY up. TRANSFERS: BED, CHAIR, WHEELCHAIR - SCORE: 3-MOD TRANSFERS: TOILET: TRANSFERS: TOILET - STEP 1: Does the patient require assistance with toilet transfers? Yes. TRANSFERS: TOILET - STEP 2: Does the patient require the assistance of a helper? Yes. TRANSFERS: TOILET - STEP 3: How much assistance does the patient require from the helper? Patient performs half or more of the tr ansferring tasks TRANSFERS: TOILET - STEP 4: Does the patient need only incidental help such as contact guard or steadying during toilet transfer? No. Patient needs more than incidental help TRANSFERS: TOILET - SCORE: 3-MOD TRANSFERS: SHOWER: Activity did not occur on this shift TRANSFERS: SHOWER - SCORE: 0-UNK TRANSFERS: TUB: Activity did not occur on this shift TRANSFERS: TUB - SCORE: 0-UNK LOCOMOTION: WALK: Activity did not occur on this shift LOCOMOTION: WALK - SCORE: 0-UNK LOCOMOTION: WHEELCHAIR: Activity did not occur on this shift LOCOMOTION: WHEELCHAIR - SCORE: 0-UNK COMPREHENSION: COMPREHENSION: TYPE: Both COMPREHENSION - STEP 1: Does the patient require help to understand complex and abstract ideas (such as current events, finan ny, discharge planning, medical issues, relationships, etc)? No. COMPREHENSION - STEP 2: Does the patient need extra time, require an assistive device (such as glasses, hearing aids, or an a ugmentative communication system), OR does s/he have mild difficulty expressing complex and abstract ideas (including mild dysarthria or mild word-finding problems)? Yes. COMPREHENSION - SCORE: 6-LETI EXPRESSION EXPRESSION: TYPE: Both EXPRESSION - STEP 1: Does the patient require help expressing complex and abstract ideas (such as current events, finances , discharge planning, medical issues, relationships, etc)? No. EXPRESSION - STEP 2: Does the patient need extra time, require an assistive device (such as augmentive communication syste m or a communication board), OR does s/he have mild difficulty expressing complex and abstract ideas (including mild dysarthria or mild word-find problems)? Yes. EXPRESSION - SCORE: 6-LETI SOCIAL INTERACTION: SOCIAL INTERACTION - STEP 1: Does the patient require a helper to interact with others in social and therapeutic situations? No. SOCIAL INTERACTION - STEP 2: Does the patient need extra time in social situations, OR does s/he interact with staff, other patien ts, and family members ONLY in structured environments, OR does s/he require medication for social in teraction? No. SOCIAL INTERACTION - SCORE: 7-IND PROBLEM SOLVING: PROBLEM SOLVING - STEP 1: Does the patient need help to solve complex problems such as managing a checking account or confronti ng interpersonal problems? No. PROBLEM SOLVING - STEP 2: Does the patient require extra time to make decisions or solve problems, OR does s/he have slight dif ficulty reading, initiating, or self-correcting in unfamiliar situations? Yes, patient needs extra ti me. PROBLEM SOLVING - SCORE: 6-LETI MEMORY: MEMORY - STEP 1: Does the patient need help to remember frequently encountered people, daily routines, and executing r equests? No. MEMORY - STEP 2: Does the patient have slight difficulty recognizing frequently encountered people, daily routines, or executing requests without the need for repetition or using self-initiated or environmental cues to remember? Yes. MEMORY - SCORE: 6-LETI SIGNATURE PANEL: The following modified sections: Eating - Score, Grooming - Score, Bathing - Score, Dressing - Upper Body - Score, Dressing - Lower Body - Score, Toileting - Score, Bladder Management - Score, Bowel Man agement - Score, Transfers: Bed, Chair, Wheelchair - Score, Transfers: Shower - Score, Transfers: Mykel let - Score, Transfers: Tub - Score, Locomotion: Walk - Score, Locomotion: Wheelchair - Score, Compre hension - Score, Expression - Score, Social Interaction - Score, Problem Solving - Score, Memory - Sc ore were [electronically] signed by Lazarus Erazo on FriJul 28 2018 10:38:31 GMT-0500 (Central Daylight Time)
--- NOTE | 2018-07-28 19:08 | R.PN ---
ENCOUNTER DATE AND TIME: 07/28/2018 19:04 (CDT) NAME MARS AUGUSTIN DATE OF : 1930 DATE OF ADMISSION: 07/14/2018 17:52 (CDT) Right Patella FractureRight Shoulder Avulsion FractureLeft 1st Proximal Phalanx FractureCHIEF COMPLAI NT: Right patella fracture, right shoulder avulsion fracture SUBJECTIVE: Pt denied any Shortness of Breath. Pt denied any depression. Ambulated 55' with contact guard assistance using a left hemiwalker. Propelled wheelchair 250' with s tandby assistance. VITAL SIGNS Temperature: 98.3 F SBP/DBP: 142/61 Pulse: 75 Resp: 16 MEDICATION ALLERGIES: Ibuprofen Codeine Penicillin ENVIRONMENTAL ALLERGIES: None Known - Substance Allergies None Known - Other Allergies None Known NURSING: - Shower allowing shower - Skin care per protocol PRECAUTIONS: - Weight Bearing Precaution NWB right UE WBAT right LE ACTIVITIES OOB only with supervision THERAPIES: - Occupational Therapy Evaluate and Treat. - Physical Therapy Evaluate and Treat. PHYSICAL EXAM - Gen Alert and awake Lying in bed No apparent distress Oriented to: person, time, and place - Skin No skin breakdown. Normacephalic - Eyes No abnormalities - ENMT No abnormalities - Neck No abnormalities - CVS RRR - Chest Clear - Abd Soft - GI nondistended Deferred - No abnormalities - Ext No significant edema - MSK 4+/5 weakness in right lower extremity - Neuro 4/5 strength right upper and lower extremities. - Psych No abnormalities ASSESSMENT: Pt. is a 88 yo Right-handed white female.On 07/10/2018 she was admitted to [facility] [place], [place] with diagnosis Right Patella Fracture.Her impairment category is Orthopaedic Disorders 08 - O ther Orthopaedic (08.9).Pre-morbidly, Pt. was independent/mod-I in Social Cognition, Communication, S phincter Control, Locomotion, Self-Care, and Transfers Control; and she had good Sphincter Control.Cu rrently, she has deficits of Locomotion, Self-Care, Transfers Control, Safety Awareness, Balance, and Endurance.Pt. is now referred to [facility] for acute in-patient rehabilitati on in order to maximize patient's functional independence in activities of daily living, strength, RO M, and mobility.- Rehab Goal Patient has realistic goal of being discharged at assistance level 6-Betsy to reside at Home with Fam sukumar/Relatives. MDM/PLAN: - Physical Therapy Weakness - to improve, our physical therapists will perform initial evaluation of pt's status upon a dmission and devise an individualized program for Aquatic Therapy, Neuromuscular Reeducation, and Str engthening Poor balance - to improve, our physical therapists will perform initial evaluation of pt's status up on admission and devise an individualized program for Balance Training Inability to transfer - to improve, our physical therapists will perform initial evaluation of pt's status upon admission and devise an individualized program for Bed mobility Decreased range of motion - to improve, our physical therapists will perform initial evaluation of p t's status upon admission and devise an individualized program for increasing patient's Range of Kuldeep on. Need in caregiver upon discharge - to improve, our physical therapists will perform initial evaluati on of pt's status upon admission and devise an individualized program for Caregiver Training Poor endurance - to improve, our physical therapists will perform initial evaluation of pt's status upon admission and devise an individualized program for Endurance Training Gait dysfunction - to improve, our physical therapists will perform initial evaluation of pt's statu s upon admission and devise an individualized program for Gait Training, and Wheel Chair mobility Need for home safety evaluation - to improve, our physical therapists will perform initial evaluatio n of pt's status upon admission and devise an individualized program for Home Evaluation New precaution - to improve, our physical therapists will perform initial evaluation of pt's status upon admission and devise an individualized program for Patient precaution education Edema - to improve, our physical therapists will perform initial evaluation of pt's status upon admi ssion and devise an individualized program for Elevation Training, and Lymphedema Therapy - Occupational Therapy Weakness - to improve, our occupation therapists will perform initial evaluation of pt's status upon admission and devise an individualized program for Aquatic Therapy, Balance, Endurance, UE ROM, and UE strengthening ADL deficits - to improve, our occupation therapists will perform initial evaluation of pt's status upon admission and devise an individualized program for Bathing, Bed mobility, Community Reintegratio n, Cooking, Dressing, Eating, Fine Motor Skills, Grooming, Homemaking, Kitchen Mobility, Laundry, Pat ient Education, Safety Awareness, Splinting - Positioning, Transfers(Toilet, Tub, Shower), and Wheel Chair Management Need for ambulatory care - to improve, our occupation therapists will perform initial evaluation of pt's status upon admission and devise an individualized program for Caregiver Training - Diet Type Continue Regular - Diet - Liquid Texture Continue Regular - Tube Feed Continue N/A - Weight Bearing Precaution NWB right UE WBAT right LE - Skin care per protocol - Diet - Solid Texture Continue Regular - Shower allowing shower - Balance for Weakness - Bed mobility for ADL deficits FUNCTIONAL STATUS: UPDATED AT WEEKLY TEAM CONFERENCE - Bladder Same accident frequency: 7-Ind - No accidents in the past 7 days - Bowel Same accident frequency: 7-Ind - No accidents in the past 7 days - Walking Same score based on distance walked: 0(N/A) - Wheelchair Same score based on distance traveled: 0(N/A) FUNCTIONAL STATUS: - Self-Care A. Eating Mary B. Grooming Mary C. Bathing Dep D. Dressing - Upper Dep E. Dressing - Lower Dep F. Toileting modA - Sphincter Control G: Bladder control Dep H: Bowel control Ind - Transfers Control I. Bed/Chair/Wheelchair modA J. Toilet modA K. Tub/Shower ADNO - Locomotion L. Walk/Wheelchair (B) modA M. Stairs ADNO - Communication N. Comprehension (B) Ind O. Expression (B) Ind - Social Cognition P. Social Interaction Ind Q. Problem Solving Ind R. Memory Ind - Endurance Fair - Balance Fair - Safety Awareness Fair CURRENT FUNC. DEFICITS: Locomotion, Self-Care, Transfers Control, Safety Awareness, Balance, and Endurance SIGNATURE PANEL: (CDT)
--- NOTE | 2018-07-29 05:02 | DS ---
Date of Discharge: 07/28/2018 Disposition: Discharged to go to skilled nursing. Physical Examination: HEENT: Unremarkable. Lungs: Clear to auscultation. Heart: Sounds normal. Abdomen: Soft, bowel sounds normal. No guarding, rigidity, tenderness, distention. Extremities: No leg edema. Laboratory Data: Last white count 4, hemoglobin 8.7, platelets 283. Last chemistry; sodium 141, pot assium 3.7, chloride 101, bicarb 37, BUN 27, creatinine 1.20, glucose 102. Discharge Medications And Instructions: The patient to take medication as per discharge order. Fall precautions. Lovenox 40 mg subcutaneous injection daily for 2 weeks. Consult Physical Therapy, Occ upational Therapy. Follow up with Dr. Mora in 2 weeks. Next follow up at my office 1 week after dis charge from skilled nursing. Hospital Course: An 88-year-old female patient who was admitted to the hospital after she fell down. The patient was initially admitted to medical floor and subsequently she was transferred to rehab. She has a right patella fracture and right shoulder fracture. She received physical therapy under g uidance of Dr. Ybarra. Anemia problem remained stable. Her blood pressure and COPD problem remain ed stable as well with medications. She required less and less pain medication. The patient says th at tramadol she is not able to tolerate that as it causes stomach upset and nausea type of problem, a nd hydrocodone that she has been getting has helped to control her pain very well. She mostly takes it 2 times a day morning and evening time. She has participated well with physical therapy, improved quite a bit, but she is not comfortable going back home to live in apartment or by herself, and she requested for rehab to make arrangements for her to go to correction facility for [facility]-term sta y. After all the arrangements completed today, she was discharged in stable condition. Final Diagnoses: 1.Right patella fracture. 2.Hemarthrosis, right knee. 3.Right shoulder fracture. 4.Constipation. 5.Anemia. 6.Ventricular tachycardia, paroxysmal. 7.Hypertension. 8.Chronic obstructive pulmonary disease. 9.Fracture, left foot, second toe. 10.Thyroid nodule. GIA/MODL Voice ID: [id number] Report ID: [id number]
== END 2018-07-28 13:20 | DRG 560 ==
LOC: 5TH 17:52
PROVIDERS: ADMIT Internal Medicine; ATTEND Internal Medicine
DX: S82.001D Unspecified fracture of right patella, subsequent encounter for closed fracture with routine healing (principal); D62 Acute posthemorrhagic anemia; I47.2 Ventricular tachycardia; J44.9 Chronic obstructive pulmonary disease, unspecified; S72.421D Displaced fracture of lateral condyle of right femur, subsequent encounter for closed fracture with routine healing; S43.004D Unspecified dislocation of right shoulder joint, subsequent encounter; S92.912D Unspecified fracture of left toe(s), subsequent encounter for fracture with routine healing; E04.1 Nontoxic single thyroid nodule; I12.9 Hypertensive chronic kidney disease with stage 1 through stage 4 chronic kidney disease, or unspecified chronic kidney disease; N18.3 Chronic kidney disease, stage 3 (moderate); K21.9 Gastro-esophageal reflux disease without esophagitis; K59.00 Constipation, unspecified
CPT/HCPCS: 36415; 80048; 81001; 82040; 83735; 84134; 85014; 85018; 85025; 87086; 87088; 94640; 97542; J1650